=== PATIENT | female | born 1985 | race Caucasian/White ===

== ENCOUNTER 2020-05-05 11:15 | Outpatient (CLI) | payer SELFPAY ==
--- NOTE | 2020-05-05 11:23 | XR_ITS ---
WS: [id number] Chest 2 views, 05/05/2020 Clinical Data: POSITIVE IGR Comparison: None. Findings: No nodules, masses or effusions are seen. The heart is normal. The pulmonary vascularity is not increased. No pneumonia or pneumothorax is seen. No evidence of tuberculosis is present. XR/XR chest 2V* [id number] Impression: Negative chest.
== END 2020-05-05 11:16 | disposition home or self-care (01) ==
PROVIDERS: Visit Provider Family Medicine
DX: R76.12 Nonspecific reaction to cell mediated immunity measurement of gamma interferon antigen response without active tuberculosis (principal)
CPT/HCPCS: 71046

== ENCOUNTER → 2020-07-09 10:18 | Outpatient (BNVA) | payer SELFPAY | PROVIDERS: Visit Provider Obstetrics & Gynecology | DX: Z32.01 Encounter for pregnancy test, result positive (principal) | CPT/HCPCS: 81025 ==

== ENCOUNTER → 2020-07-21 08:54 | Outpatient (BNVA) | payer SELFPAY | PROVIDERS: Visit Provider Nurse Practitioner Women's Health | DX: Z34.90 Encounter for supervision of normal pregnancy, unspecified, unspecified trimester (principal) | CPT/HCPCS: 81000 ==

== ENCOUNTER → 2020-08-05 11:27 | Outpatient (BNVA) | payer SELFPAY | PROVIDERS: Visit Provider Obstetrics & Gynecology | DX: Z34.90 Encounter for supervision of normal pregnancy, unspecified, unspecified trimester (principal) | CPT/HCPCS: 81000 ==

== ENCOUNTER → 2020-09-01 14:51 | Outpatient (BNVA) | payer OTHER, SELFPAY | PROVIDERS: Visit Provider Obstetrics & Gynecology | DX: O09.299 Supervision of pregnancy with other poor reproductive or obstetric history, unspecified trimester (principal); Z12.4 Encounter for screening for malignant neoplasm of cervix; O34.10 Maternal care for benign tumor of corpus uteri, unspecified trimester; D25.9 Leiomyoma of uterus, unspecified | CPT/HCPCS: 80307; 82950; 84315; 85027; 86592; 86762; 86803; 86850; 86900; 87086; 87340; 87491; 87591; 88175 ==

== ENCOUNTER → 2020-10-02 09:40 | Outpatient (BNVA) | payer OTHER, SELFPAY | PROVIDERS: Visit Provider Nurse Practitioner Women's Health | DX: O34.12 Maternal care for benign tumor of corpus uteri, second trimester (principal); O09.292 Supervision of pregnancy with other poor reproductive or obstetric history, second trimester; Z3A.16 16 weeks gestation of pregnancy; O34.10 Maternal care for benign tumor of corpus uteri, unspecified trimester; D25.9 Leiomyoma of uterus, unspecified; O09.299 Supervision of pregnancy with other poor reproductive or obstetric history, unspecified trimester | CPT/HCPCS: 82105; 84315; 87806 ==

== ENCOUNTER → 2020-12-23 11:11 | Outpatient (BNVA) | payer OTHER, SELFPAY | PROVIDERS: Visit Provider Obstetrics & Gynecology | DX: O09.299 Supervision of pregnancy with other poor reproductive or obstetric history, unspecified trimester (principal); O34.10 Maternal care for benign tumor of corpus uteri, unspecified trimester; D25.9 Leiomyoma of uterus, unspecified | CPT/HCPCS: 82950; 84315; 85027 ==

== ENCOUNTER → 2021-01-06 09:01 | Outpatient (BNVA) | payer OTHER, SELFPAY | PROVIDERS: Visit Provider Obstetrics & Gynecology | DX: O99.013 Anemia complicating pregnancy, third trimester (principal); O09.299 Supervision of pregnancy with other poor reproductive or obstetric history, unspecified trimester; R82.90 Unspecified abnormal findings in urine; O34.10 Maternal care for benign tumor of corpus uteri, unspecified trimester; D25.9 Leiomyoma of uterus, unspecified | CPT/HCPCS: 84315; 87077; 87086; 87184 ==

== ENCOUNTER → 2021-02-18 11:30 | Outpatient (BNVA) | payer OTHER, SELFPAY | PROVIDERS: Visit Provider Obstetrics & Gynecology | DX: O99.891 Other specified diseases and conditions complicating pregnancy (principal); R82.71 Bacteriuria | CPT/HCPCS: 84315; 87081; 87086 ==

== ENCOUNTER → 2021-03-04 12:18 | Outpatient (BNVA) | payer OTHER, SELFPAY | PROVIDERS: Visit Provider Obstetrics & Gynecology | DX: Z01.812 Encounter for preprocedural laboratory examination (principal); Z20.822 Contact with and (suspected) exposure to COVID-19 | CPT/HCPCS: 87635 ==

== ENCOUNTER 2021-03-09 14:00 | Outpatient (CLI) | payer OTHER, SELFPAY ==
[2021-03-09 14:25] VITALS: BP 123/77; PULSE 82; TEMP 36.6
[2021-03-09 14:57] VITALS: BP 120/69; PULSE 83
[2021-03-09 17:26] LABS: Basophils % 0.5 %; Eosinophils # 0.2 10^3/uL (0.0-0.8); Eosinophils % 3.1 %; Hematocrit 33.1 % (37.0-47.0); Lymphocytes # 1.6 10^3/uL (0.8-4.8); Lymphocytes % 25.5 %; Mean Corpuscular HGB Conc 33.2 g/dL (30.0-36.0); Mean Corpuscular Hemoglobin 29.7 pg (28.0-34.0); Mean Corpuscular Volume 89.5 fL (81-99); Mean Platelet Volume 10.3 fL (7.4-10.4); Monocytes # 0.5 10^3/uL (0.2-0.9); Monocytes % 7.6 %; Neutrophils # 4.05 10^3/uL (1.8-7.7); Nucleated Red Blood Cells % 0 %; Platelet Count 324 10^3/cmm (130-400); Red Cell Distribution Width 16.9 % (12.1-15.1); White Blood Count 6.4 10^3/uL (4.0-10.0)
[2021-03-10 06:27] VITALS: BMI 28.8
== END 2021-03-09 15:10 | disposition home or self-care (01) ==
LOC: OPOB 14:03 → OBGYN 14:04
PROVIDERS: Obstetrics & Gynecology; Visit Provider Obstetrics & Gynecology
DX: O61.9 Failed induction of labor, unspecified (principal); Z3A.00 Weeks of gestation of pregnancy not specified
CPT/HCPCS: 59025; 84315; 85025; 99211

== ENCOUNTER 2021-03-10 06:17 | Inpatient (IN) | payer OTHER, SELFPAY ==
[2021-03-10] VITALS (16 sets, daily range): BP systolic 112–146; BP diastolic 53–95; PULSE 71–102; RESP 16–18; TEMP 36.5–37.1; O2SAT 98–99; BMI 28.8
--- NOTE | 2021-03-10 06:30 | PC.NURSE ---
bedside US completed at 0620 to confirm position. Lead Cook along with MACARENA RN and WEN RN confirm positioning to be head down at 0620. Dr. Bowers to room at 0623 to confirm position with US as well. stated fetus to be head down. SVE of /-4 vertex was then done by at 0625
[2021-03-10] MEDS: oxytocin 30 UNIT/500 ML BAG IV (08:00)
[2021-03-10] MEDS: dextrose 5%-lactated ringers 1,000 ML 125 ML IV ×2 (08:05→18:24)
--- NOTE | 2021-03-10 13:30 | P.HPUD_ITS ---
Labor & Delivery H&P Update Date of Procedure: March 10, 2021 Date H&P Performed: 03/09/21 H&P update information: I have reviewed H&P completed within last 30 days, I have examined patient prior to procedure, Changes to prior documentation as noted here and H&P is in [facility] EMR on date indicated Changes to previous documentation: Fetus is cephalic now-we will start Pitocin for induction of labor. Discussed that this is an unstable lie and if the fetus change position again and becomes in her mouth position I would recommend a C- section. Labor and Delivery nurses notified to do scans if presenting partner felt on pelvic exam. Admission Diagnosis: Primary indication for procedure: Induction, possible Planned procedure: Operation Date: 03/10/21 13:30 Proposed Procedures p Section(Not Applicable) - Rdorick Power MD
[2021-03-10] MEDS: lactated ringers 1,000 ML 999 ML IV (15:21)
[2021-03-10] MEDS: metoclopramide 5 mg/mL SDV 2 mL 10 MG IV (15:22)
[2021-03-10] MEDS: famotidine 20 mg/2 mL INJ IVP (15:22)
--- NOTE | 2021-03-10 15:30 | PC.NURSE ---
pt ambulated to OR suite
--- NOTE | 2021-03-10 15:58 | ANES.PREANE2 ---
Pre-Anesthetic Assessment Pre-Anesthetic Assessment: Height/Weight: Height 1.68 m Weight 81.193 kg Temp Pulse Resp BP 97.7 F 75 18 120/77 03/10/21 08:01 03/10/21 13:39 03/10/21 06:30 03/10/21 13:39 Proposed Procedure: Operation Date: 03/10/21 13:30 Proposed Procedures p Section(Not Applicable) - Rodrick Power MD Was Beta Maryam taken within 24 hours: N/A Was Clonidine taken within 24 hours: N/A Social: Social History: No alcohol and No tobacco Exam: Pre-Anes Outpt Exam: alert, oriented x 3, clear to auscultation bilaterally and regular rate & rhythm Airway: Submandibular: WNL Cervical ROM: WNL MP: 2 Dentition: Full CV/HEM: CV/HEM: Anemia Anesthetic Plan: ASA status: 2 Anesthesia: Regional (specify below) (SAB) Risk of > 500 ml blood loss (7ml/kg in children): Yes, adequate IV access and fluids planned Meds/Allergies Current Medications: Current Medications Generic Name Dose Route Start Last Admin Trade Name Freq PRN Reason Stop Dose Admin Dextrose/Lactated Ringer's 1,000 mls @ 125 m ls/hr 03/10/21 07:15 03/10/21 08:05 Dextrose 5%-Lact ated Ringers IV 125 mls/hr .Q8H RUSSELL Administration Oxytocin 30 unit in 500 ml s @ 1 mls/hr 03/10/21 08:00 03/10/21 08:00 Pitocin IV 1 milliunit/min .Q24H RUSSELL 1 mls/hr Administration Protocol 1 MILLIUNIT/MIN Lactated Ringer's 1,000 mls @ 999 m ls/hr 03/10/21 14:09 03/10/21 15:21 Lactated Ringers IV 999 mls/hr .Q1H1M PRN Administration Per L&D Rescitati on Protocol PFSH Anesthesia PFSH: Medical History No pertinent past medical history Denies diabetes, asthma, hypertension, seizures, DVT/PE PCP: Sees any of the providers at [facility] Surgical History No pertinent past surgical history Family History Brother Diabetes Father Heart disease Hypertension Grandmother Stroke Paternal Denies family history of Colon cancer Ovarian cancer Hyperlipidemia Breast cancer Uterine cancer Thyroid disease Female Reproductive History: : 2 Data Anesthesia Cardiac Studies: No Data to Display
[2021-03-10] MEDS: methylergonovine 0.2 mg/mL INJ 1 mL IM (16:06)
--- NOTE | 2021-03-10 17:00 | P.OP_ITS ---
Operative Report Date of procedure: March 10, 2021 OPERATIVE REPORT Date of surgery: 03/10/2021 Date of dictation: 03/10/2021 Preoperative diagnosis: 35-year-old 3 para 1-0-1-1 at 39 weeks and 3 days gestation, unstable lie, macrosomia, anemia on iron Postoperative diagnosis/findings: Same, baby boy weighing 10 pounds 0 ounces Apgars of 8/9, compound presentation with hand overhead, clear fluid, normal tubes and ovaries bilaterally. Procedure done: Primary low transverse delivery via Pfannenstiel incision Specimens removed/disposition of specimens: Placenta and cord which were discarded Surgeon: Dr. Rodrick Bowers [employer] Supervisor: Lavern Georges Anesthesia: Spinal anesthesia Estimated blood loss: 900 ml Intravenous fluids: 600 mL of LR Urine output: 100 mL of clear urine at the end of procedure Medications: As per anesthesia records Complications: None, patient was left to recover in a stable condition with baby INDICATION FOR SURGERY: Ms. Farmer is a 35-year-old 3 para 1-0-1-1 at 39 weeks and 3 days who presented to labor and delivery on 03/10/2021 for scheduled version, possible delivery for transverse lie. When she had presented on 03/09/2021 for scheduled induction she was noted to have a baby in transverse position and at that visit we discussed options for version versus primary and she is scheduled to come in on 03/10/2021 for this procedure. On her arrival fetus was noted to be in cephalic presentation however station was still pretty high at - 5. We discussed at that time that since baby is cephalic we should start induction with Pitocin and hopefully the baby will stay cephalic however since the baby changed positions there is a high risk that the baby can flip back to transverse position--unstable lie. If this happens during the induction process she will need a . She was agreeable with this and had no questions. Risks and benefits of induction versus reviewed with patient. Induction was started with Pitocin and about 1-1/2 hours into the induction after patient got up and use the bathroom to void there was a change in the position of heart rate and ultrasound performed showed fetus was back to being transverse presentation with head in the right middle quadrant. Given this unstable lie after counseling we decided to proceed with and patient agreed. Consents were signed. PROCEDURE: After consent was obtained, patient was taken to the operating room where spinal anesthesia was placed without difficulty. She was placed supine on the table with a left lateral wedge. Quijano catheter and SCDs were placed. The abdomen was shaved and then prepped with duo prep. She was draped in a sterile fashion. After checking adequacy of anesthesia, a Pfannenstiel incision was made 2 cm above the pubic symphysis. The incision was carried down to the fascia using the Bovie. The fascia was nicked in the midline and the fascial incision was extended laterally using curved Mayos. The inferior aspect of the fascia was grasped with lasha clamps and dissected off from the underlying rectus muscle. This was repeated again superiorly without any difficulty. The rectus muscle was . A moreno was made in the peritoneum and the peritoneal incision was carried inferiorly taking care to proceed in layers so as to avoid the bladder. The peritoneal incision was extended superiorly as well. No adhesions were noted from the uterus to the anterior abdominal wall. The uterus was noted to be rotated to the left. The bladder peritoneum was grasped with smooth forceps a bladder flap was created. the bladder blade was replaced thus protecting the bladder. A LOW TRANSVERSE UTERINE INCISION was made with a scalpel till the amniotic membrane was reached. The uterine incision was then extended laterally using bandage scissors. Amniotomy was done with Allis clamps and clear amniotic fluid was drained. The head of the baby was brought up to the level of the incision and delivered with fundal pressure. The remainder of body followed without any difficulty. The nose and mouth were suctioned, the umbilical cord was clamped and cut and the baby was handed off to the waiting head of store operations, Dr. Hagen. The placenta was delivered spontaneously with fundal massage. It was noted to be intact and was discarded. The interior of the uterus was cleaned of all clot and debris and was noted to be boggy. Fundal massage was done and the tone did improve however became boggy shortly after again. Decision was gave need to give Methergine to help with uterine contractility and she was given a single dose after which the uterus stayed firm and was noted to be kolton well. T he uterus was exteriorized. The uterine incision was closed with 0 Vicryl in a running interlocking manner. Good hemostasis and reapproximation was obtained. Second interrupted imbricating layer was done. Good hemostasis was noted. The abdomen was irrigated and the gutters were cleaned of clot and debris. Normal tubes and ovaries were noted bilaterally. The uterus was placed back into the abdomen and uterine incision was noted to be hemostatic. The peritoneum was closed with a 2-0 plain in a continuous stitch. The rectus muscle was reapproximated with 2-0 plain suture in a mattress stitch. Good hemostasis was noted in the rectus muscle layer. The fascia was inspected for any defects and none were found and the fascia was closed with 0 Vicryl in continuous stitch. The subcutaneous plane was then irrigated and hemostasis was obtained using the Bovie. The subcutaneous plane was then reapproximated using 2-0 plain suture in a continuous manner. The skin was then closed with 4-0 Monocryl in a subcuticular fashion. Good reapproximation and hemostasis was noted. Steri-Strips were applied. The incision was dressed with Telfa ,ABD and paper tape. The fundus was noted to be firm at the end of the procedure and excess blood was expressed from the vagina. The patient was left to recover in a stable condition. This documentation was created by [employer] minister helper software (known for inherent minister helper error). Every effort was made to assure accuracy of minister helper. Any obvious errors or omissions should be clarified with the author of the document. History History History 3 Term 2 Miscarriages/Ectopic 1 0 Living Children 2 Other History: 3, Para 1011, x 1 SAB x 1 CD X 1 1---> 08/17/2013, male,(Stef) 9lbs 9oz, full-term vaginal delivery- had episiotomy, no complications with or delivery, delivered at [place], [place]. Denies diabetes during the 2---> 2017, SAB at 5 week gestation, no D&C required 3---> 03/10/2021, male(March), 10 pounds 0 ounces, primary low transverse delivery for unstable lie delivered by Dr. Bowers at [facility] Medical History (Updated 03/09/21 @ 18:03 by Rodrick Power MD) No pertinent past medical history Denies diabetes, asthma, hypertension, seizures, DVT/PE PCP: Sees any of the providers at [facility] Surgical History (Updated 03/10/21 @ 17:08 by Rodrick Power MD) Status post delivery 03/10/2021--primary low transverse delivery by Dr. Bowers at [facility] for unstable lie. ---> No extensions, double layer closure Family History Brother Diabetes Father Heart disease Hypertension Grandmother Stroke Paternal Denies family history of Colon cancer Ovarian cancer Hyperlipidemia Breast cancer Uterine cancer Thyroid disease Supplemental [facility] Information - Tobacco Use: Denies, never smoked. Drug Use: Denies Alcohol Use: Drank socially prior to . 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 Has been working there since May 2020 Other Female Reproductive History Menstrual History Comment: Menarche at age 14 with a cycle length of 28-30 days and a bleeding duration of 5 days. Sexual History Sexual History Comment: Coitarche at age 26, 4 lifetime partners, has with her current partner and father of her baby, Ezekiel, since 2018. He works in law enforcement STD History Comment: Has had chlamydia in the past which was treated. Denies any other sexually transmitted diseases Contraception Contraception History Comment: She has used condoms and control pills in the past for contraception. Considering progesterone only options for contraception .
[2021-03-10] MEDS: ondansetron 2 mg/ML SDV 2 mL 4 MG IVP ×2 (17:42→19:29)
[2021-03-10] MEDS: promethazine 25 mg/mL SDV 1 mL IM (19:41)
--- NOTE | 2021-03-11 00:48 | PC.NURSE ---
This nurse noted blood on the outside of patient bandage. Skin around bandage was cleaned then telfa, ABD and paper tape were replace with same materials. Incision was clean with no signs of drainage.
[2021-03-11 01:30] VITALS: BP 124/86; PULSE 96; RESP 16
[2021-03-11] MEDS: dextrose 5%-lactated ringers 1,000 ML 125 ML IV (02:09)
[2021-03-11 03:00] VITALS: BP 124/82; PULSE 94; RESP 16
[2021-03-11 04:17] LABS: Hemoglobin 9.6 g/dL (11.5-15.3); Mean Corpuscular HGB Conc 33.1 g/dL (30.0-36.0); Mean Corpuscular Hemoglobin 29.7 pg (28.0-34.0); Mean Corpuscular Volume 89.8 fL (81-99); Mean Platelet Volume 9.2 fL (7.4-10.4); Platelet Count 253 10^3/cmm (130-400); Red Blood Count 3.23 10^6/uL (4.1-5.3); Red Cell Distribution Width 16.4 % (12.1-15.1)
[2021-03-11] MEDS: HYDROcodone-acetaminophen 5-325 mg Tablet PO (04:47)
--- NOTE | 2021-03-11 06:15 | P.PN_ITS ---
Subjective Subjective: Interval history: SUBJECTIVE: Ms. Farmer is doing okay today. She really does not have a whole lot of pain. Feels a lot better than yesterday her nausea is completely resolved. She has been tolerating clear liquid diet without any nausea and denies heavy vaginal bleeding. She is breast-feeding well and denies any problems with the. She would like her son to be circumcised. She denies shortness of breath, chest pain, nausea, vomiting. Has been burping but has not yet passed gas. Catheter was just taken out about 1 hour before and she has not voided since catheter removal. OBJECTIVE/PHYSICAL EXAM: Gen.: No acute distress Heart: S1-S2 heard, regular rate and rhythm Lungs: Clear to auscultation bilaterally Abdomen: Soft, fundus firm below umbilicus, tenderness around incision. Incision: Dressing on appears clean dry and intact Legs: No calf tenderness, no pedal edema. ASSESSMENT AND PLAN: 35-year-old 2 para 2002 status post primary delivery, postoperative day #1 -Continue routine postoperative care -Encourage ambulation, SCDs while in bed -P.o. pain medication -Advance diet to full liquid diet and then to regular only once patient passes flatus -Vital signs stable, hemoglobin stable at 9.6 -Once she tolerates full liquid diet cut down fluids to 50 mL an hour -Dressing can come off the afternoon and patient may shower -Incentive spirometer use encouraged -Anticipate discharge home in the next couple of days depending on how she recovers postoperatively -Counseled about circumcision, informed consent obtained--- plan for circum cision today. Vitals/I&O/Wt Last Vital Signs Temp 98.7 F 03/10/21 22:32 Pulse 96 03/11/21 01:30 Resp 16 03/11/21 01:30 BP 124/86 03/11/21 01:30 Pulse Ox 99 03/10/21 17:30 03/10/21 03/10/21 03/11/21 14:59 22:59 06:59 Intake Total 1.50 / 1.50 1965.000 / 1966.500 968.75 / 2935.250 Output Total 550 / 550 725 / 1275 Balance 1.50 / 1.50 1415.000 / 1416.500 243.75 / 1660.250 Weight last 48 hrs Weight 179 lb Physical Exam Urinary Catheter Management^: Quijano: Cath Placed During This Visit: yes, but has since been removed by the nurse Reason for Continuing Indwelling Catheter: Decision to DC Catheter Urinary Catheter Date of Insertion: 03/10/21 Urinary Catheter Time of Insertion: 15:45 Date Urinary Catheter Removed: 03/11/21 Time Urinary Catheter Discontinued: 05:00 Data : 03/11/21 04:07 Attestations Medical Necessity Statement*: Needs to stay couple more days to recover from delivery Coding Level of Care Code Acute Kiln Furniture Saw Tender for Edward Jerez
--- NOTE | 2021-03-11 06:56 | ANE.PACU2 ---
Inpatient post-anesthesia follow up: Airway intact: Yes Vital signs: Temperature 98.7 F Pulse Rate 96 Respiratory Rate 16 Blood Pressure 124/86 Pulse Oximetry 99 Oxygen Delivery Me thod Room Air Oxygen Flow Rate Fraction of Inspir ed Oxygen Hydration adequate: Yes Nausea and vomiting: No Pain level: 2 Mental status: Baseline
[2021-03-11] MEDS: ibuprofen 800 mg tablet PO ×4 (09:22→21:37)
[2021-03-11] MEDS: ferrous sulfate EC 325 mg Tablet PO ×2 (09:22→18:03)
[2021-03-11] MEDS: prenatal vitamin Capsule 1 CAP PO (09:22)
[2021-03-11] MEDS: docusate sodium 100 mg Capsule PO ×2 (09:22→18:03)
[2021-03-11 09:25] VITALS: BP 138/81; PULSE 98; RESP 16; TEMP 36.7
[2021-03-11 16:00] VITALS: BP 127/72; PULSE 95; RESP 18; TEMP 36.8
[2021-03-11 17:34] VITALS: BP 115/77; PULSE 95; RESP 16; TEMP 37.2; O2SAT 99
[2021-03-11 21:38] VITALS: BP 123/74; PULSE 97; RESP 16; O2SAT 99
[2021-03-12 04:34] VITALS: BP 103/67; PULSE 93; RESP 16; TEMP 36.9; O2SAT 96
--- NOTE | 2021-03-12 06:41 | PC.NURSE ---
2100 dose Ibuprofen was scanned and saved. When this nurse opened MAR the next time pt needed medication it had not been save so I manually documented it.
[2021-03-12] MEDS: HYDROcodone-acetaminophen 5-325 mg Tablet PO (06:44)
--- NOTE | 2021-03-12 08:28 | PM.OBGYDC ---
Discharge Providers DIRECTOR EMERGENCY DEPARTMENT Date of Admission: 03/10/21 06:17 Date of Discharge: 03/12/21 Attending Provider at Admission: Rodrick Power MD Attending Provider at Discharge: Rodrick Power MD Preoperative diagnosis: 35-year-old 3 para 1-0-1-1 at 39 weeks and 3 days gestation, unstable lie, macrosomia, anemia on iron Postoperative diagnosis/findings: Same, baby boy weighing 10 pounds 0 ounces Apgars of 8/9, compound presentation with hand overhead, clear fluid, normal tubes and ovaries bilaterally. Procedure done: Primary low transverse delivery via Pfannenstiel incision Specimens removed/disposition of specimens: Placenta and cord which were discarded Complications: None, patient was left to recover in a stable condition with baby INDICATION FOR SURGERY: Ms. Farmer is a 35-year-old 3 para 1-0-1-1 at 39 weeks and 3 days who presented to labor and delivery on 03/10/2021 for scheduled version, possible delivery for transverse lie. When she had presented on 03/09/2021 for scheduled induction she was noted to have a baby in transverse position and at that visit we discussed options for version versus primary and she is scheduled to come in on 03/10/2021 for this procedure. On her arrival fetus was noted to be in cephalic presentation however station was still pretty high at -5. We discussed at that time that since baby is cephalic we should start induction with Pitocin and hopefully the baby will stay cephalic however since the baby changed positions there is a high risk that the baby can flip back to transverse position--unstable lie. If this happens during the induction process she will need a . She was agreeable with this and had no questions. Risks and benefits of induction versus reviewed with patient. Induction was started with Pitocin and about 1-1/2 hours into the induction after patient got up and use the bathroom to void there was a change in the position of heart rate and ultrasound performed showed fetus was back to being transverse presentation with head in the right middle quadrant. Given this unstable lie after counseling we decided to proceed with and patient agreed. HOSPITAL COURSE: She underwent an uncomplicated primary delivery for unstable lie on 03/10/2021. She did well on day 0 and was ambulating well, tolerating clear liquid, voiding freely, passing flatus. She was breast-feeding without difficulty and bonding well with her son. Circumcision was performed on her son on day of life 1 per her request without any difficulty. Pain was well-controlled with by mouth pain medication. She denied nausea, vomiting, fever, chills, shortness of breath, leg pain. She had moderate vaginal bleeding. On day # 1 she continued to do well with stable vital signs and stable hemoglobin at 9.6. She tolerated regular diet after passing flatus and denied any further problems. She continued to do well on postoperative day #2.. She was discharged home on day 2 in a stable condition, as she desired early discharge. Warning signs for endometritis, mastitis, DVT/PE, wound infection were reviewed with her. Post delivery activity restrictions were also reviewed with her at all her questions were answered to her satisfaction. She plans on using pills for contraception--this will be started at her post visit EXAM AT DISCHARGE: Gen.: No acute distress Heart: S1-S2 heard, regular rate and rhythm Lungs: Clear to auscultation bilaterally Abdomen: Soft, fundus firm below umbilicus, tenderness around incision. Incision: Clean dry and intact with Steri-Strips. Legs: No calf tenderness, no pedal edema. CONDITION AT DISCHARGE: Stable This documentation was created by [employer] hat and cap sewer software (known for inherent hat and cap sewer error). Every effort was made to assure accuracy of hat and cap sewer. Any obvious errors or omissions should be clarified with the author of the document. Information Peripartum Data: Delivery Method: Physical Exam Urinary Catheter Management^: Quijano: Cath Placed During This Visit: yes, but has since been removed by the nurse Reason for Continuing Indwelling Catheter: Decision to DC Catheter Urinary Catheter Date of Insertion: 03/10/21 Urinary Catheter Time of Insertion: 15:45 Date Urinary Catheter Removed: 03/11/21 Time Urinary Catheter Discontinued: 05:00 Discharge Data Vitals: Last Vital Signs Temp 98.4 F 03/12/21 04:34 Pulse 93 03/12/21 04:34 Resp 16 03/12/21 04:34 BP 103/67 03/12/21 04:34 Pulse Ox 96 03/12/21 04:34 Discharge Plan Discharge Patient Disposition: Home Condition: Stable Prescriptions: New ibuprofen 800 mg tablet 800 mg PO Q8H Qty: 30 RF: 0 docusate sodium 100 mg Capsule 100 mg PO BID PRN (Reason: constipation) Qty: 30 RF: 0 hydrocodone-acetaminophen 5-325 mg tablet 1 tab PO Q6H Qty: 20 RF: 0 Continued prenat.vits,jazmin,[id number] Tablet 1 tab PO DAILY RF: 0 Discontinued ferrous sulfate 325 mg (65 mg iron) tablet,delayed release (DR/EC) 325 mg PO BID Qty: 90 RF: 2 No Action (DME) breast pump [Pump In Style Advanced] Device See Rx Instructions .ROUTE .MEDSUPPLY Qty: 1 RF: 0 Discharge Orders: Discharge Order (Routine); Ordered 03/12/21 Ordered By: Rodrick Power Referrals: Rodrick Power MD [Physician] - 03/23/21 9:15 am (Your 2 week incision check is scheduled for 03/23/21 @ 9:15. Your 6 week post-op appointment is scheduled for 04/20/21 @ 10:30. ) Discharge Diet: Usual diet Discharge Activity: Limit activity as instructed Patient Instructions: Vitamins (By mouth), Depression (GEN), Pre-eclampsia and Eclampsia (DC), Bleeding (DC), OB C, OB Discharge Report, OB Food/Drug Interaction Guide, Opioid Safety, OB Proud Parent Packet Activity Restrictions/Additional Instructions: Pelvic rest for 6 weeks, no heavy lifting for 6 weeks, 2-week and 6-week postoperative visit with Dr. Bowers. Discharge Attestations DIRECTOR EMERGENCY DEPARTMENT Time Spent in Discharge Care*: greater than 30 min Coding Level of Care Code Acute Structural Iron Worker for Edward Jerez
[2021-03-12] MEDS: prenatal vitamin Capsule 1 CAP PO (09:13)
[2021-03-12] MEDS: ibuprofen 800 mg tablet PO (09:13)
[2021-03-12] MEDS: docusate sodium 100 mg Capsule PO (09:13)
[2021-03-12] MEDS: ferrous sulfate EC 325 mg Tablet PO (09:14)
[2021-03-12 10:36] VITALS: BP 111/65; PULSE 94; RESP 16; TEMP 36.8; O2SAT 99
== END 2021-03-12 11:28 | disposition home or self-care (01) | DRG 788 ==
PROVIDERS: Admitting Provider Obstetrics & Gynecology; Visit Provider Obstetrics & Gynecology
PROC: 10D00Z1 Extraction of Products of Conception, Low, Open Approach (ICD-10-PCS; CPT 59514; principal; 2021-03-10 13:30)
DX: O32.2XX0 Maternal care for transverse and oblique lie, not applicable or unspecified (principal); O36.63X0 Maternal care for excessive fetal growth, third trimester, not applicable or unspecified; O99.02 Anemia complicating childbirth; D64.9 Anemia, unspecified; O34.13 Maternal care for benign tumor of corpus uteri, third trimester; D25.9 Leiomyoma of uterus, unspecified; Z3A.39 39 weeks gestation of pregnancy; Z37.0 Single live birth
CPT/HCPCS: 36415; 51702; 59025; 59409; 85027; 96372; 96374; 96375; 98960; 99211; J0690; J2210; J2274; J2405; J2550; J2765; J3010; J3490; J7030

== ENCOUNTER → 2021-04-20 14:31 | Outpatient (BNVA) | payer OTHER, SELFPAY | PROVIDERS: Visit Provider Obstetrics & Gynecology | DX: Z30.9 Encounter for contraceptive management, unspecified (principal) | CPT/HCPCS: 81025 ==

== ENCOUNTER → 2021-04-30 08:09 | Outpatient (BNVA) | payer OTHER, SELFPAY | PROVIDERS: Visit Provider Obstetrics & Gynecology | DX: D25.9 Leiomyoma of uterus, unspecified (principal); N83.201 Unspecified ovarian cyst, right side | CPT/HCPCS: 76857 ==

== ENCOUNTER → 2021-08-09 15:39 | Outpatient (BNVA) | payer OTHER, SELFPAY | PROVIDERS: Visit Provider Family Medicine | DX: J01.90 Acute sinusitis, unspecified (principal); R05.9 Cough, unspecified | CPT/HCPCS: 87400; 87635 ==

== ENCOUNTER 2022-02-03 15:32 | Outpatient (CLI) | payer OTHER, SELFPAY | END 2022-02-03 15:33 | disposition home or self-care (01) | LOC: LAB 15:37 | PROVIDERS: PCP Obstetrics & Gynecology; Visit Provider Obstetrics & Gynecology | DX: Z32.00 Encounter for pregnancy test, result unknown (principal) | CPT/HCPCS: 36415; 84702 ==

== ENCOUNTER → 2022-02-04 13:10 | Outpatient (BNVA) | payer OTHER, SELFPAY | PROVIDERS: PCP Obstetrics & Gynecology; Visit Provider Obstetrics & Gynecology | DX: Z30.9 Encounter for contraceptive management, unspecified (principal) | CPT/HCPCS: 81025 ==

== ENCOUNTER → 2023-08-10 08:30 | Outpatient (BNVA) | payer OTHER, SELFPAY | PROVIDERS: PCP Obstetrics & Gynecology; Visit Provider Obstetrics & Gynecology | DX: N90.89 Other specified noninflammatory disorders of vulva and perineum (principal) | CPT/HCPCS: 81025; 88305 ==

== ENCOUNTER 2024-06-27 08:27 | Inpatient (IN) | payer OTHER, SELFPAY ==
[2024-06-27] VITALS (22 sets, daily range): BP systolic 100–149; BP diastolic 62–93; PULSE 96–130; RESP 14–26; TEMP 36.4–39.7; O2SAT 93–100; BMI 32.4
--- NOTE | 2024-06-27 08:45 | ED_ITS ---
HPI - Female Genitourinary 2 General: Chief complaint: Urogenital-Female Stated complaint: Poss UTI Time Seen by Provider: 06/27/24 08:30 Source: patient Mode of arrival: ambulatory Limitations: no limitations History of Present Illness: 39-year-old female whose had swelling pa in in her left buttocks for the last 6 days. She has seen urgent care and was told she had hemorrhoids she states she is a lot more pain swelling no erythema and some drainage. She denies any vomiting or diarrhea. Associated symptoms: Deny abdominal pain, headache(s) or nausea Related Data Previous Rx's Medication Instructions Recorded medroxyprogesterone 150 mg/mL 150 mg IM .every 10-12 weeks #1 mL 09/06/23 intramuscular suspension (Depo-Provera) hydrocortisone 1 %-pramoxine 1 % 1 applic MD QID PRN itching #10 06/24/24 rectal foam (Proctofoam HC) grams phenylephrine HCl 0.25 % rectal 1 supp MD BID PRN hemorrhoids #12 06/24/24 suppository (Preparation H (pe)) ea Allergies Allergy/AdvReac Type Severity Reaction Status Date / Time No Known Allergies Allergy Verified 06/27/24 08:28 Review of Systems 2 Const: Denies: fever(s), chills, body aches or change in appetite ENMT: Denies: throat pain or dental pain Card: Denies: chest pain Resp: Denies: dyspnea GI: Denies: abdominal pain, nausea, vomiting or diarrhea Musc: Denies: neck pain or back pain Skin/Breast: Denies: rash Neuro: Denies: headache(s) PFSH ED 2 PFSH: Medical History No pertinent past medical history Denies diabetes, asthma, hypertension, seizures, DVT/PE PCP: Sees any of the providers at [facility] Surgical History Status post delivery 03/10/2021--[place] transverse [place] [facility] [place]. ---> No extensions, double layer closure Family History Brother Diabetes Father Heart disease Hypertension Grandmother Stroke Paternal Denies family history of Colon cancer Ovarian cancer Hyperlipidemia Breast cancer Uterine cancer Thyroid disease Social History Smoking and tobacco/nicotine status: never used tobacco/nicotine Second hand smoke exposure: No Alcohol intake: never Substance/Drug Use: never Procedures Abscess I/D Site: other (gluteal cleft) Side (if applicable): left Local Anesthetic: lidocaine 1% Amount of anesthesia used (mL): 10 Technique: incised with #11 blade Packing used?: iodoform Course 2 Vital Signs: Vital signs: Vital Signs Temperature 97.5 F L 06/27/24 08:28 Pulse Rate 116 H 06/27/24 08:28 Respiratory Rate 17 06/27/24 08:48 Blood Pressure 135/84 06/27/24 08:28 Pulse Oximetry 98 06/27/24 08:48 MDM - Female Medical Decision Making Patient presents here with perianal abscess did have a large amount of drainage CAT scan if she still has a deep fluid pocket and elevated white count I spoke to general surgeon who is going to admit and likely take to the OR for further drainage Medical Records I reviewed the patient's medical records. Lab Data I reviewed the patient's lab results. 06/27/24 08:45 06/27/24 08:45 Radiology Impressions Abdomen/Pelvis CT 06/27/24 09:10 IMPRESSION: 1. Midline to left-sided Perianal abscess, as described above. Adjacent severe edema, fluid and air bubbles extending into the posterior left gluteal deep subcutaneous tissues. Recommend surgical consultation. 2. Acute appendicitis, as described above. Recommend surgical consultation. 3. Moderate to severe hepatic steatosis. Nonspecific heterogeneous and irregular appearance of the liver. Recommend correlation with liver function tests. 4. Indeterminate liver hypodensity, described above. Consider imaging followup. 5. Indeterminate pancreas hypodensity, described above. Recommend further evaluation with dynamic pre-and postcontrast MRI. Laboratory Results WBC 17.03 10^3/uL (3.29-11.43) H 06/27/24 08:45 RBC 4.06 10^6/uL (3.85-5.65) 06/27/24 08:45 Hgb 11.30 g/dL (11.27-16.99) 06/27/24 08:45 Hct 34.0 % (36-47) L 06/27/24 08:45 MCV 83.7 fl (85-98) L 06/27/24 08:45 MCH 27.8 pg (27-33) 06/27/24 08:45 MCHC 33.2 g/dL (30-55) 06/27/24 08:45 RDW 13.9 % (12.1-15.1) 06/27/24 08:45 Plt Count 358 10^3/cmm (157-399) 06/27/24 08:45 MPV 8.2 fL (7.4-10.4) 06/27/24 08:45 Neut % (Auto) 84.5 % 06/27/24 08:45 Lymph % (Auto) 7.2 % 06/27/24 08:45 [place] % (Auto) 6.9 % 06/27/24 08:45 Eos % (Auto) 0.2 % 06/27/24 08:45 Baso % (Auto) 0.3 % 06/27/24 08:45 Neut # (Auto) 14.40 10^3/uL (1.8-7.7) H 06/27/24 08:45 Lymph # (Auto) 1.2 10^3/uL (0.8-4.8) 06/27/24 08:45 [place] # (Auto) 1.2 10^3/uL (0.2-0.9) H 06/27/24 08:45 Eos # (Auto) 0.0 10^3/uL (0.0-0.8) 06/27/24 08:45 Baso # (Auto) 0.1 10^3/uL (0.0-0.1) 06/27/24 08:45 Nucleated RBC % (auto) 0 % 06/27/24 08:45 Nucleated RBCs # 0.0 /100WBC 06/27/24 08:45 Sodium 136 mmol/L (136-145) 06/27/24 08:45 Potassium 3.1 mmol/L (3.5-5.1) L 06/27/24 08:45 Chloride 100 mmol/L (98-107) 06/27/24 08:45 Carbon Dioxide 19 mmol/L (22-29) L 06/27/24 08:45 Anion Gap 20.1 (5-19) H 06/27/24 08:45 BUN 11 mg/dL (6-20) 06/27/24 08:45 Creatinine 0.5 mg/dL (0.5-0.9) 06/27/24 08:45 GFR Calculation 138.1 mL/min (90-130) H 06/27/24 08:45 Glucose 115 mg/dL (65-115) 06/27/24 08:45 Calculated Osmolality 282 mOsm/kg (285-295) L 06/27/24 08:45 Calcium 9.7 mg/dL (8.5-10.5) 06/27/24 08:45 Total Bilirubin 0.6 mg/dL (0.15-1.2) 06/27/24 08:45 AST 16 U/L (0-32) 06/27/24 08:45 ALT 31 U/L (0-33) 06/27/24 08:45 Alkaline Phosphatase 95 U/L (35-105) 06/27/24 08:45 Total Protein 6.7 g/dL (6.6-8.7) 06/27/24 08:45 Albumin 3.8 g/dL (3.5-5.2) 06/27/24 08:45 Globulin 2.9 g/dL (1.3-4.6) 06/27/24 08:45 All radiology interpretation(s) finalized by discharge Discharge Plan Discharge Patient Disposition: Admitted As Inpatient Clinical Impression: Abscess, perianal Condition: Stable Prescriptions: No Action Proctofoam HC 1-1 % foam 1 applic MD QID PRN (Reason: itching) Qty: 10 0RF Preparation H (pe) 0.25 % suppository 1 supp MD BID PRN (Reason: hemorrhoids) Qty: 12 0RF medroxyprogesterone [Depo-Provera] 150 mg/mL suspension 150 mg IM .every 10-12 weeks Qty: 1 3RF Referrals: Jonathon Gil MD [Primary Care Provider] - Coding Level of Care Code ED Medical Science Liaison for g Meri
[2024-06-27] MEDS: LORazepam 2 mg/mL INJ 1 mL 1 MG IVP (08:48)
[2024-06-27] MEDS: morphine 4 mg/mL SDV 1 mL IVP (08:48)
[2024-06-27 08:54] LABS: Basophils # 0.1 10^3/uL (0.0-0.1); Basophils % 0.3 %; Eosinophils % 0.2 %; Lymphocytes # 1.2 10^3/uL (0.8-4.8); Lymphocytes % 7.2 %; Mean Corpuscular HGB Conc 33.2 g/dL (30-55); Mean Corpuscular Hemoglobin 27.8 pg (27-33); Mean Corpuscular Volume 83.7 fl (85-98); Mean Platelet Volume 8.2 fL (7.4-10.4); Monocytes # 1.2 10^3/uL (0.2-0.9); Monocytes % 6.9 %; Neutrophils % 84.5 %; Nucleated Red Blood Cells % 0 %; Platelet Count 358 10^3/cmm (157-399); Red Blood Count 4.06 10^6/uL (3.85-5.65); Red Cell Distribution Width 13.9 % (12.1-15.1); White Blood Count 17.03 10^3/uL (3.29-11.43)
[2024-06-27 09:10] LABS: Alanine Aminotransferase 31 U/L (0-33); Albumin Level 3.8 g/dL (3.5-5.2); Alkaline Phosphatase 95 U/L (35-105); Anion Gap 20.1 (5-19); Aspartate Amino Transferase 16 U/L (0-32); Blood Urea Nitrogen 11 mg/dL (6-20); Calcium 9.7 mg/dL (8.5-10.5); Carbon Dioxide 19 mmol/L (22-29); Chloride 100 mmol/L (98-107); Creatinine Clr Calc Pharmacy 167.5728; Globulin 2.9 g/dL (1.3-4.6); Glomerular Filtration Rate 138.1 mL/min (90-130); Glucose 115 mg/dL (65-115); Osmolality Calculated 282 mOsm/kg (285-295); Potassium 3.1 mmol/L (3.5-5.1); Sodium 136 mmol/L (136-145); Total Bilirubin 0.6 mg/dL (0.15-1.2); Total Protein 6.7 g/dL (6.6-8.7)
--- NOTE | 2024-06-27 09:10 | CTR_ITS ---
PROCEDURE INFORMATION: Exam: CT Abdomen And Pelvis With Contrast Exam date and time: 06/27/2024 9:22 AM Age: 39 years old Clinical indication: Mass, lump, or swelling; Other: Left gluteal abscess; Additional info: Left gluteal abscess x 1 1/2 weeks. TECHNIQUE: Imaging protocol: Computed tomography of the abdomen and pelvis with contrast. Radiation optimization: All CT scans at this facility use at least one of these dose optimization techniques: automated exposure control; mA and/or kV adjustment per patient size (includes targeted exams where dose is matched to clinical indication); or iterative reconstruction. Contrast material: OMNI 350; Contrast volume: 100 ml; Contrast route: INTRAVENOUS (IV); COMPARISON: pelvic limited [id number] 04/30/2021 8:10 AM RADIATION DOSE METRICS: Total DLP (mGy-cm): 1678.83 FINDINGS: Lungs: Bilateral dependent pulmonary atelectasis is demonstrated within the lungs. Liver: Liver demonstrates diffuse moderate to severe hypodensity. Liver appears heterogeneous with irregular border. Possible hepatic parenchymal disease. Small indeterminate incidental hypodensity identified within the liver. Liver lesion measurement and location: Right hepatic hypodensity measures 4 mm on axial image 14. This lesion is not adequately characterized on this study. Possible hepatic cyst. Gallbladder and biliary ducts: Unremarkable. No calcified stones. No ductal dilation. Pancreas: Small indeterminate incidental hypodensity identified within the pancreas. Pancreas hypodense lesion measurement and location: Hypodensity within the pancreas body measures up to 11 mm on axial image 24. This lesion is not adequately characterized on this study. Possible pancreas cyst. The pancreas appears otherwise unremarkable. Spleen: Unremarkable. No splenomegaly. Adrenal glands: Normal. No mass. Kidneys and ureters: Normal bilateral symmetrical renal contrast excretion is demonstrated. No visualized renal hydronephrosis. Stomach and bowel: Unremarkable. No obstruction, ileus or definite inflammation. Appendix: The appendix appears abnormal, compatible with acute appendicitis. Adjacent edema. No evidence for free air or well defined abscess. Multiple proximal appendix stones identified. Largest proximal appendix stone measures up to at least 16 mm on axial image 53. Appendix is distended. The appendix measures up to 15 mm diameter. Appendix wall thickening is demonstrated. Mild adjacent edema. Intraperitoneal space: See Appendix finding. Vasculature: Calcifications in the pelvis, most compatible with phleboliths. Lymph nodes: No enlarged lymph nodes. Urinary bladder: Unremarkable as visualized. Reproductive: Unremarkable as visualized. Bones/joints: No acute bony abnormality. No significant degenerative changes. Soft tissues: Perianal fluid collection compatible with abscess is identified. Adjacent soft tissue edema is present compatible with cellulitis. Perianal abscess measurement and location: Midline to left-sided perianal fluid collection measures up to 5.2 cm, 3.5 cm on axial image 95. This collection measures 4 cm craniocaudal diameter on sagittal image 38. Collection is irregular with lobulated borders and contains hypodense fluid, small air bubbles. There is adjacent severe edema and ill-defined fluid extending into the posterior left gluteal soft tissues. This is within the deep subcutaneous tissues with multiple air bubbles. Other findings: Imaging was performed with the patient in the prone position. CT/CT abdomen pelvis w con* [id number] IMPRESSION: 1. Midline to left-sided Perianal abscess, as described above. Adjacent severe edema, fluid and air bubbles extending into the posterior left gluteal deep subcutaneous tissues. Recommend surgical consultation. 2. Acute appendicitis, as described above. Recommend surgical consultation. 3. Moderate to severe hepatic steatosis. Nonspecific heterogeneous and irregular appearance of the liver. Recommend correlation with liver function tests. 4. Indeterminate liver hypodensity, described above. Consider imaging followup. 5. Indeterminate pancreas hypodensity, described above. Recommend further evaluation with dynamic pre-and postcontrast MRI.
[2024-06-27] MEDS: iohexol 350 mg/mL 500 mL Btl (per mL) IV (09:28)
[2024-06-27] MEDS: VANCOMYCIN ADD-Vantage 1,000 MG in 0.9% NaCl ADD-Vantage 250 ML 250 MG IV ×2 (09:31→17:45)
--- NOTE | 2024-06-27 11:06 | P.HP_ITS ---
Providers/Chief Complaint 2 Primary Care Provider: Jonathon Gil MD Chief Complaint: Poss UTI History of Present Illness Samantha Farmer is a 39 year old female who presented to the emergency department with left gluteal swelling and perianal pain, according to the patient she has been dealing with some association of perianal pain for about 2 weeks, she initially thought these were hemorrhoids. In the emergency department she was noted to have an abscess which was I&D it but due to elevated white count tachycardia and amount of purulence that was drained from the abscess decision was made to obtain a CT scan the CT scan show evidence of residual abscess that is tracking down into the perineum consistent with a perianal abscess. In addition there was an incidental finding of dilatation of the appendix with some thickening concerning for possibility appendicitis but patient is completely asymptomatic from the abdominal standpoint no abdominal pain no other issues. Review of Systems 2 General: Reports: 10 or more systems reviewed and unremarkable except in HPI and below Medications/Allergies Home Medications Medication Instructions Recorded Confirmed Last Taken Type medroxyprogesterone 150 mg/mL 150 mg IM .every 10-12 weeks #1 mL 09/06/23 06/27/24 Unknown Rx intramuscular suspension (Depo-Provera) hydrocortisone 1 %-pramoxine 1 % 1 applic SD QID PRN itching #10 06/24/24 06/27/24 Unknown Rx rectal foam (Proctofoam HC) grams phenylephrine HCl 0.25 % rectal 1 supp SD BID PRN hemorrhoids #12 06/24/24 06/27/24 Unknown Rx suppository (Preparation H (pe)) ea Allergies Allergy/AdvReac Type Severity Reaction Status Date / Time No Known Allergies Allergy Verified 06/27/24 08:28 PFSH Acute 2 PFSH: Medical History No pertinent past medical history Denies diabetes, asthma, hypertension, seizures, DVT/PE PCP: Sees any of the providers at [facility] Surgical History Status post delivery 03/10/2021--primary low transverse delivery [place] Dr. Bowers [place] [facility] [place]. ---> No extensions, double layer closure Family History Brother Diabetes Father Heart disease Hypertension Grandmother Stroke Paternal Denies family history of Colon cancer Ovarian cancer Hyperlipidemia Breast cancer Uterine cancer Thyroid disease Social History Smoking and tobacco/nicotine status: never used tobacco/nicotine Second hand smoke exposure: No Alcohol intake: never Substance/Drug Use: never Vitals/I&O/Wt Last Vital Signs Temp 97.5 F L 06/27/24 08:28 Pulse 113 H 06/27/24 11:03 Resp 17 06/27/24 08:48 BP 142/90 06/27/24 11:03 Pulse Ox 98 06/27/24 11:03 06/26/24 06/27/24 06/27/24 22:59 06:59 14:59 Intake Total 0 / 0 Balance 0 / 0 Weight last 48 hrs Weight 195 lb Physical Exam 2 GI: OTHER: Abdomen is soft nontender nondistended : OTHER: In the left gluteal region there is a surgical incision with packing inside, there is significant edema and erythema of the left gluteal and perianal area. Data 06/27/24 08:45 06/27/24 08:45 A&P Assessment and plan (1) Abscess, perianal: Plan After complete history, physical examination and review of all available clinical data the following is my assessment. Patient will require an exam under anesthesia and incision and drainage of the perianal abscess. I discussed with the patient the findings of the CT scan and after examination I think the likelihood of her having appendicitis extremely low. Will start antibiotics for the perineal abscess that should also take care of any inflammation at the level of the appendix even though patient does not have any symptoms. I discussed all recent benefits of CAT scan and her anesthesia and incision and drainage including the risks of recurring abscess, poor cosmetic outcome, need for additional surgical interventions, injury to adjacent structures, proliferation of the infection requiring additional debridement. Patient shows understanding agrees with plan Attestations 2 Medical Necessity Statement*: Patient will require at least 24 to 48 hours of hospital stay for IV antibiotics Coding Level of Care Code Acute Code for Chg Fwd Diagnoses Abscess, perianal K61.0
[2024-06-27] MEDS: sodium chloride 0.9% 1,000 ML 30 ML IV (11:43)
[2024-06-27] MEDS: scopolamine 1.5 Patch 1 PATCH TRANSDERMA (11:49)
--- NOTE | 2024-06-27 11:52 | P.ANESASSM_ITS ---
Pre-Anesthetic Assessment Height/Weight: Height 1.65 m Weight 88.451 kg Temp Pulse Resp BP Pulse Ox O2 Del Method 98.9 F 112 H 16 139/93 99 Room Air 06/27/24 11:40 06/27/24 11:40 06/27/24 11:40 06/27/24 11:49 06/27/24 11:40 06/27/24 11:40 Operation Date: 06/27/24 12:00 Proposed Procedures p Exam Under Anesthesia(Not Applicable) - Michael Rogers MD s Incision And Drainage Incision And Drainage Perianal Abscess(Not Applicable) - Michael Rogers MD Familial anesthetic complications: None Was Beta Maryam taken within 24 hours: N/A Was Clonidine taken within 24 hours: N/A Last intake: Intake Last Liquid Date 06/27/24 Last Liquid Time 07:00 Last Solid Date 06/26/24 Last Solid Time 20:00 Social No alcohol and No tobacco Exam alert, oriented x 3, clear to auscultation bilaterally and regular rate & rhythm Airway Mallampati: Class I Dentition: full Anesthetic Plan ASA status: 2 Anesthesia: General Risk of > 500 ml blood loss (7ml/kg in children): No Medications/Allergies Home Medications Medication Instructions Recorded Confirmed Last Taken Type medroxyprogesterone 150 mg/mL 150 mg IM .every 10-12 weeks #1 mL 09/06/23 06/27/24 05/17/24 Rx intramuscular suspension (Depo-Provera) hydrocortisone 1 %-pramoxine 1 % 1 applic CO QID PRN itching #10 06/24/24 06/27/24 06/27/24 Rx rectal foam (Proctofoam HC) grams phenylephrine HCl 0.25 % rectal 1 supp CO BID PRN hemorrhoids #12 06/24/24 06/27/24 06/26/24 Rx suppository (Preparation H (pe)) ea Allergies Allergy/AdvReac Type Severity Reaction Status Date / Time No Known Allergies Allergy Verified 06/27/24 08:28 Current Medications Generic Name Dose Route Start Last Admin Trade Name Freq PRN Reason Stop Dose Admin Sodium Chloride 1,000 mls @ 30 mls/hr 06/27/24 11:45 06/27/24 11:43 Sodium Chloride 0.9% IV 06/28/24 11:44 30 mls/hr .Q24H RUSSELL Administration PFSH Anesthesia Medical History No pertinent past medical history Denies diabetes, asthma, hypertension, seizures, DVT/PE PCP: Sees any of the providers at [facility] Surgical History Status post delivery 03/10/2021--primary low transverse delivery by Dr. Bowers at [facility] [place] for unstable lie. ---> No extensions, double layer closure Family History Brother Diabetes Father Heart disease Hypertension Grandmother Stroke Paternal Denies family history of Colon cancer Ovarian cancer Hyperlipidemia Breast cancer Uterine cancer Thyroid disease Social History Smoking and tobacco/nicotine status: never used tobacco/nicotine Second hand smoke exposure: No Alcohol intake: never Substance/Drug Use: never Data Anesthesia 06/27/24 08:45 06/27/24 08:45 Short CBC 06/27/24 Range/Units 08:45 WBC 17.03 H (3.29-11.43) 10^3/uL Hgb 11.30 (11.27-16.99) g/dL Hct 34.0 L (36-47) % MCV 83.7 L (85-98) fl Plt Count 358 (157-399) 10^3/cmm Neut % (Auto) 84.5 % Neut # (Auto) 14.40 H (1.8-7.7) 10^3/uL BMP 06/27/24 08:45 Sodium 136 Potassium 3.1 L Chloride 100 Carbon Dioxide 19 L BUN 11 Creatinine 0.5 Glucose 115 Calcium 9.7 Liver Function 06/27/24 Range/Units 08:45 Total Bilirubin 0.6 (0.15-1.2) mg/dL AST 16 (0-32) U/L ALT 31 (0-33) U/L Alkaline Phosphatase 95 (35-105) U/L Albumin 3.8 (3.5-5.2) g/dL Cardiac Studies: 2 No Data to Display
[2024-06-27 12:09] LABS: OR HCG Qualitative Urine Negative (Negative)
[2024-06-27] MEDS: piperacillin-tazobactam 3.375 GM in sodium chloride 0.9% (plus) 50 ML IV ×2 (12:21→20:51)
--- NOTE | 2024-06-27 14:57 | P.OP_ITS ---
Operative Report Date of procedure: June 27, 2024 Pre-op diagnosis: Perianal abscess Post-op diagnosis: Same Post-op findings: There was a extensive perianal abscess extending to the deep perianal space and superficial all the way to the left gluteus, despite previous I&D in the emergency department as soon as the packing was removed around 150 cc of purulence was immediately evacuated. Some devitalized tissue was noted surrounding the abscess cavity Procedure done: Exam under anesthesia, incision and drainage of perianal abscess Specimens removed/disposition: wound cultures x 2 Surgeon: Michael Rogers MD Zipper Sewing Machine Operator: KIKO OR Staff Estimated blood loss: 10 Complications: none Brief History: This is a 39-year-old female who presented with gluteal pain, was noted to have a gluteal abscess in the ER and was I&D it, excessive drainage was noted and her white count was 17 and therefore she got a CAT scan, CAT scan showed evidence of a very large left gluteal abscess extending into the perianal space on the left. We decided to proceed to the OR for exam under anesthesia and incision and drainage. Procedure: Patient was brought into the OR, general anesthesia was given. The patient was switched to a prone position, the packing inside of the left gluteal incision was removed with immediate evacuation of about 150 cc of purulence was noted, cultures were taken at this time. Buttocks and perianal region was prepped and draped in the usual sterile fashion, timeout was conducted. Digital rectal examination was done, no evidence of fluctuance in the rectal wall, minimal induration on the left lateral wall. I then proceeded to probe the abscess cavity through the incision that was already made, the abscess cavity was very large measuring about 7 x 7 x 5 cm, I decided to extend the incision in the inferomedial direction, total length of incision was 3.5 cm, I then was able to evacuate the remaining purulence and new cultures were taken, the abscess was noted to be tracking very deep into the left perianal space. The abscess cavity was profusely irrigated with saline I then proceeded to debride the abscess cavity wall using my finger and gauze, some devitalized fat was then removed with Metzenbaum scissors. Hemostasis was verified. The abscess cavity was once again irrigated and then I packed the wound with Betadine soaked gauze. Sterile dressing was applied. At the end of the procedure all counts were correct, the patient tolerated well the procedure was transferred to PACU in stable condition.
[2024-06-27] MEDS: ketorolac 30 mg/mL INJ IVP ×2 (15:15→20:51)
[2024-06-27] MEDS: lactated ringers 1,000 ML 150 ML IV ×3 (15:23→22:25)
--- NOTE | 2024-06-27 15:45 | ANE.PACU2 ---
Inpatient post-anesthesia follow up: Airway intact: Yes Vital signs: Temperature 97.8 F Pulse Rate 65 Respiratory Rate 16 Blood Pressure 101/69 Pulse Oximetry 96 Oxygen Delivery Me thod Room Air Oxygen Flow Rate 6 Fraction of Inspir ed Oxygen Hydration adequate: Yes Nausea and vomiting: No Pain level: 1 Mental status: Baseline
--- NOTE | 2024-06-27 16:04 | PHA.VACGOAL ---
Vancomycin Goal - Goal Vancomycin Goal:: 10-15 mg/L Vancomycin Indication:: Other - Therapy Current therapy:: Pip/Tazo Day of therpy:: Day 1 of [] Actual body weight (kg): 195 lb - Data Labs: WBC 17.03 10^3/uL (3.29-11.43) H 06/27/24 08:45 RBC 4.06 10^6/uL (3.85-5.65) 06/27/24 08:45 Hgb 11.30 g/dL (11.27-16.99) 06/27/24 08:45 Hct 34.0 % (36-47) L 06/27/24 08:45 MCV 83.7 fl (85-98) L 06/27/24 08:45 MCH 27.8 pg (27-33) 06/27/24 08:45 MCHC 33.2 g/dL (30-55) 06/27/24 08:45 RDW 13.9 % (12.1-15.1) 06/27/24 08:45 Sodium 136 mmol/L (136-145) 06/27/24 08:45 Potassium 3.1 mmol/L (3.5-5.1) L 06/27/24 08:45 Chloride 100 mmol/L (98-107) 06/27/24 08:45 Carbon Dioxide 19 mmol/L (22-29) L 06/27/24 08:45 Anion Gap 20.1 (5-19) H 06/27/24 08:45 BUN 11 mg/dL (6-20) 06/27/24 08:45 Creatinine 0.5 mg/dL (0.5-0.9) 06/27/24 08:45 GFR Calculation 138.1 mL/min (90-130) H 06/27/24 08:45 Last dialysis session:: N/A Treatment plan:: new consult Regimen:: INITIAL DOSE 1000 MG Q8H Follow up:: WILL MONITOR AND FOLLOW UP DAILY
[2024-06-27] MEDS: acetaminophen 325 mg Tablet 650 MG PO ×2 (16:43→22:32)
[2024-06-27] MEDS: pantoprazole 40 mg SDV IVP (16:44)
[2024-06-27] MEDS: docusate sodium 100 mg Capsule PO (17:45)
[2024-06-28] VITALS (10 sets, daily range): BP systolic 90–115; BP diastolic 64–75; PULSE 65–101; RESP 15–21; TEMP 36.3–36.7; O2SAT 94–97
[2024-06-28] MEDS: VANCOMYCIN ADD-Vantage 1,000 MG in 0.9% NaCl ADD-Vantage 250 ML 250 MG IV ×2 (01:28→09:46)
[2024-06-28] MEDS: ketorolac 30 mg/mL INJ IVP ×4 (03:51→21:28)
[2024-06-28] MEDS: acetaminophen 325 mg Tablet 650 MG PO ×4 (03:51→21:27)
[2024-06-28] MEDS: piperacillin-tazobactam 3.375 GM in sodium chloride 0.9% (plus) 50 ML IV ×3 (03:51→20:40)
[2024-06-28] MEDS: lactated ringers 1,000 ML 150 ML IV (05:06)
[2024-06-28 05:10] LABS: Hematocrit 30.1 % (36-47); Mean Corpuscular HGB Conc 32.2 g/dL (30-55); Mean Corpuscular Hemoglobin 28.6 pg (27-33); Mean Corpuscular Volume 88.8 fl (85-98); Mean Platelet Volume 8.8 fL (7.4-10.4); Platelet Count 237 10^3/cmm (157-399); Red Blood Count 3.39 10^6/uL (3.85-5.65); Red Cell Distribution Width 14.4 % (12.1-15.1); White Blood Count 14.34 10^3/uL (3.29-11.43)
[2024-06-28 05:35] LABS: Anion Gap 17.6 (5-19); Blood Urea Nitrogen 17 mg/dL (6-20); Calcium 8.5 mg/dL (8.5-10.5); Carbon Dioxide 19 mmol/L (22-29); Chloride 110 mmol/L (98-107); Creatinine Clr Calc Pharmacy 113.4208; Glomerular Filtration Rate 93.6 mL/min (90-130); Glucose 159 mg/dL (65-115); Magnesium 1.9 mg/dL (1.7-2.3); Osmolality Calculated 301 mOsm/kg (285-295); Phosphorus 3.6 mg/dL (2.5-4.5); Potassium 3.6 mmol/L (3.5-5.1); Sodium 143 mmol/L (136-145)
[2024-06-28 05:37] LABS: Slide Review Slide Review Perform
[2024-06-28 05:39] LABS: Absolute Segmented Neutrophil 8.5 10/cmm (1.6-7.1); Band Neutrophils Absolute 5.3 10^3/cmm (0.0-1.2); Lymphocytes 4 %; Segmented Neutrophils 59 %; Total Cells Counted 100 (0-100)
[2024-06-28 05:41] LABS: Absolute Neutrophil 13.8 10^3/cmm (1.4-6.5); Eosinophils 0 %; Lymphocytes Absolute 0.6 10^3/cmm (1.2-3.4); Platelet Estimate Normal (Normal)
[2024-06-28] MEDS: HYDROmorphone 1 mg/mL INJ 1 mL 0.5 MG IVP (08:27)
--- NOTE | 2024-06-28 09:32 | P.PN_ITS ---
Subjective 2 Subjective: Doing well this morning, no significant pain, tolerating diet. No more chills. Vitals/I&O/Wt Last Vital Signs Temp 97.8 F 06/28/24 08:00 Pulse 65 06/28/24 08:00 Resp 16 06/28/24 08:27 BP 101/69 06/28/24 08:00 Pulse Ox 96 06/28/24 08:27 O2 Del Method Room Air 06/28/24 08:00 O2 Flow Rate 6 06/27/24 15:20 06/27/24 06/28/24 06/28/24 22:59 06:59 14:59 Intake Total 1826.5 / 2126.5 1660 / 3786.5 222 / 222 Output Total 5 / 5 Balance 1821.5 / 2121.5 1660 / 3781.5 222 / 222 Weight last 48 hrs Weight 174 lb 14.4 oz Weight 195 lb Weight 195 lb Physical Exam 2 GI: OTHER: Benign abdominal exam abdomen soft and nontender. In the left gluteal region packing was removed the cavity is healthy no evidence of residual purulence packing was replaced. Data 06/28/24 04:48 06/28/24 04:48 Micro: Microbiology 06/27/24 18:35 Blood Culture - Preliminary Blood SPECIMEN COLLECTED 06/27/24 18:35 Blood Culture - Preliminary Blood SPECIMEN COLLECTED 06/27/24 09:10 Gram Stain - Final Buttock A&P Assessment and plan (1) Abscess, perianal: (2) Sepsis: Plan Patient is showing very good progression after incision and drainage and debridement of left perianal abscess. Patient will require to stay in the hospital for additional 1 to 2 days to get IV antibiotics and then she will be able to transition to the outpatient setting. White count has trended down from 17-14. Will continue current management. Attestations 2 Medical Necessity Statement*: Patient will require 24 to 48 hours of her hospital stay for antibiotic management after perianal abscess and sepsis Coding Level of Care Code 41807 Diagnoses Abscess, perianal K61.0 Sepsis A41.9
[2024-06-28] MEDS: docusate sodium 100 mg Capsule PO ×2 (09:37→17:26)
[2024-06-28 10:01] LABS: Acinetobacter baumannii Not Detected (NOT DETECT); Bacteroides fragilis Not Detected (NOT DETECT); CTX-M Not Detected (NOT DETECT); Citrobacter Not Detected (NOT DETECT); Cronobacter sakazakii Not Detected (NOT DETECT); Enterobacter cloacae complex Not Detected (NOT DETECT); Enterobacter non cloacae Not Detected (NOT DETECT); Fusobacterium necrophorum Not Detected (NOT DETECT); Fusobacterium nucleatum Not Detected (NOT DETECT); Haemophilus influenzae Not Detected (NOT DETECT); IMP Resistance Gene Not Detected (NOT DETECT); KPC Resistance Gene Not Detected (NOT DETECT); Klebsiella pneumoniae group Not Detected (NOT DETECT); Morganella morganii Not Detected (NOT DETECT); NDM Resistance Gene Not Detected (NOT DETECT); Neisseria meningitidis Not Detected (NOT DETECT); OXA Resistance Gene Not Detected (NOT DETECT); Pan Candida Not Detected (NOT DETECT); Pan Gram-Positive Not Detected (NOT DETECT); Proteus mirabilis Not Detected (NOT DETECT); Pseudomonas aeruginosa Not Detected (NOT DETECT); Salmonella Not Detected (NOT DETECT); Serratia Not Detected (NOT DETECT); Serratia marcescens Not Detected (NOT DETECT); Stenotrophomonas maltophilia Not Detected (NOT DETECT); VIM Resistance Gene Not Detected (NOT DETECT)
[2024-06-28 16:15] LABS: Vancomycin Trough 24.8 ug/mL (10-15)
[2024-06-28] MEDS: pantoprazole 40 mg SDV IVP (16:40)
[2024-06-29] VITALS (21 sets, daily range): BP systolic 98–131; BP diastolic 58–85; PULSE 82–112; RESP 16–20; TEMP 36.3–38; O2SAT 90–100
[2024-06-29] MEDS: VANCOMYCIN ADD-Vantage 1,000 MG in 0.9% NaCl ADD-Vantage 250 ML 250 MG IV (01:00)
[2024-06-29] MEDS: acetaminophen 325 mg Tablet 650 MG PO ×3 (03:28→22:11)
[2024-06-29] MEDS: ketorolac 30 mg/mL INJ IVP (03:28)
[2024-06-29] MEDS: piperacillin-tazobactam 3.375 GM in sodium chloride 0.9% (plus) 50 ML IV ×3 (04:24→22:12)
[2024-06-29 05:30] LABS: Basophils % 0.3 %; Eosinophils # 0.1 10^3/uL (0.0-0.8); Eosinophils % 1.1 %; Lymphocytes % 8.2 %; Mean Corpuscular Volume 87.5 fl (85-98); Mean Platelet Volume 9.1 fL (7.4-10.4); Monocytes # 0.5 10^3/uL (0.2-0.9); Monocytes % 3.7 %; Neutrophils # 10.73 10^3/uL (1.8-7.7); Neutrophils % 85.8 %; Nucleated Red Blood Cells % 0 %; Platelet Count 262 10^3/cmm (157-399); Red Blood Count 3.43 10^6/uL (3.85-5.65); Red Cell Distribution Width 14.5 % (12.1-15.1)
[2024-06-29 05:52] LABS: Anion Gap 13.1 (5-19); Blood Urea Nitrogen 28 mg/dL (6-20); Calcium 8.6 mg/dL (8.5-10.5); Carbon Dioxide 21 mmol/L (22-29); Chloride 105 mmol/L (98-107); Creatinine Clr Calc Pharmacy 47.3583; Glomerular Filtration Rate 33.6 mL/min (90-130); Glucose 96 mg/dL (65-115); Magnesium 2.2 mg/dL (1.7-2.3); Osmolality Calculated 287 mOsm/kg (285-295); Phosphorus 3.8 mg/dL (2.5-4.5); Potassium 3.1 mmol/L (3.5-5.1); Sodium 136 mmol/L (136-145)
[2024-06-29] MEDS: lactated ringers 1,000 ML 75 ML IV (06:19)
[2024-06-29] MEDS: linezolid premix 600 MG/300 ML PREMIX 300 MG IV (08:28)
[2024-06-29] MEDS: docusate sodium 100 mg Capsule PO (08:29)
[2024-06-29 08:57] LABS: C Reactive Protein 139.3 mg/L (0.0-4.9); Creatine Phosphokinase 181 U/L (26-192); Procalcitonin 14.36 ng/mL (0-0.5)
--- NOTE | 2024-06-29 09:09 | PM.PN ---
Subjective Subjective: Postoperative day 2 status post I&D of large perianal abscess, patient has been stable overnight has tolerated diet has had a bowel movement. Still complains some pain in the perirectal area. Vital signs have been stable. Vitals/I&O/Wt Last Vital Signs Temp 97.4 F L 06/29/24 07:43 Pulse 89 06/29/24 07:43 Resp 17 06/29/24 07:43 BP 104/73 06/29/24 07:43 Pulse Ox 96 06/29/24 07:43 O2 Del Method Room Air 06/29/24 07:43 O2 Flow Rate 6 06/27/24 15:20 06/28/24 06/29/24 06/29/24 22:59 06:59 14:59 Intake Total 550 / 1182 300 / 1482 50 / 50 Balance 550 / 1182 300 / 1482 50 / 50 Weight last 48 hrs Weight 180 lb Weight 174 lb 14.4 oz Weight 195 lb Physical Exam GI: OTHER: Family soft nontender nondistended : OTHER: At the level of the left gluteal region surgical incision was noted appears healthy packing was removed and replaced no evidence of purulence Data 06/29/24 05:03 06/29/24 05:03 Micro: Microbiology 06/27/24 18:35 Blood Culture - Preliminary Blood 06/27/24 18:35 Blood Culture - Preliminary Blood Escherichia coli 06/27/24 09:10 Gram Stain - Final Buttock Wound Culture - Preliminary 06/27/24 14:30 Gram Stain - Final Buttock Anaerobic Culture - Preliminary 06/27/24 14:35 Gram Stain - Final Buttock Anaerobic Culture - Preliminary A&P Assessment and plan (1) Abscess, perianal: (2) Sepsis: (3) Acute kidney injury: Plan Patient has a good progression after incision of drainage of a large perianal abscess, white count has trended down to 12 today, her vital signs have been stable, blood cultures taken the day of admission are positive for E. coli susceptibilities are pending. The creatinine has doubled in the last 24 hours now is 1.7 consistent with acute kidney injury, I we will discontinue Toradol and switch vancomycin to linezolid and I will also obtain a medical consultation for evaluation of JONATHAN and due to bacteremia. The plan will be to continue antibiotic therapy, repeat blood cultures tomorrow and we will plan on discharge based on susceptibilities and recommendations per medical team, I have restarted her IV fluids for today due to this elevation in the creatinine. Attestations Medical Necessity Statement*: Patient will require 24 to 48 hours of hospital stay for management of perineal abscess, sepsis with bacteremia and acute kidney injury Coding Level of Care Code Acute Code for [facility] Diagnoses Abscess, perianal K61.0 Sepsis A41.9 Acute kidney injury N17.9
[2024-06-29 09:51] LABS: Bilirubin Urine Negative (Negative); Blood Urine 1+ (Negative); Glucose Urine UA Negative (Normal); Ketones Urine Negative (Negative); Leukocyte Esterase Urine Trace (Negative); Nitrate Urine Negative (Negative); Protein Urine Negative (Negative); Specific Gravity, Urine 1.017 (1.005-1.030); Urine Appearance Cloudy (CLEAR); Urine Color Yellow (Yellow)
[2024-06-29 09:56] LABS: Add Urine Microscopic? YES; Bacteria Urine 3+ /hpf; Hyaline Casts Urine 0.81 /lpf; WBC Urine 0-5 /hpf (0-5)
--- NOTE | 2024-06-29 11:06 | US_ITS ---
WS: [id number] RENAL ULTRASOUND HISTORY: debbi COMPARISON: None available. TECHNIQUE: 2-D and color Doppler imaging of the kidney submitted. Right kidney: 12.5 cm x 5.6 cm x 4.6 cm. Cortex: 1.0 cm Normal echogenicity with no hydronephrosis or mass. Left kidney: 11.1 cm x 6.2 cm x 5.6 cm. Cortex: 0.9 cm Normal echogenicity with no hydronephrosis or mass. Aorta: Normal. Urinary Bladder: Normal distention. US/US renal BI* [id number] IMPRESSION: Normal renal ultrasound.
--- NOTE | 2024-06-29 11:06 | CTR_ITS ---
PROCEDURE INFORMATION: Exam: CT Abdomen And Pelvis Without Contrast Exam date and time: 06/29/2024 11:20 AM Age: 39 years old Clinical indication: Abdominal pain; Localized; Right lower quadrant (rlq); Prior surgery; Surgery date: 3-7 days post-operative; Surgery type: Colon; Additional info: Abdominal pain, rlq TECHNIQUE: Imaging protocol: Computed tomography of the abdomen and pelvis without contrast. Radiation optimization: All CT scans at this facility use at least one of these dose optimization techniques: automated exposure control; mA and/or kV adjustment per patient size (includes targeted exams where dose is matched to clinical indication); or iterative reconstruction. COMPARISON: CT abdomen pelvis w con* [id number] 06/27/2024 9:22 AM RADIATION DOSE METRICS: Total DLP (mGy-cm): 937.47 FINDINGS: Lungs: There is atelectasis at the lung bases. Pleural spaces: There are small bilateral pleural effusions. Liver: There is diffuse fatty infiltration of the liver. The liver is otherwise normal. Gallbladder and biliary ducts: There is layering hyperdensity within the gallbladder. This could reflect vicarious excretion of contrast which is layering within the gallbladder or possibly sludge. No pericholecystic inflammatory change is identified. Pancreas: Normal. No ductal dilation. Spleen: Normal. No splenomegaly. Adrenal glands: Normal. No mass. Kidneys and ureters: Small nonobstructing renal calculus is noted on the left. The kidneys otherwise have a normal noncontrast appearance. Stomach and bowel: Unremarkable. No obstruction. No mucosal thickening. Appendix: There is dilatation of the appendix with adjacent wall thickening and periappendiceal fat stranding compatible with appendicitis. Intraperitoneal space: No free air is identified. Trace fluid is seen within the right paracolic gutter. Vasculature: Unremarkable. No abdominal aortic aneurysm. Lymph nodes: Unremarkable. No enlarged lymph nodes. Urinary bladder: Unremarkable as visualized. Reproductive: Small calcified lesion involving the posterior uterus likely represents a small calcified fibroid. No abnormalities are otherwise noted with regards to the reproductive organs. Bones/joints: Unremarkable. No acute fracture. Soft tissues: There is a small fat filled periumbilical hernia. Area of abscess within the left gluteal fold seen on prior exam is not included on today's exam. Tiny focus of air and fat stranding is present along the superior margin of abscess seen on prior exam. CT/CT abdomen pelvis wo con [id number] IMPRESSION: 1. Appendicitis. 2. Trace free fluid within the right paracolic gutter. 3. Please see above comments for additional details.
--- NOTE | 2024-06-29 12:19 | PM.CONSULT ---
Providers/Reason For Consult Consulting Physician/Specialty*: General surgery Reason for Consult*: Right lower quadrant pain, JONATHAN, bacteremia Attending Physician: Michael Rogers MD Primary Care Provider: Jonathon Gil MD History of Present Illness History of Present Illness Samantha Farmer is a 39 year old female no pertinent past medical history, who presents to [facility] for left gluteal swelling, perianal pain for the last week or so she initially thought it was related to hemorrhoids, but continued to have a lot more pain in that location, with drainage,. Patient was seen by general surgery, for perianal abscess, status post incision and drainage. Hospitalist team was consulted due to E. coli bacteremia, and JONATHAN creatinine 1.7. Patient was seen this morning, she was afebrile overnight, is on room air, normotensive, her complaint this morning is right lower quadrant abdominal pain, feeling nauseous, poor appetite, she did have a bowel movement, denies any bloody or black stools. Does report chills, no fevers, no lightheadedness, no dizziness. He tells me that her right lower quadrant pain is persisting despite Tylenol. She denies a history of kidney disease, but does report a history of UTIs, she thinks she had burning with urination when she came in. Denies a history of pyelonephritis. Denies any flank pain. Review of Systems Const: Reports: chills, fatigue and malaise; Denies: fever(s) Card: Denies: chest pain Resp: Denies: dyspnea GI: Reports: abdominal pain and nausea : Denies: flank pain Neuro: Denies: headache(s) Medications/Allergies Home Medications Medication Instructions Recorded Confirmed Last Taken Type medroxyprogesterone 150 mg/mL 150 mg IM .every 10-12 weeks #1 mL 09/06/23 06/27/24 05/17/24 Rx intramuscular suspension (Depo-Provera) hydrocortisone 1 %-pramoxine 1 % 1 applic TN QID PRN itching #10 06/24/24 06/27/24 06/27/24 Rx rectal foam (Proctofoam HC) grams phenylephrine HCl 0.25 % rectal 1 supp TN BID PRN hemorrhoids #12 06/24/24 06/27/24 06/26/24 Rx suppository (Preparation H (pe)) ea Allergies Allergy/AdvReac Type Severity Reaction Status Date / Time No Known Allergies Allergy Verified 06/27/24 08:28 Current Medications Generic Name Dose Route Start Last Admin Trade Name Ritesh PRN Reason Stop Dose Admin Acetaminophen 650 mg 06/27/24 15:59 06/29/24 09:51 Acetaminophen 325 Mg Tablet PO 650 mg Q6H RUSSELL Administration Docusate Sodium 100 mg 06/27/24 18:00 06/29/24 08:29 Docusate Sodium 100 Mg Capsule PO 100 mg BID RUSSELL Administration Piperacillin Sod/Tazobactam 50 mls @ 12.5 mls/hr 06/27/24 20:30 06/29/24 08:29 Sod 3.375 gm/ Sodium Chloride IV Infused Q8H RUSSELL Infusion Protocol Lactated Ringer's 1,000 mls @ 75 mls/hr 06/29/24 06:15 06/29/24 06:19 Lactated Ringers IV 75 mls/hr .[id number] RUSSELL Administration Linezolid 600 mg in 300 mls @ 300 mls/hr 06/29/24 07:15 06/29/24 10:09 Zyvox Premix IV Infused Q12H RUSSELL Infusion Protocol Pantoprazole Sodium 40 mg 06/27/24 15:59 06/28/24 16:40 Pantoprazole 40 Mg Sdv IVP 40 mg Q24H RUSSELL Administration PFSH Acute PFSH: Medical History No pertinent past medical history Denies diabetes, asthma, hypertension, seizures, DVT/PE PCP: Sees any of the providers at [facility] Surgical History Status post delivery 03/10/2021--primary low transverse delivery by Dr. Bowers at [facility] for unstable lie. ---> No extensions, double layer closure Family History Brother Diabetes Father Heart disease Hypertension Grandmother Stroke Paternal Denies family history of Colon cancer Ovarian cancer Hyperlipidemia Breast cancer Uterine cancer Thyroid disease Social History Smoking and tobacco/nicotine status: never used tobacco/nicotine Second hand smoke exposure: No Alcohol intake: never Substance/Drug Use: never Vitals/I&O/Wt Last Vital Signs Temp 98 F 06/29/24 12:10 Pulse 92 06/29/24 12:10 Resp 17 06/29/24 12:10 BP 113/75 06/29/24 12:10 Pulse Ox 98 06/29/24 12:10 O2 Del Method Room Air 06/29/24 12:10 O2 Flow Rate 6 06/27/24 15:20 06/28/24 06/29/24 06/29/24 22:59 06:59 14:59 Intake Total 550 / 1182 300 / 1482 590 / 590 Balance 550 / 1182 300 / 1482 590 / 590 Weight last 48 hrs Weight 81.647 kg Weight 79.333 kg Weight 88.451 kg Physical Exam Const: COMMON NORMALS: no acute distress and patient oriented x3 HENMT: COMMON NORMALS: normocephalic HEAD & SCALP: normocephalic Resp: COMMON NORMALS: normal respiratory effort, No retractions, No use of accessory muscles and clear to auscultation bilaterally AUSCULTATION: clear to auscultation bilaterally Cardio: COMMON NORMALS: regular rate, regular rhythm, S1 normal heart sound present and S2 normal heart sound present RATE: regular rate RHYTHM: regular rhythm HEART SOUNDS: S1 normal heart sound present and S2 normal heart sound present GI: OTHER: Abdomen soft, slightly distended, good bowel sounds in all 4 quadrants, has right lower quadrant tenderness to palpation, no guarding, rebound, rigidity Extremity: COMMON NORMALS: no calf tenderness and no pedal edema Neuro: COMMON NORMALS: patient oriented x3 OTHER: Blood oriented x 3, following all commands, no focal neurologic deficits, cranial nerves II to XII grossly intact, moving bilateral upper and lower extremities Psych: COMMON NORMALS: mental status grossly normal Skin: NARRATIVE SKIN EXAM: Left-sided perianal abscess, currently with abdominal pad/surgical dressing on top no significant surrounding erythema Data 06/29/24 05:03 06/29/24 05:03 Micro: Microbiology 06/27/24 18:35 Blood Culture - Preliminary Blood 06/27/24 18:35 Blood Culture - Preliminary Blood Escherichia coli 06/27/24 09:10 Gram Stain - Final Buttock Wound Culture - Preliminary 06/27/24 14:30 Gram Stain - Final Buttock Anaerobic Culture - Preliminary 06/27/24 14:35 Gram Stain - Final Buttock Anaerobic Culture - Preliminary A&P Assessment and plan (1) E. coli bacteremia: (2) Abscess, perianal: (3) Fibroid uterus: (4) Acute appendicitis: (5) Sepsis: Plan Left-sided perianal abscess CT/CT abdomen pelvis w con* [id number] IMPRESSION: 1. Midline to left-sided Perianal abscess, as described above. Adjacent severe edema, fluid and air bubbles extending into the posterior left gluteal deep subcutaneous tissues. Recommend surgical consultation. -Patient's status post incision and drainage, in the emergency room -Status post incision and drainage in the OR by Dr. Jaylene Romo, measuring 7 x 7 x 5 cm, Plan ? Abscess cultures so far no growth -Continue IV antibiotics, switch to Zyvox, Zosyn -Continue wound care -So far no growth on culture Right lower quadrant pain -CT scan this morning shows Liver: There is diffuse fatty infiltration of the liver. The liver is otherwise normal. Gallbladder and biliary ducts: There is layering hyperdensity within the gallbladder. This could reflect vicarious excretion of contrast which is layering within the gallbladder or possibly sludge. No pericholecystic inflammatory change is identified. Pancreas: Normal. No ductal dilation. Spleen: Normal. No splenomegaly. Adrenal glands: Normal. No mass. Kidneys and ureters: Small nonobstructing renal calculus is noted on the left. The kidneys otherwise have a normal noncontrast appearance. Stomach and bowel: Unremarkable. No obstruction. No mucosal thickening. Appendix: There is dilatation of the appendix with adjacent wall thickening and periappendiceal fat stranding compatible with appendicitis. Plan -Spoke to general surgery, plan on surgical intervention for appendicitis today -Currently n.p.o. -Continue IV antibiotics, on Zyvox and Zosyn E. coli bacteremia -CRP 139.3, Pro-Evert 14.36 -Source -Left-sided perianal abscess -Possible UTI given patient's symptoms of dysuria -Other sources could be appendicitis -Await sensitivity, continue Zosyn -Repeat blood cultures pending Acute kidney injury -Likely multifactorial from sepsis, bacteremia, contrast-induced nephropathy, dehydration -Continue lactated Ringer's at 125 cc an hour -Ultrasound -Monitor urine output closely -Replace potassium Full code Lovenox for DVT prophylaxis tonight Spoke to patient, spoke to patient's , spoke to general surgery, spoke to nursing staff Consult Attestations Medical Necessity Statement: Patient requires hospitalization for left-sided perianal abscess, right lower quadrant pain concerning for acute appendicitis, E. coli bacteremia came JONATHAN Diagnoses E. coli bacteremia R78.81; B96.20 Abscess, perianal K61.0 Fibroid uterus D25.9 Acute appendicitis K35.80 Sepsis A41.9
--- NOTE | 2024-06-29 12:25 | P.MISC_ITS ---
Miscellaneous Note Purpose of Documentation: Update on patient care Note: As of this afternoon patient has developed some slight pain on the right flank right lower quadrant, since there was imaging findings consistent with appendicitis we decided to repeat imaging and it shows evidence of acute appendicitis with no perforation but increased amount of periappendiceal fluid, this despite the fact that the patient has been on IV antibiotics over the last 48 hours. At this point I think a laparoscopic appendectomy is indicated, to achieve complete source control. I have discussed with the patient all risk and benefits of the operation including the risks of bleeding, infection, intra- abdominal abscess, injury to surrounding structures, need for hemicolectomy, hernia, sepsis, . Patient shows understanding she agrees to proceed to the operating room for the proposed procedure. She has been made n.p.o., last time she had a meal was around noon, she drank some soup therefore we will schedule appendectomy for 6 PM.
[2024-06-29 14:36] LABS: Alanine Aminotransferase 33 U/L (0-33); Albumin Level 2.7 g/dL (3.5-5.2); Alkaline Phosphatase 81 U/L (35-105); Anion Gap 14.2 (5-19); Aspartate Amino Transferase 28 U/L (0-32); Blood Urea Nitrogen 25 mg/dL (6-20); Calcium 8.7 mg/dL (8.5-10.5); Carbon Dioxide 21 mmol/L (22-29); Chloride 106 mmol/L (98-107); Creatinine Clr Calc Pharmacy 44.7273; Globulin 2.6 g/dL (1.3-4.6); Glomerular Filtration Rate 31.5 mL/min (90-130); Glucose 84 mg/dL (65-115); Osmolality Calculated 290 mOsm/kg (285-295); Potassium 3.2 mmol/L (3.5-5.1); Sodium 138 mmol/L (136-145); Total Bilirubin 0.4 mg/dL (0.15-1.2); Total Protein 5.3 g/dL (6.6-8.7)
[2024-06-29] MEDS: ondansetron 2 mg/ML SDV 2 mL 4 MG IVP (15:44)
[2024-06-29] MEDS: pantoprazole 40 mg SDV IVP (16:28)
[2024-06-29] MEDS: famotidine 20 mg/2 mL INJ IVP (17:43)
--- NOTE | 2024-06-29 17:45 | ANES.PAUD2 ---
Pre-Anesthetic Update Pre-Anesthetic Assessment: Date of Surgery/Procedure: 06/29/24 Proposed Procedure: Operation Date: 06/27/24 12:00 Proposed Procedures p Exam Under Anesthesia(Not Applicable) - Michael Rogers MD s Incision And Drainage Incision And Drainage Perianal Abscess(Not Applicable) - Michael Rogers MD Operation Date: 06/29/24 18:00 Proposed Procedures p Laparoscopic Appendectomy(Not Applicable) - Michael Rogers MD Changes from Pre-Anesthetic Assessment: Patient just had a perirectal abscess drained under GA without issues. CT scan repeated today showing acute appendicitis. Blood cultures repeated. Labs reviewed, WBC 12. Tachycardic currently, febrile Patient had vegetable soup at noon today. Plan on RSI. Preop Zofran and Pepcid given Patient consents to GETA Last Intake: Intake Last Liquid Date 06/27/24 Last Liquid Time 07:00 Last Solid Date 06/26/24 Last Solid Time 20:00 Labs Last 48hrs: Short CBC 06/28/24 06/29/24 Range/Units 04:48 05:03 WBC 14.34 H 12.50 H (3.29-11.43) 10^ 3/uL Hgb 9.70 L 9.60 L (11.27-16.99) g/ dL Hct 30.1 L 30.0 L (36-47) % MCV 88.8 D 87.5 (85-98) fl Plt Count 237 D 262 (157-399) 10^3/c mm Neut % (Auto) 85.8 % Neut # (Auto) 10.73 H (1.8-7.7) 10^3/u L BMP 06/28/24 06/29/24 06/29/24 04:48 05:03 14:02 Sodium 143 136 138 Potassium 3.6 3.1 L 3.2 L Chloride 110 H 105 106 Carbon Dioxide 19 L 21 L 21 L BUN 17 28 H 25 H Creatinine 0.7 1.7 H 1.8 H Glucose 159 H 96 84 Calcium 8.5 8.6 8.7 Cardiac Enzymes 06/29/24 Range/Units 05:03 Creatine Kinase 181 (26-192) U/L Liver Function 06/29/24 Range/Units 14:02 Total Bilirubin 0.4 (0.15-1.2) mg/dL AST 28 (0-32) U/L ALT 33 (0-33) U/L Alkaline Phosphata se 81 (35-105) U/L Albumin 2.7 L (3.5-5.2) g/dL Urine 06/29/24 Range/Units 09:40 Urine Color Yellow (Yellow) Urine Appearance Cloudy A (CLEAR) Urine pH 5.0 (5-7) Ur Specific Gravit y 1.017 (1.005-1.030) Urine Protein Negative (Negative) Urine Glucose (UA) Negative (Normal) Urine Ketones Negative (Negative) Urine Nitrate Negative (Negative) Urine Bilirubin Negative (Negative) Ur Leukocyte Livia ase Trace A (Negative) Urine RBC 6-10 (0-2) /hpf Urine WBC 0-5 (0-5) /hpf Coags 06/29/24 05:03 C-Reactive Protein 139.3 H Vitals: Temperature 100.4 F H 06/29/24 17:38 Temperature Source Temporal Artery S can 06/29/24 17:38 Pulse Rate 112 H 06/29/24 17:38 Pulse Rhythm Regular 06/27/24 16:01 Pulse Strength 3+ Normal 06/27/24 16:01 Respiratory Rate 20 H 06/29/24 17:38 Respiratory Effort Spontaneous, Non- Labored 06/28/24 08:27 Respiratory Depth Normal 06/29/24 08:00 Respiratory Patter n Normal 06/28/24 08:27 Blood Pressure 131/85 06/29/24 17:38 Blood Pressure Rubina n 100 06/29/24 17:38 Blood Pressure Pos ition Semi Fowlers 06/28/24 04:00 Pulse Oximetry 98 06/29/24 17:38 Oxygen Delivery Me thod Room Air 06/29/24 17:38 Oxygen Flow Rate 6 06/27/24 15:20 Sepsis Recent Feve r Within 48 Hours No 06/27/24 08:28 Cardiac Studies: No Data to Display
[2024-06-29] MEDS: lidocaine-epi 1% 20 mL INJ (18:28)
[2024-06-29] MEDS: BUPivacaine 0.25% INJ 10 mL INJECTION (18:28)
--- NOTE | 2024-06-29 20:15 | PM.OP ---
Operative Report Date of procedure: June 29, 2024 Pre-op diagnosis: Acute appendicitis Post-op diagnosis: Rupture acute appendicitis with peritonitis Post-op findings: There was a inflamed appendix with a perforation at the level of the deep, the appendix was retrocecal, laying on the right paracolic gutter with the tip ending above the hepatic flexure behind the liver. There was some phlegmon between the liver and omentum and appendix on the right upper quadrant, there was purulent free fluid in the pelvis right paracolic gutter and perihepatic space Procedure done: Laparoscopic appendectomy Specimens removed/disposition: Appendix Surgeon: Michael Rogers MD Preschool Lead Teacher: KIKO OR STaff Estimated blood loss: 5 Complications: none Brief History: This is a 39-year-old female who presents to the hospital with a large very anal abscess and sepsis. Initial CAT scan upon presentation showed evidence of possible acute appendicitis but at the time patient did not have significant abdominal pain or symptoms, taking consideration presentation with sepsis for perianal abscess we decided to proceed with drainage of the Finn anal abscess and antibiotic management for any possible acute appendicitis. The last 24 hours patient has developed more abdominal pain in the right side of the abdomen and therefore we decided to repeat a CT scan of the abdomen and pelvis today. CT scan was compatible with acute appendicitis there was evidence of some free fluid in the right paracolic gutter, with this findings and taking consideration the patient has already been 2 days receiving antibiotics I think the optimal solution will be to proceed to the operating room for a laparoscopic appendectomy for source control. I discussed with patient all recent benefits on bedside to proceed. Procedure: Patient was brought into the OR, she was placed in a supine position. General anesthesia was given. The abdomen was prepped and draped in the usual sterile fashion. Timeout was conducted. The abdomen was accessed via Optiview 5 mm trocar in the left upper quadrant, pneumoperitoneum was obtained initial laparoscopy showed no evidence of visceral injury during entry. Additional 12 mm trocar was placed in the suprapubic location under direct visualization, and another 5 mm trocar was placed in the left lower quadrant under direct visualization. Upon initial inspection of the abdomen purulence was noted in the right paracolic gutter and in the pelvis, purulent fluid was aspirated and sent for cultures. Upon initial manipulation of the cecum it was apparent that the appendix was retrocecal and traveling along the right paracolic gutter to the level of the liver. We needed to place the patient in a steep reverse Trendelenburg position with the left side down in order to improve exposure. Due to the unusual anatomic location of the appendix I had to place another 5 mm trocar in the right lower quadrant to allow for better access to the appendix. There was a inflammatory phlegmon between the liver the omentum and the tip of the appendix that was opened up using blunt dissection within the Kitners. I was able to visualize the tip of the appendix that was in the right perihepatic space, there was a distal perforation at the level of the tube with possible appendicolith, the panniculus was grabbed and pulled out of the abdominal cavity. I then with careful blunt dissection was able to mobilize the appendix from the inflammatory adhesions to the ascending colon and hepatic flexure. I then with careful use of LigaSure was able to take down the mesoappendix starting at the tube and troponin all the way down to the base of the appendix. The base of the appendix appeared to be healthy, I then transected the appendix at this level using a 45 mm blue load Endo RINKU stapler. The appendix was retrieved via the supraumbilical trocar in an Endo Catch bag. I evaluated the appendiceal bed and the staple line and it was hemostatic, the staple line appeared healthy. I then profusely irrigated the abdomen and the perihepatic space and aspirated all purulent fluid that was identified. Due to the fact that the patient presented with a perforated appendicitis I decided to leave a drain, using the right lower quadrant trocar site I inserted the channel drain into the abdomen, the drain was placed in the right perihepatic space and right paracolic gutter. The drain was fixed with the skin with #2-0 nylon. The suprapubic trocar site was closed under direct visualization as a Norman-Laurence suture passer and a #0 Vicryl. The left lower quadrant trocar was removed under direct visualization the left upper quadrant trocar was used to evacuate the pneumoperitoneum and subsequently removed. Local anesthesia was infiltrated in all the wounds, the wounds were closed in layers using #3-0 Vicryl for subcutaneous tissue and #4 Monocryl for the skin. At the end of the procedure all counts were correct, the patient tolerated well the procedure and was transferred to the PACU in stable condition.
--- NOTE | 2024-06-29 20:28 | ANE.PACU2 ---
Inpatient post-anesthesia follow up: Airway intact: Yes Vital signs: Temperature 98.6 F Pulse Rate 102 Respiratory Rate 16 Blood Pressure 107/76 Pulse Oximetry 94 Oxygen Delivery Me thod Room Air Oxygen Flow Rate 6 Fraction of Inspir ed Oxygen Hydration adequate: Yes Nausea and vomiting: No Pain level: 1 Mental status: Baseline
[2024-06-29] MEDS: lactated ringers 1,000 ML 125 ML IV (20:47)
[2024-06-29] MEDS: sodium chloride 0.9% 1,000 ML 30 ML IV (20:47)
[2024-06-29] MEDS: morphine 4 mg/mL SDV 1 mL 2 MG IVP (21:01)
[2024-06-29] MEDS: lidocaine 1% 5 ML in potassium chloride premix 100 ML 52.5 ML IV (21:05)
[2024-06-29] MEDS: enoxaparin 40 mg/0.4 mL Syringe SUBCUT (22:11)
[2024-06-30] VITALS (8 sets, daily range): BP systolic 94–115; BP diastolic 60–79; PULSE 84–100; RESP 14–17; TEMP 36.4–37.2; O2SAT 95–96
[2024-06-30] MEDS: lactated ringers 1,000 ML 125 ML IV (00:59)
[2024-06-30] MEDS: acetaminophen 325 mg Tablet 650 MG PO ×4 (03:04→21:29)
[2024-06-30 04:59] LABS: Basophils % 0.2 %; Hematocrit 28.7 % (36-47); Lymphocytes # 0.7 10^3/uL (0.8-4.8); Lymphocytes % 6.5 %; Mean Corpuscular HGB Conc 31.4 g/dL (30-55); Mean Corpuscular Hemoglobin 27.9 pg (27-33); Mean Corpuscular Volume 88.9 fl (85-98); Mean Platelet Volume 8.8 fL (7.4-10.4); Monocytes # 0.3 10^3/uL (0.2-0.9); Monocytes % 3.1 %; Neutrophils # 9.64 10^3/uL (1.8-7.7); Neutrophils % 89.3 %; Nucleated Red Blood Cells % 0 %; Platelet Count 264 10^3/cmm (157-399); Red Blood Count 3.23 10^6/uL (3.85-5.65); Red Cell Distribution Width 14.6 % (12.1-15.1)
[2024-06-30 05:18] LABS: Blood Urea Nitrogen 21 mg/dL (6-20); Calcium 7.8 mg/dL (8.5-10.5); Carbon Dioxide 20 mmol/L (22-29); Chloride 109 mmol/L (98-107); Creatinine Clr Calc Pharmacy 53.6728; Glomerular Filtration Rate 38.9 mL/min (90-130); Glucose 139 mg/dL (65-115); Osmolality Calculated 297 mOsm/kg (285-295); Phosphorus 4.6 mg/dL (2.5-4.5); Sodium 141 mmol/L (136-145)
[2024-06-30] MEDS: piperacillin-tazobactam 3.375 GM in sodium chloride 0.9% (plus) 50 ML IV ×3 (06:01→21:30)
[2024-06-30] MEDS: linezolid premix 600 MG/300 ML PREMIX 300 MG IV ×2 (06:02→20:21)
[2024-06-30] MEDS: morphine 4 mg/mL SDV 1 mL 2 MG IVP (08:45)
[2024-06-30] MEDS: docusate sodium 100 mg Capsule PO ×2 (08:46→17:53)
--- NOTE | 2024-06-30 09:09 | P.PN_ITS ---
Subjective 2 Subjective: She is postoperative day 3 status post I&D of large perianal abscess, postoperative day 1 status post laparoscopic appendectomy for perforated acute appendicitis. Patient doing well overnight, no significant fever chills does complain of pain on the surgical site. Last bowel movement was yesterday night. Vitals/I&O/Wt Last Vital Signs Temp 98.2 F 06/30/24 07:44 Pulse 88 06/30/24 07:44 Resp 15 06/30/24 07:44 BP 97/61 06/30/24 07:44 Pulse Ox 95 06/30/24 07:44 O2 Del Method Room Air 06/30/24 07:44 O2 Flow Rate 6 06/27/24 15:20 06/29/24 06/30/24 06/30/24 22:59 06:59 14:59 Intake Total 2750 / 3340 1180 / 4520 200 / 200 Output Total 660 / 660 475 / 1135 Balance 2090 / 2680 705 / 3385 200 / 200 Weight last 48 hrs Weight 178 lb 9 oz Weight 180 lb Physical Exam 2 GI: OTHER: Abdominal examination is benign there are some tenderness in the right upper quadrant consistent with area where the appendix was located. MARIAMA drain with cloudy fluid which was expected. : OTHER: Gluteal area dressing was removed, noted to be soiled with the stool, I washed out the cavity with several saline flushes and finally repacked the cavity. Urinary Catheter Management: Quijano: Cath Placed During This Visit: yes Reason for Continuing Indwelling Catheter: Accurate Measurement of Urinary Output in Critically Ill Patients Urinary Catheter Date of Insertion: 06/29/24 Urinary Catheter Time of Insertion: 22:53 Data 06/30/24 04:46 06/30/24 04:46 Micro: Microbiology 06/27/24 14:35 Gram Stain - Final Buttock Anaerobic Culture - Preliminary Anaerobic gram negative rods Abscess Culture - Preliminary Strep species, gamma-hemolytic 06/27/24 14:30 Gram Stain - Final Buttock Anaerobic Culture - Preliminary Anaerobic gram negative rods Abscess Culture - Preliminary Strep species, gamma-hemolytic 06/27/24 18:35 Blood Culture - Preliminary Blood Escherichia coli 06/27/24 18:35 Blood Culture - Preliminary Blood Escherichia coli 06/29/24 14:15 Blood Culture - Preliminary Blood SPECIMEN COLLECTED 06/29/24 14:12 Blood Culture - Preliminary Blood SPECIMEN COLLECTED 06/27/24 09:10 Gram Stain - Final Buttock Wound Culture - Preliminary Strep species, gamma-hemolytic A&P Assessment and plan (1) Acute appendicitis: Plan Patient showing good progression after incision and drainage of perianal abscess, and laparoscopic appendectomy for perforated acute appendicitis. Acute kidney injury has improved, white count is back to normal. Afebrile, tachycardia has resolved. Plan for today is for patient to ambulate as much as possible, we will continue with diet as tolerated. Patient will stay in the hospital for 3 to 5 days for IV antibiotics before transition to the outpatient setting. Attestations 2 Medical Necessity Statement*: Patient will require 3 to 5 days of hospital stay for management of bacteremia, acute kidney injury and antibiotic management after laparoscopic appendectomy for perforated acute appendicitis. Coding Level of Care Code Acute Code for [facility] Diagnoses Acute appendicitis K35.80
[2024-06-30] MEDS: sodium chloride 0.9% 1,000 ML 125 ML IV ×2 (09:26→17:53)
[2024-06-30 12:21] LABS: Vancomycin Trough 7.5 ug/mL (10-15)
--- NOTE | 2024-06-30 15:05 | P.PN_ITS ---
Subjective 2 Subjective: Patient was seen this morning, she is feeling better this morning, no fevers overnight, no chills, abdominal pain is improving, no nausea, no vomiting, Vitals/I&O/Wt Last Vital Signs Temp 98.9 F 06/30/24 12:10 Pulse 100 06/30/24 12:10 Resp 15 06/30/24 12:10 BP 107/73 06/30/24 12:10 Pulse Ox 95 06/30/24 12:10 O2 Del Method Room Air 06/30/24 12:10 O2 Flow Rate 6 06/27/24 15:20 06/30/24 06/30/24 06/30/24 06:59 14:59 22:59 Intake Total 1180 / 4520 1250 / 1250 Output Total 475 / 1135 Balance 705 / 3385 1250 / 1250 Weight last 48 hrs Weight 80.995 kg Weight 81.647 kg Physical Exam 2 Const: COMMON NORMALS: no acute distress and patient oriented x3 Resp: COMMON NORMALS: normal respiratory effort, No retractions, No use of accessory muscles and clear to auscultation bilaterally AUSCULTATION: clear to auscultation bilaterally Cardio: COMMON NORMALS: regular rate, regular rhythm, S1 normal heart sound present and S2 normal heart sound present RATE: regular rate RHYTHM: r egular rhythm HEART SOUNDS: S1 normal heart sound present and S2 normal heart sound present GI: OTHER: Abdomen is soft, distended, no guarding, no rebound, no significant tenderness to palpation, good bowel sounds in all 4 quadrants, has a MARIAMA drain in place Extremity: COMMON NORMALS: no pedal edema Neuro: COMMON NORMALS: patient oriented x3 Psych: COMMON NORMALS: mental status grossly normal Urinary Catheter Management: Quijano: Cath Placed During This Visit: yes, but has since been removed by the nurse Reason for Continuing Indwelling Catheter: Decision to DC Catheter Urinary Catheter Date of Insertion: 06/29/24 Urinary Catheter Time of Insertion: 22:53 Date Urinary Catheter Removed: 06/30/24 Time Urinary Catheter Discontinued: 10:42 Data 06/30/24 04:46 06/30/24 04:46 Micro: Microbiology 06/29/24 14:15 Blood Culture - Preliminary Blood NEGATIVE TO DATE 06/29/24 14:12 Blood Culture - Preliminary Blood NEGATIVE TO DATE 06/27/24 14:30 Gram Stain - Final Buttock Anaerobic Culture - Preliminary Anaerobic gram negative rods Abscess Culture - Preliminary Strep species, gamma-hemolytic 06/27/24 14:35 Gram Stain - Final Buttock Anaerobic Culture - Preliminary Anaerobic gram negative rods Abscess Culture - Preliminary Strep species, gamma-hemolytic 06/27/24 18:35 Blood Culture - Final Blood Escherichia coli 06/27/24 18:35 Blood Culture - Final Blood Escherichia coli 06/29/24 18:23 Gram Stain - Final Abdomen 06/27/24 09:10 Gram Stain - Final Buttock Wound Culture - Preliminary Strep species, gamma-hemolytic A&P Assessment and plan (1) E. coli bacteremia: (2) Abscess, perianal: (3) Fibroid uterus: (4) Acute appendicitis: (5) Sepsis: Plan Left-sided perianal abscess CT/CT abdomen pelvis w con* [id number] IMPRESSION: 1. Midline to left-sided Perianal abscess, as described above. Adjacent severe edema, fluid and air bubbles extending into the posterior left gluteal deep subcutaneous tissues. Recommend surgical consultation. -Patient's status post incision and drainage, in the emergency room -Status post incision and drainage in the OR by Dr. Jaylene Romo, measuring 7 x 7 x 5 cm, Plan ? Abscess cultures anaerobic gram-negative rods, strep species -Continue IV antibiotics, switch to Zyvox, Zosyn -Continue wound care Acute appendicitis Right lower quadrant pain -CT scan this morning shows Liver: There is diffuse fatty infiltration of the liver. The liver is otherwise normal. Gallbladder and biliary ducts: There is layering hyperdensity within the gallbladder. This could reflect vicarious excretion of contrast which is layering within the gallbladder or possibly sludge. No pericholecystic inflammatory change is identified. Pancreas: Normal. No ductal dilation. Spleen: Normal. No splenomegaly. Adrenal glands: Normal. No mass. Kidneys and ureters: Small nonobstructing renal calculus is noted on the left. The kidneys otherwise have a normal noncontrast appearance. Stomach and bowel: Unremarkable. No obstruction. No mucosal thickening. Appendix: There is dilatation of the appendix with adjacent wall thickening and periappendiceal fat stranding compatible with appendicitis. Status post ruptured acute appendicitis with peritonitis, status post laparoscopic appendectomy Plan -Currently MARIAMA drain in place -Continue IV antibiotics, on Zyvox and Zosyn E. coli bacteremia, -CRP 139.3, Pro-Evert 14.36 -Source -Left-sided perianal abscess -Possible UTI given patient's symptoms of dysuria - appendicitis -Await sensitivity, continue Zosyn -Repeat blood cultures pending Acute kidney injury, improving -Likely multifactorial from sepsis, bacteremia, contrast-induced nephropathy, dehydration -Continue lactated Ringer's at 125 cc an hour -Monitor urine output closely Full code Lovenox for DVT prophylaxis tonight Attestations 2 Medical Necessity Statement*: Patient requires hospitalization for acute appendicitis, E. coli bacteremia, JONATHAN, left side perianal abscess Diagnoses E. coli bacteremia R78.81; B96.20 Abscess, perianal K61.0 Fibroid uterus D25.9 Acute appendicitis K35.80 Sepsis A41.9
[2024-06-30] MEDS: pantoprazole 40 mg SDV IVP (16:22)
[2024-06-30] MEDS: enoxaparin 40 mg/0.4 mL Syringe SUBCUT (21:29)
[2024-07-01] MEDS: sodium chloride 0.9% 1,000 ML 125 ML IV (01:59)
[2024-07-01 03:35] LABS: Basophils % 0.4 %; Eosinophils # 0.2 10^3/uL (0.0-0.8); Eosinophils % 2.1 %; Hematocrit 27.7 % (36-47); Lymphocytes # 1.6 10^3/uL (0.8-4.8); Lymphocytes % 20.1 %; Mean Corpuscular Hemoglobin 27.7 pg (27-33); Mean Corpuscular Volume 89.4 fl (85-98); Mean Platelet Volume 9.1 fL (7.4-10.4); Monocytes # 0.5 10^3/uL (0.2-0.9); Monocytes % 6.6 %; Neutrophils % 67.3 %; Nucleated Red Blood Cells % 0 %; Platelet Count 302 10^3/cmm (157-399); White Blood Count 8.17 10^3/uL (3.29-11.43)
[2024-07-01 03:51] VITALS: BP 117/77; PULSE 86; RESP 17; TEMP 36.6; O2SAT 95
[2024-07-01 03:54] LABS: Anion Gap 10.6 (5-19); Blood Urea Nitrogen 18 mg/dL (6-20); Carbon Dioxide 23 mmol/L (22-29); Chloride 110 mmol/L (98-107); Creatinine Clr Calc Pharmacy 53.4634; Glomerular Filtration Rate 38.9 mL/min (90-130); Glucose 89 mg/dL (65-115); Osmolality Calculated 291 mOsm/kg (285-295); Potassium 3.6 mmol/L (3.5-5.1); Sodium 140 mmol/L (136-145)
[2024-07-01 03:58] LABS: C Reactive Protein 124.9 mg/L (0.0-4.9)
[2024-07-01 04:00] LABS: Procalcitonin 3.72 ng/mL (0-0.5)
[2024-07-01] MEDS: acetaminophen 325 mg Tablet 650 MG PO ×4 (04:39→21:35)
[2024-07-01 06:00] VITALS: PULSE 78
[2024-07-01] MEDS: linezolid premix 600 MG/300 ML PREMIX 300 MG IV ×2 (06:34→20:15)
[2024-07-01 07:48] VITALS: BP 122/75; PULSE 92; RESP 19; TEMP 36.4; O2SAT 94
[2024-07-01 09:06] LABS: Alanine Aminotransferase 28 U/L (0-33); Albumin Level 2.5 g/dL (3.5-5.2); Alkaline Phosphatase 92 U/L (35-105); Aspartate Amino Transferase 21 U/L (0-32); Creatine Phosphokinase 37 U/L (26-192); Gamma Glutamyl Transferase 133 U/L (5-36); Globulin 1.8 g/dL (1.3-4.6); Lipase 10 U/L (13-60); Total Bilirubin 0.2 mg/dL (0.15-1.2); Total Protein 4.3 g/dL (6.6-8.7)
[2024-07-01] MEDS: docusate sodium 100 mg Capsule PO ×2 (09:33→18:03)
[2024-07-01] MEDS: metoclopramide 5 mg/mL SDV 2 mL IVP ×2 (09:33→18:02)
[2024-07-01] MEDS: HYDROmorphone 1 mg/mL INJ 1 mL 0.5 MG IVP ×2 (09:33→18:02)
--- NOTE | 2024-07-01 09:48 | P.PN_ITS ---
Subjective 2 Subjective: 39-year-old female postoperative day 2 s tatus post laparoscopic appendectomy for perforated acute appendicitis and postoperative day 4 status post I&D of large perianal abscess. Patient is doing okay complains of some nausea this morning she has been voiding and having bowel movements. Output from the MARIAMA drain is a little bit turbid but not purulent. Has been ambulating. Vitals/I&O/Wt Last Vital Signs Temp 97.6 F 07/01/24 07:48 Pulse 92 07/01/24 07:48 Resp 19 H 07/01/24 07:48 BP 122/75 07/01/24 07:48 Pulse Ox 94 07/01/24 07:48 O2 Del Method Room Air 07/01/24 07:48 O2 Flow Rate 6 06/27/24 15:20 06/30/24 07/01/24 07/01/24 22:59 06:59 14:59 Intake Total 1470 / 2960 1050 / 4010 Output Total 65 / 65 Balance 1405 / 2895 1050 / 3945 Weight last 48 hrs Weight 186 lb 8 oz Weight 178 lb 9 oz Physical Exam 2 GI: OTHER: Abdomen is soft nontender nondistended surgical incisions are covered with Dermabond and healing well. MARIAMA output has slightly turbid fluid. Urinary Catheter Management: Quijano: Cath Placed During This Visit: yes, but has since been removed by the nurse Reason for Continuing Indwelling Catheter: Decision to DC Catheter Urinary Catheter Date of Insertion: 06/29/24 Urinary Catheter Time of Insertion: 22:53 Date Urinary Catheter Removed: 06/30/24 Time Urinary Catheter Discontinued: 10:42 Data 07/01/24 02:41 07/01/24 02:41 Micro: Microbiology 06/27/24 14:35 Gram Stain - Final Buttock Anaerobic Culture - Preliminary Anaerobic gram negative rods Abscess Culture - Final Strep anginosus group 06/27/24 14:30 Gram Stain - Final Buttock Anaerobic Culture - Preliminary Anaerobic gram negative rods Abscess Culture - Final Strep anginosus group 06/27/24 09:10 Gram Stain - Final Buttock Wound Culture - Preliminary Strep anginosus group 06/29/24 14:15 Blood Culture - Preliminary Blood NEGATIVE TO DATE 06/29/24 14:12 Blood Culture - Preliminary Blood NEGATIVE TO DATE 06/27/24 18:35 Blood Culture - Final Blood Escherichia coli 06/27/24 18:35 Blood Culture - Final Blood Escherichia coli 06/29/24 18:23 Gram Stain - Final Abdomen A&P Assessment and plan (1) Abscess, perianal: (2) Acute appendicitis: (3) E. coli bacteremia: (4) Sepsis: Plan Patient is showing adequate progression over the last 24 hours, her vital signs are stable she does not have a fever. The white count is normal. She is tolerating diet but is elevated nauseous, last bowel movement was this morning. I think her nausea is likely multifactorial since we are giving her multiple medications and also she has a slight JONATHAN. I have discussed with the medical team her cultures show E. coli that is resistant to Cipro, likely she will require 2 weeks of IV antibiotics due to the bacteremia. We will plan on placement of PICC line and outpatient antibiotic therapy in the following 2 to 3 days. From the surgical standpoint I have asked the patient to ambulate as much as possible, take it is low with a full and I will plan to remove the MARIAMA drain the day That she is planned for discharge. Attestations 2 Medical Necessity Statement*: Patient will require 2-3 more days of hospital stay for antibiotic management of sepsis bacteremia and acute appendicitis with perforation. Coding Level of Care Code Acute Code for [facility] Diagnoses Abscess, perianal K61.0 Acute appendicitis K35.80 E. coli bacteremia R78.81; B96.20 Sepsis A41.9
[2024-07-01] MEDS: piperacillin-tazobactam 3.375 GM in sodium chloride 0.9% (plus) 50 ML IV ×3 (09:51→21:35)
[2024-07-01] MEDS: sodium chloride 0.9% 1,000 ML 100 ML IV ×2 (10:38→20:15)
[2024-07-01 12:00] VITALS: BP 133/82; PULSE 83; RESP 18; TEMP 36.4; O2SAT 96
[2024-07-01 12:45] LABS: Basophils % 0.2 %; Eosinophils # 0.2 10^3/uL (0.0-0.8); Eosinophils % 2.5 %; Hematocrit 28.3 % (36-47); Lymphocytes # 1.5 10^3/uL (0.8-4.8); Lymphocytes % 16.8 %; Mean Corpuscular HGB Conc 31.4 g/dL (30-55); Mean Corpuscular Hemoglobin 28.2 pg (27-33); Mean Corpuscular Volume 89.6 fl (85-98); Mean Platelet Volume 8.9 fL (7.4-10.4); Monocytes # 0.6 10^3/uL (0.2-0.9); Monocytes % 6.3 %; Neutrophils # 6.16 10^3/uL (1.8-7.7); Neutrophils % 70.4 %; Nucleated Red Blood Cells % 0 %; Platelet Count 310 10^3/cmm (157-399); Red Blood Count 3.16 10^6/uL (3.85-5.65); Red Cell Distribution Width 14.7 % (12.1-15.1); White Blood Count 8.75 10^3/uL (3.29-11.43)
--- NOTE | 2024-07-01 13:48 | P.PN_ITS ---
Subjective 2 Subjective: Patient was seen this morning, she has been uncomfortable she tells me that the morphine does not last, she continues to have breakthrough pain, discussed switching to Dilaudid continues to have nausea, we discussed adding on Reglan, we discussed her blood culture showing E. coli species that is resistant to Cipro she will likely need IV antibiotics on discharge for at least 2 weeks, will likely need a midline place, discussed for her to ambulate, she does report passing gas but has not had a bowel movement this morning yet, is urinating on her own, Vitals/I&O/Wt Last Vital Signs Temp 97.5 F L 07/01/24 12:00 Pulse 83 07/01/24 12:00 Resp 18 07/01/24 12:00 BP 133/82 07/01/24 12:00 Pulse Ox 96 07/01/24 12:00 O2 Del Method Room Air 07/01/24 12:00 O2 Flow Rate 6 06/27/24 15:20 06/30/24 07/01/24 07/01/24 22:59 06:59 14:59 Intake Total 1470 / 2960 1050 / 4010 1660 / 1660 Output Total 65 / 65 Balance 1405 / 2895 1050 / 3945 1660 / 1660 Weight last 48 hrs Weight 84.595 kg Weight 80.995 kg Physical Exam 2 Const: COMMON NORMALS: no acute distress and patient oriented x3 Resp: COMMON NORMALS: normal respiratory effort, No retractions, No use of accessory muscles and clear to auscultation bilaterally AUSCULTATION: clear to auscultation bilaterally Cardio: COMMON NORMALS: regular rate, regular rhythm, S1 normal heart sound present and S2 normal heart sound present RATE: regular rate RHYTHM: r egular rhythm HEART SOUNDS: S1 normal heart sound present and S2 normal heart sound present GI: OTHER: Abdomen soft, slightly distended, good bowel sounds, no guarding, no rebound, rigidity, surgical site looks clean and dry MARIAMA drain in place Extremity: COMMON NORMALS: no pedal edema Neuro: COMMON NORMALS: patient oriented x3 Psych: COMMON NORMALS: mental status grossly normal Urinary Catheter Management: Quijano: Cath Placed During This Visit: yes, but has since been removed by the nurse Reason for Continuing Indwelling Catheter: Decision to DC Catheter Urinary Catheter Date of Insertion: 06/29/24 Urinary Catheter Time of Insertion: 22:53 Date Urinary Catheter Removed: 06/30/24 Time Urinary Catheter Discontinued: 10:42 Data 07/01/24 12:31 07/01/24 02:41 Micro: Microbiology 06/29/24 18:23 Gram Stain - Final Abdomen Anaerobic Culture - Preliminary 06/27/24 14:35 Gram Stain - Final Buttock Anaerobic Culture - Preliminary Anaerobic gram negative rods Abscess Culture - Final Strep anginosus group 06/27/24 14:30 Gram Stain - Final Buttock Anaerobic Culture - Preliminary Anaerobic gram negative rods Abscess Culture - Final Strep anginosus group 06/27/24 09:10 Gram Stain - Final Buttock Wound Culture - Preliminary Strep anginosus group 06/29/24 14:15 Blood Culture - Preliminary Blood NEGATIVE TO DATE 06/29/24 14:12 Blood Culture - Preliminary Blood NEGATIVE TO DATE 06/27/24 18:35 Blood Culture - Final Blood Escherichia coli 06/27/24 18:35 Blood Culture - Final Blood Escherichia coli A&P Assessment and plan (1) E. coli bacteremia: (2) Abscess, perianal: (3) Fibroid uterus: (4) Acute appendicitis: (5) Sepsis: Plan Left-sided perianal abscess CT/CT abdomen pelvis w con* [id number] IMPRESSION: 1. Midline to left-sided Perianal abscess, as described above. Adjacent severe edema, fluid and air bubbles extending into the posterior left gluteal deep subcutaneous tissues. Recommend surgical consultation. -Patient's status post incision and drainage, in the emergency room -Status post incision and drainage in the OR by Dr. Jaylene Romo, measuring 7 x 7 x 5 cm, Plan ? Abscess cultures anaerobic gram-negative rods, strep species -Continue IV antibiotics, switch to Zyvox, Zosyn -Continue wound care Acute appendicitis Right lower quadrant pain -CT scan this morning shows Liver: There is diffuse fatty infiltration of the liver. The liver is otherwise normal. Gallbladder and biliary ducts: There is layering hyperdensity within the gallbladder. This could reflect vicarious excretion of contrast which is layering within the gallbladder or possibly sludge. No pericholecystic inflammatory change is identified. Pancreas: Normal. No ductal dilation. Spleen: Normal. No splenomegaly. Adrenal glands: Normal. No mass. Kidneys and ureters: Small nonobstructing renal calculus is noted on the left. The kidneys otherwise have a normal noncontrast appearance. Stomach and bowel: Unremarkable. No obstruction. No mucosal thickening. Appendix: There is dilatation of the appendix with adjacent wall thickening and periappendiceal fat stranding compatible with appendicitis. Status post ruptured acute appendicitis with peritonitis, status post laparoscopic appendecto Plan -Currently MARIAMA drain in place -Continue IV antibiotics, on Zyvox and Zosyn E. coli bacteremia, -CRP 139.3, Pro-Evert 14.36 -Source -Left-sided perianal abscess -Possible UTI given patient's symptoms of dysuria - appendicitis -Await sensitivity, continue Zosyn -Repeat blood cultures pending -E. coli is resistant to Cipro will likely need Rocephin for 2 weeks, placed orders for midline once repeat blood cultures are negative tomorrow Acute kidney injury, improving -Likely multifactorial from sepsis, bacteremia, contrast-induced nephropathy, dehydration -Normal saline at 100 cc an hour -Monitor urine output closely Full code Lovenox for DVT prophylaxis tonight Plan for today continue IV antibiotics, monitor clinically, switch to Dilaudid, add Reglan, up out of bed, ambulate, recheck BMP this afternoon will consider stopping IV fluids for JONATHAN based on creatinine trend, spoke to infectious disease, will consult Attestations 2 Medical Necessity Statement*: Patient requires hospitalization for acute appendicitis, with perforation, requiring IV antibiotics E. coli bacteremia, JONATHAN and High MDM includes number and complexity of problems actively addressed during encounter, amount and/or complexity of data reviewed/ordered and described risk of complication, morbidity or mortality of management as documented Diagnoses E. coli bacteremia R78.81; B96.20 Abscess, perianal K61.0 Fibroid uterus D25.9 Acute appendicitis K35.80 Sepsis A41.9
[2024-07-01 14:15] LABS: Anion Gap 15.6 (5-19); Blood Urea Nitrogen 17 mg/dL (6-20); Calcium 7.9 mg/dL (8.5-10.5); Carbon Dioxide 20 mmol/L (22-29); Chloride 113 mmol/L (98-107); Creatinine Clr Calc Pharmacy 63.0224; Glomerular Filtration Rate 45.8 mL/min (90-130); Glucose 93 mg/dL (65-115); Osmolality Calculated 301 mOsm/kg (285-295); Potassium 3.6 mmol/L (3.5-5.1); Sodium 145 mmol/L (136-145)
[2024-07-01] MEDS: pantoprazole 40 mg SDV IVP (15:06)
[2024-07-01 16:00] VITALS: BP 137/90; PULSE 88; RESP 18; TEMP 36.7; O2SAT 96
[2024-07-01 20:00] VITALS: BP 133/75; PULSE 80; RESP 16; TEMP 36.7; O2SAT 96
[2024-07-01] MEDS: enoxaparin 40 mg/0.4 mL Syringe SUBCUT (21:35)
[2024-07-01] MEDS: ondansetron 2 mg/ML SDV 2 mL 4 MG IVP (21:53)
[2024-07-02] VITALS (8 sets, daily range): BP systolic 120–162; BP diastolic 63–92; PULSE 68–92; RESP 15–20; TEMP 36.4–36.9; O2SAT 95–97
[2024-07-02] MEDS: acetaminophen 325 mg Tablet 650 MG PO ×4 (04:50→22:45)
[2024-07-02 05:53] LABS: Basophils % 0.5 %; Eosinophils # 0.3 10^3/uL (0.0-0.8); Eosinophils % 3.5 %; Hematocrit 30.7 % (36-47); Lymphocytes # 1.6 10^3/uL (0.8-4.8); Lymphocytes % 19.3 %; Mean Corpuscular HGB Conc 31.3 g/dL (30-55); Mean Corpuscular Hemoglobin 28.6 pg (27-33); Mean Corpuscular Volume 91.4 fl (85-98); Monocytes # 0.6 10^3/uL (0.2-0.9); Monocytes % 7.4 %; Neutrophils # 5.46 10^3/uL (1.8-7.7); Neutrophils % 64.9 %; Nucleated Red Blood Cells % 0 %; Platelet Count 362 10^3/cmm (157-399); Red Blood Count 3.36 10^6/uL (3.85-5.65); Red Cell Distribution Width 14.7 % (12.1-15.1)
[2024-07-02 06:11] LABS: Anion Gap 13.2 (5-19); Blood Urea Nitrogen 13 mg/dL (6-20); Calcium 8.5 mg/dL (8.5-10.5); Carbon Dioxide 22 mmol/L (22-29); Chloride 106 mmol/L (98-107); Creatinine Clr Calc Pharmacy 63.0224; Glomerular Filtration Rate 45.8 mL/min (90-130); Glucose 96 mg/dL (65-115); Osmolality Calculated 286 mOsm/kg (285-295); Potassium 3.2 mmol/L (3.5-5.1); Sodium 138 mmol/L (136-145)
[2024-07-02] MEDS: linezolid premix 600 MG/300 ML PREMIX 300 MG IV (06:31)
[2024-07-02] MEDS: sodium chloride 0.9% 1,000 ML 100 ML IV (06:31)
--- NOTE | 2024-07-02 07:09 | PM.PN ---
Subjective Subjective: Doing well this morning, abdominal pain and gluteal pain which has significantly improved. No fever or chills. Having bowel function. Vitals/I&O/Wt Last Vital Signs Temp 98.1 F 07/02/24 07:04 Pulse 84 07/02/24 07:04 Resp 17 07/02/24 07:04 BP 123/83 07/02/24 07:04 Pulse Ox 96 07/02/24 07:04 O2 Del Method Room Air 07/02/24 07:04 O2 Flow Rate 6 06/27/24 15:20 07/01/24 07/02/24 07/02/24 22:59 06:59 14:59 Intake Total 1731.667 / 3441.667 1050 / 4491.667 Output Total 35 / 35 Balance 1731.667 / 3441.667 1015 / 4456.667 Weight last 48 hrs Weight 189 lb 6.4 oz Weight 186 lb 8 oz Physical Exam GI: OTHER: Abdomen soft nontender nondistended, surgical incisions are healing well, MARIAMA output appears to be serosanguineous. Urinary Catheter Management: Quijano: Cath Placed During This Visit: yes, but has since been removed by the nurse Reason for Continuing Indwelling Catheter: Decision to DC Catheter Urinary Catheter Date of Insertion: 06/29/24 Urinary Catheter Time of Insertion: 22:53 Date Urinary Catheter Removed: 06/30/24 Time Urinary Catheter Discontinued: 10:42 Data 07/02/24 05:16 07/02/24 05:16 Micro: Microbiology 06/27/24 09:10 Gram Stain - Final Buttock Wound Culture - Final Strep anginosus group 06/27/24 14:30 Gram Stain - Final Buttock Anaerobic Culture - Preliminary Bacteroides fragilis Abscess Culture - Final Strep anginosus group 06/27/24 14:35 Gram Stain - Final Buttock Anaerobic Culture - Preliminary Bacteroides fragilis Abscess Culture - Final Strep anginosus group 06/29/24 18:23 Gram Stain - Final Abdomen Anaerobic Culture - Preliminary Abscess Culture - Preliminary Gram Negative Rods A&P Assessment and plan (1) Abscess, perianal: (2) Acute appendicitis: Plan Patient showing good progression over the last 24 hours. The plan at this time is to start setting up outpatient antibiotics for patient to go home and 1 to 2 weeks of IV antibiotics due to bacteremia. I will remove her MARIAMA drain before discharge. We will transition to nursing last dressing changes for the gluteal area that this is healing very well. I have encouraged ambulation. I confirmed the patient that kidney function is improving. She is overall in good spirits. Attestations Medical Necessity Statement*: Patient will be discharging next for 48 hours. after her antibiotics have been set up Coding Level of Care Code Acute Code for [facility] Diagnoses Abscess, perianal K61.0 Acute appendicitis K35.80
[2024-07-02] MEDS: metoclopramide 5 mg/mL SDV 2 mL IVP ×2 (09:18→16:47)
[2024-07-02] MEDS: HYDROmorphone 1 mg/mL INJ 1 mL 0.5 MG IVP ×2 (09:18→16:44)
[2024-07-02] MEDS: docusate sodium 100 mg Capsule PO ×2 (09:19→16:44)
[2024-07-02] MEDS: cefTRIAXone 1,000 mg SDV 1000 MG IVP (10:37)
[2024-07-02] MEDS: metroNIDAZOLE 500 MG Tablet PO ×3 (10:37→22:45)
--- NOTE | 2024-07-02 11:18 | PM.CONSULT ---
Providers/Reason For Consult Consulting Physician/Specialty*: Stacey Nathan MD / Infectious Disease Reason for Consult*: abdominal abscess Requesting Physician: David Davies MD Attending Physician: Michael Rogers MD Primary Care Provider: Jonathon Gil MD History of Present Illness History of Present Illness Samantha Farmer is a 39 year old female reports significant medical comorbidities who presented to the hospital initially on 06/24/2024 with hemorrhoids and constipation. She had been using Preparation H without significant relief. She was recommended to use ice pack and sitz bath and recommended to wash the area with warm water and discharged home. She returned to the ER on 06/27/2024 with left gluteal swelling and perianal pain. She underwent CT of the abdomen and pelvis which showed midline to left-sided perianal abscess with adjacent severe edema and fluid and air bubbles extending into the posterior left gluteal subcutaneous tissues. Additionally noted was acute appendicitis with adjacent edema. There was no free air or well-defined abscess at the time. Multiple proximal appendix stones were identified. She underwent I&D of the perianal abscess on June 27, 2024. 150 cc of purulent pus was aspirated. Cultures of with polymicrobial including E. coli, Bacteroides and strep species. He continued to experience> abdominal pain and underwent appendectomy on 06/29/2024 due to rupture of the acute appendicitis with peritonitis. Intraoperatively phlegmon was noticed between the liver and omentum and appendix in the right upper quadrant. There was purulent free fluid in the right paracolic gutter and perihepatic space. Her blood cultures were with 4 out of 4 bottles positive for E. coli. Patient is clinically improving and is planned for discharge soon. ID service is consulted for recommendations with regards to discharge antibiotics. Review of Systems General: Reports: 10 or more systems reviewed and unremarkable except in HPI and below Const: Denies: fever(s), chills or body aches Eyes: Denies: change in vision, blurry vision or photophobia ENMT: Reports: hoarseness; Denies: throat pain, enlarged tonsils, odynophagia or nasal congestion Card: Denies: chest pain, palpitations, irregular heart rhythm, edema, swelling of feet/ankles, lightheadedness, pre-syncope, dyspnea on exertion or orthopnea Resp: Denies: dyspnea, productive cough, non-productive cough, wheezing, stridor, pain on inspiration, change in phlegm color, hemoptysis or chest congestion GI: Denies: abdominal pain, nausea, vomiting, hematemesis, coffee ground emesis, dysphagia, heartburn, diarrhea, constipation, GI cramping, change in stool character, hematochezia or melena : Denies: flank pain, difficulty voiding, dysuria, urinary frequency, urinary urgency, urinary hesitancy or hematuria Musc: Denies: neck pain, back pain, extremity pain, joint swelling, joint warmth or deformity Neuro: Denies: headache(s), numbness in extremities, weakness in extremities, sensory changes, difficulty walking, frequent falls, dizziness, vertigo, behavioral changes, Slurred speech present or seizure-like activity Psych: Denies: anxiety, depression, suicidal ideation or homicidal ideation Endo: Denies: polyuria, polydipsia, tired all the time, cold intolerance or hot flashes Gama/Lymph: Denies: easy bruising or easy bleeding Medications/Allergies Home Medications Medication Instructions Recorded Confirmed Last Taken Type medroxyprogesterone 150 mg/mL 150 mg IM .every 10-12 weeks #1 mL 09/06/23 06/27/24 05/17/24 Rx intramuscular suspension (Depo-Provera) hydrocortisone 1 %-pramoxine 1 % 1 applic TX QID PRN itching #10 06/24/24 06/27/24 06/27/24 Rx rectal foam (Proctofoam HC) grams phenylephrine HCl 0.25 % rectal 1 supp TX BID PRN hemorrhoids #12 06/24/24 06/27/24 06/26/24 Rx suppository (Preparation H (pe)) ea Allergies Allergy/AdvReac Type Severity Reaction Status Date / Time No Known Allergies Allergy Verified 06/27/24 08:28 Current Medications Generic Name Dose Route Start Last Admin Trade Name Freq PRN Reason Stop Dose Admin Acetaminophen 650 mg 06/27/24 15:59 07/02/24 09:19 Acetaminophen 325 Mg Tablet PO 650 mg Q6H RUSSELL Administration Ceftriaxone Sodium 1,000 mg 07/02/24 08:45 07/02/24 10:37 Ceftriaxone 1,000 Mg Sdv IVP 1,000 mg Q24H RUSSELL Administration Protocol Docusate Sodium 100 mg 06/27/24 18:00 07/02/24 09:19 Docusate Sodium 100 Mg Capsule PO 100 mg BID RUSSELL Administration Enoxaparin Sodium 40 mg 06/29/24 21:30 07/01/24 21:35 Enoxaparin 40 Mg/0.4 Ml Syringe SUBCUT 40 mg Q24H RUSSELL Administration Hydromorphone HCl 0.5 mg 07/01/24 08:43 07/02/24 09:18 Hydromorphone 1 Mg/Ml Inj 1 Ml IVP 0.5 mg Q6H PRN Administration SEVERE PAIN Metoclopramide HCl 5 mg 07/01/24 08:43 07/02/24 09:18 Metoclopramide 5 Mg/Ml Sdv 2 Ml IVP 5 mg Q6H PRN Administration NAUSEA AND VOMITING Metronidazole 500 mg 07/02/24 09:00 07/02/24 10:37 Metronidazole 500 Mg Tablet PO 500 mg TID RUSSELL Administration Ondansetron HCl 4 mg 06/27/24 15:59 07/01/24 21:53 Ondansetron 2 Mg/Ml Sdv 2 Ml IVP 4 mg Q8H PRN Administration vomiting, or N/V if npo Pantoprazole Sodium 40 mg 06/27/24 15:59 07/01/24 15:06 Pantoprazole 40 Mg Sdv IVP 40 mg Q24H RUSSELL Administration PFSH Acute PFSH: Medical History No pertinent past medical history Denies diabetes, asthma, hypertension, seizures, DVT/PE PCP: Sees any of the providers at [facility] Surgical History Status post delivery 03/10/2021--primary low transverse delivery by Dr. Bowers at [facility] for unstable lie. ---> No extensions, double layer closure Family History Brother Diabetes Father Heart disease Hypertension Grandmother Stroke Paternal Denies family history of Colon cancer Ovarian cancer Hyperlipidemia Breast cancer Uterine cancer Thyroid disease Social History Smoking and tobacco/nicotine status: never used tobacco/nicotine Second hand smoke exposure: No Alcohol intake: never Substance/Drug Use: never Vitals/I&O/Wt Last Vital Signs Temp 98.1 F 07/02/24 07:04 Pulse 84 07/02/24 07:04 Resp 17 07/02/24 07:04 BP 123/83 07/02/24 07:04 Pulse Ox 96 07/02/24 07:04 O2 Del Method Room Air 07/02/24 07:04 O2 Flow Rate 6 06/27/24 15:20 07/01/24 07/02/24 07/02/24 22:59 06:59 14:59 Intake Total 1731.667 / 3441.667 1050 / 4491.667 540 / 540 Output Total 35 / 35 Balance 1731.667 / 3441.667 1015 / 4456.667 540 / 540 Weight last 48 hrs Weight 85.91 kg Weight 84.595 kg Physical Exam Narrative: General: No acute distress, AO x3 HEENT: PERRLA, pupils bilaterally equal and reactive, pallors not present Chest: Normal vesicular breath sounds, no added sounds, equal good air entry bilaterally CVS: S1-S2 regular, no murmurs, no tachycardia, no gallops, no rubs Abdomen: Soft, nontender, no organomegaly, bowel sounds present Neuro: No focal deficits, no facial deformity, AO x3, power 5/5 in all limbs Urinary Catheter Management: Quijano: Cath Placed During This Visit: yes, but has since been removed by the nurse Reason for Continuing Indwelling Catheter: Decision to DC Catheter Urinary Catheter Date of Insertion: 06/29/24 Urinary Catheter Time of Insertion: 22:53 Date Urinary Catheter Removed: 06/30/24 Time Urinary Catheter Discontinued: 10:42 Data 07/02/24 05:16 07/02/24 05:16 Micro: Microbiology 06/27/24 09:10 Gram Stain - Final Buttock Wound Culture - Final Strep anginosus group 06/27/24 14:30 Gram Stain - Final Buttock Anaerobic Culture - Preliminary Bacteroides fragilis Abscess Culture - Final Strep anginosus group 06/27/24 14:35 Gram Stain - Final Buttock Anaerobic Culture - Preliminary Bacteroides fragilis Abscess Culture - Final Strep anginosus group 06/29/24 18:23 Gram Stain - Final Abdomen Anaerobic Culture - Preliminary Abscess Culture - Preliminary Gram Negative Rods Peripheral blood culture 06/27/2024 4 out of 4 bottles positive for E. coli, sensitive to ceftriaxone, aztreonam, Zosyn, resistant to fluoroquinolones. Spec #: [id number] Eloina: 06/27/24 Status: COMP Req #: [id number] Recd: 06/27/24-[address]: Michael Morrison Src: Blood SpDesc: Ordered: Bcult Procedure Result Verified Site Blood Culture Final 06/30/24-1201 4 OF 4 BOTTLES POSITIVE DIRECT GRAM STAIN: GRAM NEGATIVE RODS IDENTIFICATION BY DIRECT PCR Organism 1 Escherichia coli Growth 4 BOTTLES Gram Stain Charge Charge for Gram Stain CRITICAL RESULT YES/NO: YES CRITICAL CALLED BY: RT TO AND READ BACK BY: ECHO DATE: 06/28/24 TIME: 1013 E coli M.I.C. RX --------- ------ * Amikacin <=16 S * Amoxicillin/Clavulanate 16/8 I * Ampicillin >16 R * Ampicillin/Sulbactam >16/8 R * Aztreonam <=4 S * Cefepime <=8 S * Ceftriaxone <=1 S * Cefuroxime <=4 S * Ciprofloxacin >2 R * Gentamicin <=2 S * Imipenem <=1 S * Levofloxacin >4 R * Tetracycline >8 R * Trimethoprim/Sulfamethoxazole >2/38 R * Piperacillin/Tazobactam <=16 S Peripheral blood culture 06/29/2024 negative to date. Other data: Radiology Impressions Abdomen/Pelvis CT 06/29/24 11:06 IMPRESSION: 1. Appendicitis. 2. Trace free fluid within the right paracolic gutter. 3. Please see above comments for additional details. ADDENDUM: 06/29/24 [id number] COMMENT: THIS REPORT CONTAINS FINDINGS THAT MAY BE CRITICAL TO PATIENT CARE. The exam findings were verbally communicated by me to Dr. Rogers via telephone conference at 11:50 AM DIGITAL CIRCUIT DESIGNER on 06/29/2024. The findings were acknowledged and understood. Renal Ultrasound 06/29/24 11:06 IMPRESSION: Normal renal ultrasound. Laboratory Results WBC 8.40 10^3/uL (3.29-11.43) 07/02/24 05:16 RBC 3.36 10^6/uL (3.85-5.65) L 07/02/24 05:16 Hgb 9.60 g/dL (11.27-16.99) L 07/02/24 05:16 Hct 30.7 % (36-47) L 07/02/24 05:16 MCV 91.4 fl (85-98) 07/02/24 05:16 MCH 28.6 pg (27-33) 07/02/24 05:16 MCHC 31.3 g/dL (30-55) 07/02/24 05:16 RDW 14.7 % (12.1-15.1) 07/02/24 05:16 Plt Count 362 10^3/cmm (157-399) 07/02/24 05:16 MPV 9.0 fL (7.4-10.4) 07/02/24 05:16 Neut % (Auto) 64.9 % 07/02/24 05:16 Lymph % (Auto) 19.3 % 07/02/24 05:16 Morton % (Auto) 7.4 % 07/02/24 05:16 Eos % (Auto) 3.5 % 07/02/24 05:16 Baso % (Auto) 0.5 % 07/02/24 05:16 Neut # (Auto) 5.46 10^3/uL (1.8-7.7) 07/02/24 05:16 Lymph # (Auto) 1.6 10^3/uL (0.8-4.8) 07/02/24 05:16 Morton # (Auto) 0.6 10^3/uL (0.2-0.9) 07/02/24 05:16 Eos # (Auto) 0.3 10^3/uL (0.0-0.8) 07/02/24 05:16 Baso # (Auto) 0.0 10^3/uL (0.0-0.1) 07/02/24 05:16 Nucleated RBC % (auto) 0 % 07/02/24 05:16 Total Counted 100 (0-100) 06/28/24 04:48 Atypical Lymphs % 0.0 % (0-5) 06/28/24 04:48 Absolute Neutrophils 13.8 10^3/cmm (1.4-6.5) H 06/28/24 04:48 Segmented Neutrophils 59 % 06/28/24 04:48 Band Neutrophils 37.0 % 06/28/24 04:48 Absolute Lymphocytes 0.6 10^3/cmm (1.2-3.4) L 06/28/24 04:48 Lymphocytes (Manual) 4 % 06/28/24 04:48 Monocytes (Manual) 0.0 % 06/28/24 04:48 Absolute Monocytes 0.0 10^3/cmm (0.1-0.6) L 06/28/24 04:48 Eosinophils (Manual) 0 % 06/28/24 04:48 Absolute Eosinophils 0.0 10^3/cmm (0.0-0.7) 06/28/24 04:48 Basophils (Manual) 0.0 % 06/28/24 04:48 Absolute Basophils 0.0 10^3/cmm (0.0-0.2) 06/28/24 04:48 Nucleated RBCs # 0.0 /100WBC 07/02/24 05:16 Platelet Estimate Normal (Normal) 06/28/24 04:48 Sodium 138 mmol/L (136-145) 07/02/24 05:16 Potassium 3.2 mmol/L (3.5-5.1) L 07/02/24 05:16 Chloride 106 mmol/L (98-107) 07/02/24 05:16 Carbon Dioxide 22 mmol/L (22-29) 07/02/24 05:16 Anion Gap 13.2 (5-19) 07/02/24 05:16 BUN 13 mg/dL (6-20) 07/02/24 05:16 Creatinine 1.3 mg/dL (0.5-0.9) H 07/02/24 05:16 GFR Calculation 45.8 mL/min (90-130) L 07/02/24 05:16 Glucose 96 mg/dL (65-115) 07/02/24 05:16 Calculated Osmolality 286 mOsm/kg (285-295) 07/02/24 05:16 Calcium 8.5 mg/dL (8.5-10.5) 07/02/24 05:16 Phosphorus 4.6 mg/dL (2.5-4.5) H 06/30/24 04:46 Magnesium 2.0 mg/dL (1.7-2.3) 06/30/24 04:46 Total Bilirubin 0.2 mg/dL (0.15-1.2) 07/01/24 02:41 Direct Bilirubin 0.20 mg/dL (0.00-0.30) 07/01/24 02:41 GGT 133 U/L (5-36) H 07/01/24 02:41 AST 21 U/L (0-32) 07/01/24 02:41 ALT 28 U/L (0-33) 07/01/24 02:41 Alkaline Phosphatase 92 U/L (35-105) 07/01/24 02:41 Creatine Kinase 37 U/L (26-192) 07/01/24 02:41 C-Reactive Protein 124.9 mg/L (0.0-4.9) H 07/01/24 02:41 Total Protein 4.3 g/dL (6.6-8.7) L 07/01/24 02:41 Albumin 2.5 g/dL (3.5-5.2) L 07/01/24 02:41 Globulin 1.8 g/dL (1.3-4.6) 07/01/24 02:41 Lipase 10 U/L (13-60) L 07/01/24 02:41 Procalcitonin 3.72 ng/mL (0-0.5) H 07/01/24 02:41 Urine Color Yellow (Yellow) 06/29/24 09:40 Urine Appearance Cloudy (CLEAR) A 06/29/24 09:40 Urine pH 5.0 (5-7) 06/29/24 09:40 Ur Specific [place] 1.017 (1.005-1.030) 06/29/24 09:40 Urine Protein Negative (Negative) 06/29/24 09:40 Urine Glucose (UA) Negative (Normal) 06/29/24 09:40 Urine Ketones Negative (Negative) 06/29/24 09:40 Urine Blood 1+ (Negative) A 06/29/24 09:40 Urine Nitrate Negative (Negative) 06/29/24 09:40 Urine Bilirubin Negative (Negative) 06/29/24 09:40 Urine Urobilinogen 1.0 mg/dL (Negative) 06/29/24 09:40 Ur Leukocyte Esterase Trace (Negative) A 06/29/24 09:40 Urine RBC 6-10 /hpf (0-2) 06/29/24 09:40 Urine WBC 0-5 /hpf (0-5) 06/29/24 09:40 Ur Squamous Epith Cells 11-20 /hpf (0-5) 06/29/24 09:40 Amorphous Sediment Not Reportable 06/29/24 09:40 Urine Bacteria 3+ /hpf (NONE) H 06/29/24 09:40 Hyaline Casts 0.81 /lpf 06/29/24 09:40 Urine HCG, Qual Negative (Negative) 06/27/24 12:08 Vancomycin Trough 7.5 ug/mL (10-15) L 06/30/24 11:57 A&P Assessment and plan (1) E. coli bacteremia: (2) Abscess, perianal: (3) Acute appendicitis: Plan 39-year-old lady with perianal abscess and acute appendicitis admitted on 06/27/2024. Blood culture positive for E. coli from 06/27/2024. Blood culture cleared as of 06/29/2024. Status post I&D of the buttock abscess on 06/27/2024. Status post appendectomy on 06/29/2024. Perianal abscess cultures with growth of Bacteroides fragilis and strep anginosus group. Mostabscess cultures from 1129 (?Appendix, intra-abdominal pus) with preliminary gram-negative rods pending final identification. Leukocytosis resolved as of 06/30/2024. Pro-Evert downtrending. She was on treatment with piperacillin/tazobactam between 1127 until today and linezolid 600mg BID 06/29-07/02. Plan: Given sensitivity of the E. coli isolate and strep anginosus , transition treatment to ceftriaxone 1 g IV every 24 hours plus metronidazole 500 mg oral 3 times daily for anaerobic coverage. Can d/c linezolid given no evidence of MRSA or enterococcal involvement on culture. Recommend duration to be at least 2 weeks from clearance of bacteremia and last surgical intervention (06/29-07/12). Further course of antibiotics to be decided based on clinical response in outpatient follow-up. Place PICC line to facilitate above Consult Attestations Medical Necessity Statement: per admitting Coding Level of Care Code Acute Code for Chg Fwd High MDM includes number and complexity of problems actively addressed during encounter, amount and/or complexity of data reviewed/ordered and described risk of complication, morbidity or mortality of management as documented Diagnoses E. coli bacteremia R78.81; B96.20 Abscess, perianal K61.0 Acute appendicitis K35.80
--- NOTE | 2024-07-02 14:36 | P.PN_ITS ---
Subjective 2 Subjective: Patient was seen this morning, she is sitting up in a chair, was able to ambulate, she had a bowel movement she thinks this morning, is passing gas she continues to have abdominal pain, throughout her abdomen, she feels nauseous this morning, she thinks that she overall feels better but does report feeling down given her slow clinical progress, denies any suicidal ideation, denies any homicidal ideation, nursing staff over the night were worried about her as she had acted confused, and was incontinent in bed, patient tells me that she noticed that overnight, she does report feeling anxious, feeling down given everything that has gone on, she does not want to put all this pressure on her family and burden be a burden on her family, but denies seeing or hearing things are not there, denies any suicidal ideation, denies homicidal ideation Vitals/I&O/Wt Last Vital Signs Temp 97.5 F L 07/02/24 11:46 Pulse 68 07/02/24 11:46 Resp 18 07/02/24 11:46 BP 162/91 07/02/24 11:46 Pulse Ox 96 07/02/24 11:46 O2 Del Method Room Air 07/02/24 11:46 O2 Flow Rate 6 06/27/24 15:20 07/01/24 07/02/24 07/02/24 22:59 06:59 14:59 Intake Total 1731.667 / 3441.667 1050 / 4491.667 1140 / 1140 Output Total 35 / 35 Balance 1731.667 / 3441.667 1015 / 4456.667 1140 / 1140 Weight last 48 hrs Weight 85.91 kg Weight 84.595 kg Physical Exam 2 Const: COMMON NORMALS: no acute distress and patient oriented x3 Resp: COMMON NORMALS: normal respiratory effort, No retractions, No use of accessory muscles and clear to auscultation bilaterally AUSCULTATION: clear to auscultation bilaterally Cardio: COMMON NORMALS: regular rate, regular rhythm, S1 normal heart sound present and S2 normal heart sound present RATE: regular rate RHYTHM: r egular rhythm HEART SOUNDS: S1 normal heart sound present and S2 normal heart sound present GI: COMMON NORMALS: Normal to inspection, nondistended, normoactive bowel sounds present and non-tender Extremity: COMMON NORMALS: no pedal edema Neuro: COMMON NORMALS: patient oriented x3 Psych: COMMON NORMALS: mental status grossly normal Urinary Catheter Management: Quijano: Cath Placed During This Visit: yes, but has since been removed by the nurse Reason for Continuing Indwelling Catheter: Decision to DC Catheter Urinary Catheter Date of Insertion: 06/29/24 Urinary Catheter Time of Insertion: 22:53 Date Urinary Catheter Removed: 06/30/24 Time Urinary Catheter Discontinued: 10:42 Data 07/02/24 05:16 07/02/24 05:16 Micro: Microbiology 06/29/24 18:23 Gram Stain - Final Abdomen Anaerobic Culture - Preliminary Abscess Culture - Preliminary Gram Negative Rods 06/27/24 14:35 Gram Stain - Final Buttock Anaerobic Culture - Preliminary Bacteroides fragilis Abscess Culture - Final Strep anginosus group 06/27/24 14:30 Gram Stain - Final Buttock Anaerobic Culture - Preliminary Bacteroides fragilis Abscess Culture - Final Strep anginosus group 06/27/24 09:10 Gram Stain - Final Buttock Wound Culture - Final Strep anginosus group A&P Assessment and plan (1) E. coli bacteremia: (2) Abscess, perianal: (3) Fibroid uterus: (4) Acute appendicitis: (5) Sepsis: Plan Left-sided perianal abscess CT/CT abdomen pelvis w con* [id number] IMPRESSION: 1. Midline to left-sided Perianal abscess, as described above. Adjacent severe edema, fluid and air bubbles extending into the posterior left gluteal deep subcutaneous tissues. Recommend surgical consultation. -Patient's status post incision and drainage, in the emergency room -Status post incision and drainage in the OR by Dr. Jaylene Romo, measuring 7 x 7 x 5 cm, Plan ? Abscess cultures anaerobic gram-negative rods, strep species -Continue IV antibiotics, rocephin, po flagyl -Continue wound care Acute appendicitis Right lower quadrant pain -CT scan this morning shows Liver: There is diffuse fatty infiltration of the liver. The liver is otherwise normal. Gallbladder and biliary ducts: There is layering hyperdensity within the gallbladder. This could reflect vicarious excretion of contrast which is layering within the gallbladder or possibly sludge. No pericholecystic inflammatory change is identified. Pancreas: Normal. No ductal dilation. Spleen: Normal. No splenomegaly. Adrenal glands: Normal. No mass. Kidneys and ureters: Small nonobstructing renal calculus is noted on the left. The kidneys otherwise have a normal noncontrast appearance. Stomach and bowel: Unremarkable. No obstruction. No mucosal thickening. Appendix: There is dilatation of the appendix with adjacent wall thickening and periappendiceal fat stranding compatible with appendicitis. Status post ruptured acute appendicitis with peritonitis, status post laparoscopic appendecto Plan -Currently MARIAMA drain in place, serosanguineous output, -Continue IV antibiotics, rocephin, po flagyl E. coli bacteremia, -CRP 139.3, Pro-Evert 14.36 -Source -Left-sided perianal abscess -Possible UTI given patient's symptoms of dysuria - appendicitis -Await sensitivity, continue Zosyn -Repeat blood cultures negative so far -E. coli is resistant to Cipro will likely need Rocephin for 2 weeks, placed orders for midline once repeat blood cultures are negative tomorrow Acute kidney injury, improving -Likely multifactorial from sepsis, bacteremia, contrast-induced nephropathy, dehydration -oral hydration -Monitor urine output closely Full code Lovenox for DVT prophylaxis tonight Plan scalate antibiotic therapy, up out of bed, pain control control Attestations 2 Medical Necessity Statement*: patient requires hospitalization for Left sided peianal abscess, acute appendicitis, ecoli bacteremia Diagnoses E. coli bacteremia R78.81; B96.20 Abscess, perianal K61.0 Fibroid uterus D25.9 Acute appendicitis K35.80 Sepsis A41.9
--- NOTE | 2024-07-02 14:56 | PICC.NOTE ---
Midline placed to left brachial vein. Referred to vascular access nurse for midline placement due to need for IV antibiotics x 11 days. Risks and benefits discussed and informed consent obtained from pt. Right arm assessed with no viable veins noted. Left arm assessed with left brachial vein measuring 4.2 mm, straight, and apparent best choice for placement. Using sterile technique and MST, left brachial vein accessed x 1 stick. Mid-arm circumference measured 10 cm from left AC 32 cm. Trimmed cath 10 cm with 1 cm external length noted. Line secured with stat-lock. Insertion site covered with Biopatch and TSM. Report given to bedside nurse, RAHUL Suárez.
[2024-07-02] MEDS: pantoprazole 40 mg SDV IVP (16:44)
--- NOTE | 2024-07-02 19:18 | PC.NURSE ---
Dressing to rectum changed x3 today. Tolerated well. Taught how to change dressing for home.
[2024-07-02] MEDS: enoxaparin 40 mg/0.4 mL Syringe SUBCUT (22:44)
[2024-07-03] VITALS (9 sets, daily range): BP systolic 110–132; BP diastolic 64–85; PULSE 75–89; RESP 16–17; TEMP 36.4–36.9; O2SAT 94–97
[2024-07-03] MEDS: acetaminophen 325 mg Tablet 650 MG PO ×4 (03:19→23:11)
[2024-07-03] MEDS: ondansetron 2 mg/ML SDV 2 mL 4 MG IVP ×3 (04:09→23:16)
[2024-07-03 06:30] LABS: Basophils # 0.1 10^3/uL (0.0-0.1); Basophils % 0.4 %; Eosinophils # 0.2 10^3/uL (0.0-0.8); Lymphocytes # 1.5 10^3/uL (0.8-4.8); Lymphocytes % 13.2 %; Mean Corpuscular HGB Conc 31.3 g/dL (30-55); Mean Corpuscular Hemoglobin 27.5 pg (27-33); Mean Corpuscular Volume 87.8 fl (85-98); Mean Platelet Volume 8.6 fL (7.4-10.4); Monocytes # 0.5 10^3/uL (0.2-0.9); Monocytes % 4.6 %; Neutrophils # 8.54 10^3/uL (1.8-7.7); Neutrophils % 75.9 %; Nucleated Red Blood Cells % 0 %; Platelet Count 405 10^3/cmm (157-399); Red Blood Count 3.53 10^6/uL (3.85-5.65); Red Cell Distribution Width 14.3 % (12.1-15.1); White Blood Count 11.27 10^3/uL (3.29-11.43)
[2024-07-03 06:51] LABS: Anion Gap 17.2 (5-19); Blood Urea Nitrogen 11 mg/dL (6-20); Calcium 8.6 mg/dL (8.5-10.5); Carbon Dioxide 22 mmol/L (22-29); Chloride 104 mmol/L (98-107); Creatinine Clr Calc Pharmacy 74.9578; Glomerular Filtration Rate 55.6 mL/min (90-130); Glucose 92 mg/dL (65-115); Osmolality Calculated 289 mOsm/kg (285-295); Potassium 3.2 mmol/L (3.5-5.1); Sodium 140 mmol/L (136-145)
[2024-07-03] MEDS: metroNIDAZOLE 500 MG Tablet PO ×3 (08:41→23:11)
[2024-07-03] MEDS: potassium chloride ER 20 mEq Tablet 40 MEQ PO (08:41)
[2024-07-03] MEDS: cefTRIAXone 1,000 mg SDV 1000 MG IVP (08:41)
[2024-07-03] MEDS: docusate sodium 100 mg Capsule PO ×2 (08:41→17:38)
[2024-07-03] MEDS: scopolamine 1.5 Patch 1 PATCH TRANSDERMA (10:33)
[2024-07-03] MEDS: oxyCODONE 5 mg IR Tab/Cap PO ×2 (10:34→23:14)
--- NOTE | 2024-07-03 10:36 | P.PN_ITS ---
Subjective 2 Subjective: Clinically doing better no abdominal pain having bowel movements and passing gas, but she continues to complain of persistent nausea. This has been able to be controlled by medication but she is still not feeling 100% well. Vitals/I&O/Wt Last Vital Signs Temp 98.3 F 07/03/24 07:58 Pulse 85 07/03/24 10:33 Resp 17 07/03/24 10:34 BP 127/71 07/03/24 10:33 Pulse Ox 94 07/03/24 07:58 O2 Del Method Room Air 07/03/24 07:58 O2 Flow Rate 6 06/27/24 15:20 07/02/24 07/03/24 07/03/24 22:59 06:59 14:59 Intake Total 2099 Output Total Balance 2099 -2074 Weight last 48 hrs Weight 188 lb 14.4 oz Weight 189 lb 6.4 oz Physical Exam 2 GI: OTHER: Abdominal exam is benign abdomen soft nontender nondistended, output from the drain is serous. Urinary Catheter Management: Quijano: Cath Placed During This Visit: yes, but has since been removed by the nurse Reason for Continuing Indwelling Catheter: Decision to DC Catheter Urinary Catheter Date of Insertion: 06/29/24 Urinary Catheter Time of Insertion: 22:53 Date Urinary Catheter Removed: 06/30/24 Time Urinary Catheter Discontinued: 10:42 Data 07/03/24 06:04 07/03/24 06:04 Micro: Microbiology 06/29/24 18:23 Gram Stain - Final Abdomen Anaerobic Culture - Preliminary Abscess Culture - Final Escherichia coli 06/27/24 14:35 Gram Stain - Final Buttock Anaerobic Culture - Preliminary Bacteroides fragilis Abscess Culture - Final Strep anginosus group 06/27/24 14:30 Gram Stain - Final Buttock Anaerobic Culture - Preliminary Bacteroides fragilis Abscess Culture - Final Strep anginosus group A&P Assessment and plan (1) Abscess, perianal: (2) Acute appendicitis: Plan Patient is having good progression after I&D of perianal abscess and laparoscopic appendectomy for perforated acute appendicitis. Sepsis has resolved, bacteremia will be treated with 2 weeks of IV antibiotics. Kidney injury is improving. The MARIAMA drain was removed today as output has been low and is completely serous in nature. I reviewed the gluteal wound today and is completely healthy no evidence of purulence. I think at this point most likely her nausea is due to medication, we will watch her today and if she is stable she may be able to go home either this afternoon or tomorrow morning. Attestations 2 Medical Necessity Statement*: For discharge in the next 24 to 48 hours Coding Level of Care Code Acute Code for [facility] Fwd Diagnoses Abscess, perianal K61.0 Acute appendicitis K35.80
--- NOTE | 2024-07-03 14:38 | P.PN_ITS ---
Subjective 2 Subjective: Patient was seen this morning, family members at bedside, she continues to complain of feeling nauseous, feeling unwell, no fevers, no chills, abdominal pain is minimal she has had a bowel movement this morning she is on room air she was able to ambulate Vitals/I&O/Wt Last Vital Signs Temp 97.5 F L 07/03/24 12:00 Pulse 79 07/03/24 12:00 Resp 17 07/03/24 12:00 BP 132/85 07/03/24 12:00 Pulse Ox 95 07/03/24 12:00 O2 Del Method Room Air 07/03/24 12:00 O2 Flow Rate 6 06/27/24 15:20 07/02/24 07/03/24 07/03/24 22:59 06:59 14:59 Intake Total 960 / 2100 240 / 240 Output Total Balance 960 2099 -2074 240 / 240 Weight last 48 hrs Weight 85.684 kg Weight 85.91 kg Physical Exam 2 Const: COMMON NORMALS: no acute distress and patient oriented x3 Resp: COMMON NORMALS: normal respiratory effort, No retractions, No use of accessory muscles and clear to auscultation bilaterally AUSCULTATION: clear to auscultation bilaterally Cardio: COMMON NORMALS: regular rate, regular rhythm, S1 normal heart sound present and S2 normal heart sound present RATE: regular rate RHYTHM: r egular rhythm HEART SOUNDS: S1 normal heart sound present and S2 normal heart sound present GI: COMMON NORMALS: Normal to inspection, nondistended, normoactive bowel sounds present and non-tender OTHER: MARIAMA drain in place Extremity: COMMON NORMALS: no pedal edema Neuro: COMMON NORMALS: patient oriented x3 Psych: COMMON NORMALS: mental status grossly normal Urinary Catheter Management: Quijano: Cath Placed During This Visit: yes, but has since been removed by the nurse Reason for Continuing Indwelling Catheter: Decision to DC Catheter Urinary Catheter Date of Insertion: 06/29/24 Urinary Catheter Time of Insertion: 22:53 Date Urinary Catheter Removed: 06/30/24 Time Urinary Catheter Discontinued: 10:42 Data 07/03/24 06:04 07/03/24 06:04 Micro: Microbiology 06/27/24 14:30 Gram Stain - Final Buttock Anaerobic Culture - Preliminary Bacteroides fragilis Abscess Culture - Final Strep anginosus group 06/27/24 14:35 Gram Stain - Final Buttock Anaerobic Culture - Preliminary Bacteroides fragilis Abscess Culture - Final Strep anginosus group 06/29/24 18:23 Gram Stain - Final Abdomen Anaerobic Culture - Preliminary Abscess Culture - Final Escherichia coli A&P Assessment and plan (1) E. coli bacteremia: (2) Abscess, perianal: (3) Fibroid uterus: (4) Acute appendicitis: (5) Sepsis: Plan Left-sided perianal abscess CT/CT abdomen pelvis w con* [id number] IMPRESSION: 1. Midline to left-sided Perianal abscess, as described above. Adjacent severe edema, fluid and air bubbles extending into the posterior left gluteal deep subcutaneous tissues. Recommend surgical consultation. -Patient's status post incision and drainage, in the emergency room -Status post incision and drainage in the OR by Dr. Jaylene Romo, measuring 7 x 7 x 5 cm, Plan ? Abscess cultures anaerobic Bacteroides, strep species -Continue IV antibiotics, rocephin, po flagyl -Continue wound care Acute appendicitis Right lower quadrant pain -CT scan this morning shows Liver: There is diffuse fatty infiltration of the liver. The liver is otherwise normal. Gallbladder and biliary ducts: There is layering hyperdensity within the gallbladder. This could reflect vicarious excretion of contrast which is layering within the gallbladder or possibly sludge. No pericholecystic inflammatory change is identified. Pancreas: Normal. No ductal dilation. Spleen: Normal. No splenomegaly. Adrenal glands: Normal. No mass. Kidneys and ureters: Small nonobstructing renal calculus is noted on the left. The kidneys otherwise have a normal noncontrast appearance. Stomach and bowel: Unremarkable. No obstruction. No mucosal thickening. Appendix: There is dilatation of the appendix with adjacent wall thickening and periappendiceal fat stranding compatible with appendicitis. Status post ruptured acute appendicitis with peritonitis, status post laparoscopic appendecto Plan -Currently MARIAMA drain in place, serosanguineous output, -Continue IV antibiotics, rocephin, po flagyl E. coli bacteremia, -CRP 139.3, Pro-Evert 14.36 -Source -Left-sided perianal abscess -Possible UTI given patient's symptoms of dysuria - appendicitis -Await sensitivity, continue Zosyn -Repeat blood cultures negative so far -E. coli is resistant to Cipro will likely need Rocephin for 2 weeks, midline placed, Acute kidney injury, improving -Likely multifactorial from sepsis, bacteremia, contrast-induced nephropathy, dehydration -oral hydration -Monitor urine output closely Full code Lovenox for DVT prophylaxis tonight Plan scalate antibiotic therapy, up out of bed, pain control control Attestations 2 Medical Necessity Statement*: Patient requires hospitalization for acutely bacteremia, acute appendicitis, JONATHAN Diagnoses E. coli bacteremia R78.81; B96.20 Abscess, perianal K61.0 Fibroid uterus D25.9 Acute appendicitis K35.80 Sepsis A41.9
[2024-07-03] MEDS: pantoprazole 40 mg SDV IVP (15:24)
[2024-07-03 15:52] LABS: Anion Gap 18.1 (5-19); Blood Urea Nitrogen 11 mg/dL (6-20); Calcium 8.9 mg/dL (8.5-10.5); Carbon Dioxide 23 mmol/L (22-29); Chloride 101 mmol/L (98-107); Creatinine Clr Calc Pharmacy 68.7114; Glomerular Filtration Rate 50.3 mL/min (90-130); Glucose 97 mg/dL (65-115); Osmolality Calculated 287 mOsm/kg (285-295); Potassium 3.1 mmol/L (3.5-5.1); Sodium 139 mmol/L (136-145)
[2024-07-03] MEDS: enoxaparin 40 mg/0.4 mL Syringe SUBCUT (23:11)
[2024-07-04] VITALS: BP 99/63; PULSE 85; RESP 17; TEMP 36.8; O2SAT 95
[2024-07-04 04:00] VITALS: BP 131/68; PULSE 77; RESP 15; TEMP 36.4; O2SAT 94
[2024-07-04] MEDS: acetaminophen 325 mg Tablet 650 MG PO ×2 (05:34→09:23)
[2024-07-04 06:13] LABS: Basophils % 0.2 %; Eosinophils # 0.3 10^3/uL (0.0-0.8); Eosinophils % 3.2 %; Lymphocytes # 1.9 10^3/uL (0.8-4.8); Lymphocytes % 19.3 %; Mean Corpuscular HGB Conc 33.3 g/dL (30-55); Mean Platelet Volume 8.4 fL (7.4-10.4); Monocytes # 0.6 10^3/uL (0.2-0.9); Monocytes % 5.8 %; Neutrophils # 6.55 10^3/uL (1.8-7.7); Neutrophils % 68.3 %; Nucleated Red Blood Cells % 0 %; Platelet Count 425 10^3/cmm (157-399); Red Blood Count 3.45 10^6/uL (3.85-5.65); Red Cell Distribution Width 14.5 % (12.1-15.1)
[2024-07-04 06:32] LABS: C Reactive Protein 49.5 mg/L (0.0-4.9)
[2024-07-04 07:06] LABS: Anion Gap 16.3 (5-19); Blood Urea Nitrogen 11 mg/dL (6-20); Calcium 8.4 mg/dL (8.5-10.5); Carbon Dioxide 23 mmol/L (22-29); Chloride 102 mmol/L (98-107); Creatinine Clr Calc Pharmacy 74.8983; Glomerular Filtration Rate 55.6 mL/min (90-130); Glucose 100 mg/dL (65-115); Osmolality Calculated 285 mOsm/kg (285-295); Potassium 3.3 mmol/L (3.5-5.1); Sodium 138 mmol/L (136-145)
[2024-07-04 07:13] LABS: Procalcitonin 0.75 ng/mL (0-0.5)
[2024-07-04 08:00] VITALS: BP 126/83; PULSE 82; RESP 16; TEMP 36.8; O2SAT 97
[2024-07-04] MEDS: ondansetron 2 mg/ML SDV 2 mL 4 MG IVP (08:00)
--- NOTE | 2024-07-04 08:13 | P.PN_ITS ---
Subjective 2 Subjective: Patient has been doing well during the last 24 hours, tolerating diet passing gas having several bowel movements. Still having some nausea but otherwise she is in good spirits. Vitals/I&O/Wt Last Vital Signs Temp 97.5 F L 07/04/24 04:00 Pulse 77 07/04/24 04:00 Resp 15 07/04/24 04:00 BP 131/68 07/04/24 04:00 Pulse Ox 94 07/04/24 04:00 O2 Del Method Room Air 07/04/24 04:00 O2 Flow Rate 6 06/27/24 15:20 07/03/24 07/04/24 07/04/24 22:59 06:59 14:59 Intake Total 840 / 1080 480 / 1560 Balance 840 / 1080 480 / 1560 Weight last 48 hrs Weight 188 lb 9.6 oz Weight 188 lb 14.4 oz Physical Exam 2 GI: OTHER: Abdomen is soft nontender nondistended, surgical incisions covered with Dermabond. : OTHER: No evidence of purulence around the dressing site. Urinary Catheter Management: Quijano: Cath Placed During This Visit: yes, but has since been removed by the nurse Reason for Continuing Indwelling Catheter: Decision to DC Catheter Urinary Catheter Date of Insertion: 06/29/24 Urinary Catheter Time of Insertion: 22:53 Date Urinary Catheter Removed: 06/30/24 Time Urinary Catheter Discontinued: 10:42 Data 07/04/24 05:53 07/04/24 05:53 Micro: Microbiology 06/27/24 14:30 Gram Stain - Final Buttock Anaerobic Culture - Preliminary Bacteroides fragilis Abscess Culture - Final Strep anginosus group 06/27/24 14:35 Gram Stain - Final Buttock Anaerobic Culture - Preliminary Bacteroides fragilis Abscess Culture - Final Strep anginosus group 06/29/24 18:23 Gram Stain - Final Abdomen Anaerobic Culture - Preliminary Abscess Culture - Final Escherichia coli A&P Assessment and plan (1) Abscess, perianal: (2) Acute appendicitis: (3) Acute kidney injury: (4) Sepsis: (5) E. coli bacteremia: Plan Patient is showing good progression after laparoscopic appendectomy for perforated acute appendicitis and I&D of perianal abscess, she has continued to receive IV antibiotics due to bacteremia, she is doing okay tolerating diet having bowel movements and passing gas, only concern is persistent nausea but despite the nausea she has been able to eat and has not have any vomiting at all. The abdominal exam is completely benign. Her white count is normal. Creatinine has improved is 1.1 today. CRP has consistently trended down. As well as procalcitonin. From my standpoint patient is okay to transition to the outpatient setting we will follow-up with the medical team regarding the recommendations before deciding on discharge. Attestations 2 Medical Necessity Statement*: Possible discharge today or tomorrow. Coding Level of Care Code Acute Code for [facility] Fwd Diagnoses Abscess, perianal K61.0 Acute appendicitis K35.80 Acute kidney injury N17.9 Sepsis A41.9 E. coli bacteremia R78.81; B96.20
[2024-07-04] MEDS: cefTRIAXone 1,000 mg SDV 1000 MG IVP (09:24)
[2024-07-04] MEDS: metroNIDAZOLE 500 MG Tablet PO (09:24)
[2024-07-04] MEDS: docusate sodium 100 mg Capsule PO (09:24)
--- NOTE | 2024-07-04 10:44 | P.DS_ITS ---
Discharge Providers Date of Admission: 06/27/24 11:48 Date of Discharge: July 04, 2024 Attending Provider at Admission: Michael Rogers MD Attending Provider at Discharge: Michael Rogers MD Primary Care Provider: Jonathon Gil MD Diagnoses at Discharge Discharge Diagnosis (1) Abscess, perianal: Status: Acute (2) Acute appendicitis: Status: Acute (3) Acute kidney injury: Status: Acute (4) Sepsis: Status: Acute (5) E. coli bacteremia: Status: Acute Reason for Visit Reason for Visit: Poss UTI Hospital Course Hospital Course This is a 39-year-old female who presented to the hospital with perianal pain fever and chills, patient was noted to have a left perianal abscess that was initially I&D in the ER but due to very large amount of purulence a CT scan was obtained and showed evidence of a persistent perianal abscess pocket and an incidental finding of possible acute appendicitis. At the moment of evaluation patient did not have any abdominal pain or GI symptoms. She was taken to the OR for I&D of perianal abscess that was done without complications, patient was noted to be septic before going to the operating room and was started on IV antibiotics, she was noted to be bacteremic once blood cultures were drawn. On hospital day 2 she started complaining of abdominal pain and therefore we decided to repeat CT scan of the abdomen and pelvis which showed persistent acute appendicitis and now there was some free fluid in the right paracolic gutter therefore I decided to proceed to the OR for laparoscopic appendectomy, laparoscopic appendectomy was done and show evidence of perforated acute appendicitis. Patient has been doing well since then, tolerating diet having bowel function no abdominal pain, IntraOp peritoneal drain was removed on hospital day 3 and had serous output. White count has been normal procalcitonin and CRP trended down. Patient will be discharged home on 2 weeks of IV antibiotics as guided by infectious diseases at medical team, she will follow-up with me in 2 weeks. Physical Exam GI: OTHER: Abdomen is soft, nontender, nondistended, surgical incisions are covered with Dermabond. : OTHER: Gluteal wound is healing well, no evidence of purulence. Urinary Catheter Management: Quijano: Cath Placed During This Visit: yes, but has since been removed by the nurse Reason for Continuing Indwelling Catheter: Decision to DC Catheter Urinary Catheter Date of Insertion: 06/29/24 Urinary Catheter Time of Insertion: 22:53 Date Urinary Catheter Removed: 06/30/24 Time Urinary Catheter Discontinued: 10:42 Discharge Data Studies Completed and Pending Completed Studies During Hospitalization Category Date Time Status CT abdomen pelvis w con* [id number] Stat Cat Scan 06/27/24 09:[address] abdomen pelvis wo con [id number] Stat Cat Scan 06/29/24 11:06 Completed US renal BI* [id number] Routine Ultrasound 06/29/24 11:06 Completed Pending at discharge Category Date Time Status Abscess Culture and Gram Stain Routine Lab 06/27/24 14:30 Results Abscess Culture and Gram Stain Routine Lab 06/27/24 14:35 Results Abscess Culture and Gram Stain Routine Lab 06/29/24 18:23 Results Anaerobic Culture Routine Lab 06/27/24 14:30 Results Anaerobic Culture Routine Lab 06/27/24 14:35 Results Anaerobic Culture Routine Lab 06/29/24 18:23 Results Basic Metabolic Panel AM LABS Lab 07/05/24 04:00 Ordered Basic Metabolic Panel AM LABS Lab 07/06/24 04:00 Ordered Blood Culture Stat Lab 06/29/24 14:15 Results Complete Blood Count w/Auto AM LABS Lab 07/05/24 04:00 Ordered Complete Blood Count w/Auto AM LABS Lab 07/06/24 04:00 Ordered Pathology: Surgical [PTH] Routine Pth 06/29/24 19:46 Received Radiology Impressions Abdomen/Pelvis CT 06/29/24 11:06 IMPRESSION: 1. Appendicitis. 2. Trace free fluid within the right paracolic gutter. 3. Please see above comments for additional details. ADDENDUM: 06/29/24 1153 COMMENT: THIS REPORT CONTAINS FINDINGS THAT MAY BE CRITICAL TO PATIENT CARE. The exam findings were verbally communicated by me to Dr. Rogers via telephone conference at 11:50 AM OPTICAL ENGINEERING TECHNICIAN on 06/29/2024. The findings were acknowledged and understood. Renal Ultrasound 06/29/24 11:06 IMPRESSION: Normal renal ultrasound. Laboratory Results WBC 9.60 10^3/uL (3.29-11.43) 07/04/24 05:53 RBC 3.45 10^6/uL (3.85-5.65) L 07/04/24 05:53 Hgb 10.00 g/dL (11.27-16.99) L 07/04/24 05:53 Hct 30.0 % (36-47) L 07/04/24 05:53 MCV 87.0 fl (85-98) 07/04/24 05:53 MCH 29.0 pg (27-33) 07/04/24 05:53 MCHC 33.3 g/dL (30-55) D 07/04/24 05:53 RDW 14.5 % (12.1-15.1) 07/04/24 05:53 Plt Count 425 10^3/cmm (157-399) H 07/04/24 05:53 MPV 8.4 fL (7.4-10.4) 07/04/24 05:53 Neut % (Auto) 68.3 % 07/04/24 05:53 Lymph % (Auto) 19.3 % 07/04/24 05:53 [place] % (Auto) 5.8 % 07/04/24 05:53 Eos % (Auto) 3.2 % 07/04/24 05:53 Baso % (Auto) 0.2 % 07/04/24 05:53 Neut # (Auto) 6.55 10^3/uL (1.8-7.7) 07/04/24 05:53 Lymph # (Auto) 1.9 10^3/uL (0.8-4.8) 07/04/24 05:53 [place] # (Auto) 0.6 10^3/uL (0.2-0.9) 07/04/24 05:53 Eos # (Auto) 0.3 10^3/uL (0.0-0.8) 07/04/24 05:53 Baso # (Auto) 0.0 10^3/uL (0.0-0.1) 07/04/24 05:53 Nucleated RBC % (auto) 0 % 07/04/24 05:53 Total Counted 100 (0-100) 06/28/24 04:48 Atypical Lymphs % 0.0 % (0-5) 06/28/24 04:48 Absolute Neutrophils 13.8 10^3/cmm (1.4-6.5) H 06/28/24 04:48 Segmented Neutrophils 59 % 06/28/24 04:48 Band Neutrophils 37.0 % 06/28/24 04:48 Absolute Lymphocytes 0.6 10^3/cmm (1.2-3.4) L 06/28/24 04:48 Lymphocytes (Manual) 4 % 06/28/24 04:48 Monocytes (Manual) 0.0 % 06/28/24 04:48 Absolute Monocytes 0.0 10^3/cmm (0.1-0.6) L 06/28/24 04:48 Eosinophils (Manual) 0 % 06/28/24 04:48 Absolute Eosinophils 0.0 10^3/cmm (0.0-0.7) 06/28/24 04:48 Basophils (Manual) 0.0 % 06/28/24 04:48 Absolute Basophils 0.0 10^3/cmm (0.0-0.2) 06/28/24 04:48 Nucleated RBCs # 0.0 /100WBC 07/04/24 05:53 Platelet Estimate Normal (Normal) 06/28/24 04:48 Sodium 138 mmol/L (136-145) 07/04/24 05:53 Potassium 3.3 mmol/L (3.5-5.1) L 07/04/24 05:53 Chloride 102 mmol/L (98-107) 07/04/24 05:53 Carbon Dioxide 23 mmol/L (22-29) 07/04/24 05:53 Anion Gap 16.3 (5-19) 07/04/24 05:53 BUN 11 mg/dL (6-20) 07/04/24 05:53 Creatinine 1.1 mg/dL (0.5-0.9) H 07/04/24 05:53 GFR Calculation 55.6 mL/min (90-130) L 07/04/24 05:53 Glucose 100 mg/dL (65-115) 07/04/24 05:53 Calculated Osmolality 285 mOsm/kg (285-295) 07/04/24 05:53 Calcium 8.4 mg/dL (8.5-10.5) L 07/04/24 05:53 Phosphorus 4.6 mg/dL (2.5-4.5) H 06/30/24 04:46 Magnesium 2.0 mg/dL (1.7-2.3) 06/30/24 04:46 Total Bilirubin 0.2 mg/dL (0.15-1.2) 07/01/24 02:41 Direct Bilirubin 0.20 mg/dL (0.00-0.30) 07/01/24 02:41 GGT 133 U/L (5-36) H 07/01/24 02:41 AST 21 U/L (0-32) 07/01/24 02:41 ALT 28 U/L (0-33) 07/01/24 02:41 Alkaline Phosphatase 92 U/L (35-105) 07/01/24 02:41 Creatine Kinase 37 U/L (26-192) 07/01/24 02:41 C-Reactive Protein 49.5 mg/L (0.0-4.9) H 07/04/24 05:53 Total Protein 4.3 g/dL (6.6-8.7) L 07/01/24 02:41 Albumin 2.5 g/dL (3.5-5.2) L 07/01/24 02:41 Globulin 1.8 g/dL (1.3-4.6) 07/01/24 02:41 Lipase 10 U/L (13-60) L 07/01/24 02:41 Procalcitonin 0.75 ng/mL (0-0.5) H 07/04/24 05:53 Urine Color Yellow (Yellow) 06/29/24 09:40 Urine Appearance Cloudy (CLEAR) A 06/29/24 09:40 Urine pH 5.0 (5-7) 06/29/24 09:40 Ur Specific [place] 1.017 (1.005-1.030) 06/29/24 09:40 Urine Protein Negative (Negative) 06/29/24 09:40 Urine Glucose (UA) Negative (Normal) 06/29/24 09:40 Urine Ketones Negative (Negative) 06/29/24 09:40 Urine Blood 1+ (Negative) A 06/29/24 09:40 Urine Nitrate Negative (Negative) 06/29/24 09:40 Urine Bilirubin Negative (Negative) 06/29/24 09:40 Urine Urobilinogen 1.0 mg/dL (Negative) 06/29/24 09:40 Ur Leukocyte Esterase Trace (Negative) A 06/29/24 09:40 Urine RBC 6-10 /hpf (0-2) 06/29/24 09:40 Urine WBC 0-5 /hpf (0-5) 06/29/24 09:40 Ur Squamous Epith Cells 11-20 /hpf (0-5) 06/29/24 09:40 Amorphous Sediment Not Reportable 06/29/24 09:40 Urine Bacteria 3+ /hpf (NONE) H 06/29/24 09:40 Hyaline Casts 0.81 /lpf 06/29/24 09:40 Urine HCG, Qual Negative (Negative) 06/27/24 12:08 Vancomycin Trough 7.5 ug/mL (10-15) L 06/30/24 11:57 Vitals Last Vital Signs Temp 98.3 F 07/04/24 08:00 Pulse 82 07/04/24 08:00 Resp 16 07/04/24 08:00 BP 126/83 07/04/24 08:00 Pulse Ox 97 07/04/24 08:00 O2 Del Method Room Air 07/04/24 08:00 O2 Flow Rate 6 06/27/24 15:20 Discharge Plan Discharge Patient Disposition: Home Condition: Stable Prescriptions: New ceftriaxone 1 gram Recon Soln 1,000 mg IVP Q24H 14 Days Qty: 22 0RF Rx Instructions: start 06/29/2024 stop 07/12/2024 docusate sodium 100 mg Capsule 100 mg PO BID 30 Days Qty: 60 0RF metronidazole 500 mg Tablet 500 mg PO TID 9 Days Qty: 27 0RF scopolamine base [Transderm-Scop] 1 mg over 3 days Patch 3 Day 1 patch transdermal Q3D PRN (Reason: nausea) 9 Days Qty: 3 0RF ondansetron 4 mg tablet,disintegrating 4 mg PO Q6H PRN (Reason: nausea and vomiting) 7 Days Qty: 28 0RF oxycodone 5 mg tablet 5 mg PO Q8H PRN (Reason: pain) 7 Days Qty: 20 0RF Continued Proctofoam HC 1-1 % foam 1 applic [place] QID PRN (Reason: itching) Qty: 10 0RF Preparation H (pe) 0.25 % suppository 1 supp [place] BID PRN (Reason: hemorrhoids) Qty: 12 0RF medroxyprogesterone [Depo-Provera] 150 mg/mL suspension 150 mg IM .every 10-12 weeks Qty: 1 3RF Discharge Orders: Discharge Order (Routine); Ordered 07/04/24 Ordered By: David Davies Other Ambulatory Orders: Miscellaneous Procedure (Order) Location: None Selected Ordered By: David Davies Referrals: [facility] Infusion Center [Outside] ([facility] need [facility] infusion at 12pm on 07/05/24, and then they will schedule the rest, and then to Outpatient Surgery on Tuesday and Tuesday at 1130am ) Jonathon Gil MD [Primary Care Provider] - (We have notified your physician's clinic of the need for a follow-up appointment to be scheduled. If you have not heard from them within the next 2 business days, please call them directly. ) Michael Rogers MD [Physician] - 2 weeks (We have notified your physician's clinic of the need for a follow-up appointment to be scheduled. If you have not heard from them within the next 2 business days, please call them directly. ) Stacey Nathan MD [Hospitalist] - 1 week (We have notified your physician's clinic of the need for a follow-up appointment to be scheduled. If you have not heard from them within the next 2 business days, please call them directly. ) [facility], [Staff Physician] - (We have notified your physician's clinic of the need for a follow-up appointment to be scheduled. If you have not heard from them within the next 2 business days, please call them directly. ) Discharge Diet: As Directed Discharge Activity: Resume usual activity Patient Instructions: Opioid Safety Activity Restrictions/Additional Instructions: - Please ambulate with care -Please monitor for calf pain or calf swelling if so go to emergency room -Please take antibiotics as prescribed -As for your IV Rocephin 1 g every 24 hours, stop date 07/12/2024, can remove midline thereafter -Take Flagyl as prescribed -Can use scopolamine patch as needed for nausea, vomiting -Zofran for breakthrough nausea vomiting -If you have any fevers, recurrent abdominal pain, lack of stooling please go to the emergency room -For your perianal abscess continue dressing changes daily, follow-up with wound care -Follow-up with Dr. Rogers Discharge Attestations Time Spent in Discharge Care*: less than 30 min Quality Metrics Clinical Quality Measures [ No reported AMI, CVA or VTE this stay] Coding Level of Care Code Acute Code for [facility] Fwd Diagnoses Abscess, perianal K61.0 Acute appendicitis K35.80 Acute kidney injury N17.9 Sepsis A41.9 E. coli bacteremia R78.81; B96.20
--- NOTE | 2024-07-04 10:45 | P.PN_ITS ---
Subjective 2 Subjective: Patient was seen this morning, no fevers overnight, no vomiting she does feel nauseous but the scopolamine patch has helped, has had a bowel movement, she is ambulating, Vitals/I&O/Wt Last Vital Signs Temp 98.3 F 07/04/24 08:00 Pulse 82 07/04/24 08:00 Resp 16 07/04/24 08:00 BP 126/83 07/04/24 08:00 Pulse Ox 97 07/04/24 08:00 O2 Del Method Room Air 07/04/24 08:00 O2 Flow Rate 6 06/27/24 15:20 07/03/24 07/04/24 07/04/24 22:59 06:59 14:59 Intake Total 840 / 1080 480 / 1560 60 / 60 Balance 840 / 1080 480 / 1560 60 / 60 Weight last 48 hrs Weight 85.548 kg Weight 85.684 kg Physical Exam 2 Const: COMMON NORMALS: no acute distress and patient oriented x3 Resp: COMMON NORMALS: normal respiratory effort, No retractions, No use of accessory muscles and clear to auscultation bilaterally AUSCULTATION: clear to auscultation bilaterally Cardio: COMMON NORMALS: regular rate, regular rhythm, S1 normal heart sound present and S2 normal heart sound present RATE: regular rate RHYTHM: r egular rhythm HEART SOUNDS: S1 normal heart sound present and S2 normal heart sound present GI: COMMON NORMALS: Normal to inspection, nondistended, normoactive bowel sounds present and non-tender OTHER: MARIAMA drain removed Extremity: COMMON NORMALS: no pedal edema Neuro: COMMON NORMALS: patient oriented x3 Psych: COMMON NORMALS: mental status grossly normal Urinary Catheter Management: Quijano: Cath Placed During This Visit: yes, but has since been removed by the nurse Reason for Continuing Indwelling Catheter: Decision to DC Catheter Urinary Catheter Date of Insertion: 06/29/24 Urinary Catheter Time of Insertion: 22:53 Date Urinary Catheter Removed: 06/30/24 Time Urinary Catheter Discontinued: 10:42 Data 07/04/24 05:53 07/04/24 05:53 Micro: Microbiology 06/27/24 14:30 Gram Stain - Final Buttock Anaerobic Culture - Preliminary Bacteroides fragilis Abscess Culture - Final Strep anginosus group 06/27/24 14:35 Gram Stain - Final Buttock Anaerobic Culture - Preliminary Bacteroides fragilis Abscess Culture - Final Strep anginosus group 06/29/24 18:23 Gram Stain - Final Abdomen Anaerobic Culture - Preliminary Abscess Culture - Final Escherichia coli A&P Assessment and plan (1) E. coli bacteremia: (2) Abscess, perianal: (3) Fibroid uterus: (4) Acute appendicitis: (5) Sepsis: Plan Left-sided perianal abscess CT/CT abdomen pelvis w con* [id number] IMPRESSION: 1. Midline to left-sided Perianal abscess, as described above. Adjacent severe edema, fluid and air bubbles extending into the posterior left gluteal deep subcutaneous tissues. Recommend surgical consultation. -Patient's status post incision and drainage, in the emergency room -Status post incision and drainage in the OR by Dr. Jaylene Romo, measuring 7 x 7 x 5 cm, Plan ? Abscess cultures anaerobic Bacteroides, strep species -Continue IV antibiotics, rocephin stop 07/12, po flagyl stop 07/12 -Continue wound care Acute appendicitis Right lower quadrant pain -CT scan this morning shows Liver: There is diffuse fatty infiltration of the liver. The liver is otherwise normal. Gallbladder and biliary ducts: There is layering hyperdensity within the gallbladder. This could reflect vicarious excretion of contrast which is layering within the gallbladder or possibly sludge. No pericholecystic inflammatory change is identified. Pancreas: Normal. No ductal dilation. Spleen: Normal. No splenomegaly. Adrenal glands: Normal. No mass. Kidneys and ureters: Small nonobstructing renal calculus is noted on the left. The kidneys otherwise have a normal noncontrast appearance. Stomach and bowel: Unremarkable. No obstruction. No mucosal thickening. Appendix: There is dilatation of the appendix with adjacent wall thickening and periappendiceal fat stranding compatible with appendicitis. Status post ruptured acute appendicitis with peritonitis, status post laparoscopic appendecto Plan -Currently MARIAMA drain removed -Continue IV antibiotics, rocephin, po flagyl stop 07/12 E. coli bacteremia, -CRP 139.3, Pro-Evert 14.36 -Source -Left-sided perianal abscess -Possible UTI given patient's symptoms of dysuria - appendicitisr -E. coli is resistant to Cipro will likely need Rocephin for 2 weeks, midline placed, Acute kidney injury, improving -Likely multifactorial from sepsis, bacteremia, contrast-induced nephropathy, dehydration -oral hydration -Monitor urine output closely Full code Lovenox for DVT prophylaxis tonight Plan patient will be discharged today Attestations 2 Medical Necessity Statement*: Patient will be discharged today Diagnoses E. coli bacteremia R78.81; B96.20 Abscess, perianal K61.0 Fibroid uterus D25.9 Acute appendicitis K35.80 Sepsis A41.9
[2024-07-04 12:00] VITALS: BP 125/82; PULSE 80; RESP 18; TEMP 36.9; O2SAT 96
[2024-07-04 12:54] VITALS: BP 125/82; PULSE 80; RESP 18; TEMP 36.9; O2SAT 96
== END 2024-07-04 12:57 | disposition home or self-care (01) | DRG 853 ==
LOC: ER 10:40 → OR 10:44 → MEDSURG 11:49
PROVIDERS: Family Medicine; Student in an Organized Health Care Education/Training Program; Admitting Provider Surgery; Emergency Provider Emergency Medicine; PCP Obstetrics & Gynecology; Visit Provider Surgery
PROC: 0J990ZZ Drainage of Buttock Subcutaneous Tissue and Fascia, Open Approach (ICD-10-PCS; principal; 2024-06-27 12:00)
PROC: 0J990ZZ Drainage of Buttock Subcutaneous Tissue and Fascia, Open Approach (ICD-10-PCS; 2024-06-27 12:00)
PROC: 0DTJ4ZZ Resection of Appendix, Percutaneous Endoscopic Approach (ICD-10-PCS; CPT 44970; principal; 2024-06-29 17:50)
DX: A41.9 Sepsis, unspecified organism (principal); K35.32 Acute appendicitis with perforation, localized peritonitis, and gangrene, without abscess; K61.2 Anorectal abscess; N17.9 Acute kidney failure, unspecified; R65.20 Severe sepsis without septic shock; B96.20 Unspecified Escherichia coli [E. coli] as the cause of diseases classified elsewhere; D25.9 Leiomyoma of uterus, unspecified; Z87.440 Personal history of urinary (tract) infections; Z82.49 Family history of ischemic heart disease and other diseases of the circulatory system; Z83.3 Family history of diabetes mellitus
CPT/HCPCS: 36415; 36569; 51702; 74176; 74177; 76770; 80048; 80053; 80076; 80202; 81001; 81025; 82550; 82977; 83690; 83735; 84100; 84145; 85007; 85025; 86140; 87040; 87070; 87075; 87077; 87150; 87186; 87205; 88304; 96365; 96367; 96372; 99285; C1751; J0131; J0330; J0696; J1100; J1171; J1200; J1650; J1885; J2020; J2060; J2250; J2270; J2405; J2470; J2543; J2704; J2765; J3010; J3370; J3480; J3490; J7030; J7050; J7120

== ENCOUNTER 2024-07-12 11:30 | Oncology outpatient (recurring) (ONCR) | payer OTHER, SELFPAY ==
[2024-07-05] MEDS: cefTRIAXone 1,000 mg SDV 1000 MG IVP (12:21)
[2024-07-05 12:31] VITALS: BP 121/88; TEMP 36.3
[2024-07-06 10:57] VITALS: BP 134/90; PULSE 80; RESP 18; TEMP 36.2; O2SAT 94
[2024-07-06] MEDS: cefTRIAXone 1,000 mg SDV 1000 MG IVP (11:13)
[2024-07-07 11:38] VITALS: BP 129/93; PULSE 84; RESP 18; TEMP 36.2; O2SAT 98
[2024-07-07] MEDS: cefTRIAXone 1,000 mg SDV 1000 MG IVP (11:41)
[2024-07-08] MEDS: cefTRIAXone 1,000 mg SDV 1000 MG IVP (11:19)
[2024-07-08 11:34] VITALS: BP 132/96; PULSE 94; RESP 18; TEMP 37; O2SAT 94
[2024-07-09] MEDS: cefTRIAXone 1,000 mg SDV 1000 MG IVP (12:29)
[2024-07-09 12:51] VITALS: BP 135/89; TEMP 37
[2024-07-10] MEDS: cefTRIAXone 1,000 mg SDV 1000 MG IVP (12:02)
[2024-07-10 12:14] VITALS: BP 129/92; PULSE 77; TEMP 36.7; O2SAT 96
[2024-07-11] MEDS: cefTRIAXone 1,000 mg SDV 1000 MG IVP (11:39)
[2024-07-11 11:48] VITALS: BP 138/95; PULSE 83; RESP 16; TEMP 36.3; O2SAT 96
[2024-07-12 12:44] VITALS: BP 154/99; PULSE 84; TEMP 37.1; O2SAT 95
[2024-07-12] MEDS: cefTRIAXone 1,000 mg SDV 1000 MG IVP (12:49)
== END 2024-07-31 23:59 | disposition home or self-care (01) ==
PROVIDERS: PCP Obstetrics & Gynecology; Visit Provider Student in an Organized Health Care Education/Training Program
DX: K61.0 Anal abscess (principal); R78.81 Bacteremia; B96.20 Unspecified Escherichia coli [E. coli] as the cause of diseases classified elsewhere; Z79.899 Other long term (current) drug therapy; Z53.9 Procedure and treatment not carried out, unspecified reason
CPT/HCPCS: 96374; J0696

== ENCOUNTER 2024-07-15 15:58 | Emergency (ER) | payer OTHER, SELFPAY ==
[2024-07-15] VITALS (9 sets, daily range): BP systolic 128–147; BP diastolic 91–99; PULSE 90–105; RESP 18; TEMP 36.8; O2SAT 91–99
[2024-07-15 16:33] LABS: Basophils # 0.1 10^3/uL (0.0-0.1); Basophils % 0.4 %; Eosinophils # 0.1 10^3/uL (0.0-0.8); Eosinophils % 1.1 %; Hematocrit 35.2 % (36-47); Lymphocytes # 1.7 10^3/uL (0.8-4.8); Lymphocytes % 13.6 %; Mean Corpuscular HGB Conc 32.1 g/dL (30-55); Mean Corpuscular Volume 87.1 fl (85-98); Mean Platelet Volume 8.6 fL (7.4-10.4); Monocytes # 0.9 10^3/uL (0.2-0.9); Monocytes % 7.4 %; Neutrophils % 77.1 %; Nucleated Red Blood Cells % 0 %; Platelet Count 407 10^3/cmm (157-399); Red Blood Count 4.04 10^6/uL (3.85-5.65); Red Cell Distribution Width 15.2 % (12.1-15.1); White Blood Count 12.45 10^3/uL (3.29-11.43)
[2024-07-15 16:46] LABS: HCG, Serum Qual Negative (Negative)
[2024-07-15 16:55] LABS: Alanine Aminotransferase 14 U/L (0-33); Albumin Level 3.9 g/dL (3.5-5.2); Alkaline Phosphatase 102 U/L (35-105); Anion Gap 20.8 (5-19); Aspartate Amino Transferase 11 U/L (0-32); Blood Urea Nitrogen 8 mg/dL (6-20); Calcium 9.7 mg/dL (8.5-10.5); Carbon Dioxide 19 mmol/L (22-29); Chloride 106 mmol/L (98-107); Globulin 3.7 g/dL (1.3-4.6); Glomerular Filtration Rate 80.3 mL/min (90-130); Glucose 115 mg/dL (65-115); Lipase 14 U/L (13-60); Osmolality Calculated 293 mOsm/kg (285-295); Potassium 3.8 mmol/L (3.5-5.1); Sodium 142 mmol/L (136-145); Total Bilirubin 0.5 mg/dL (0.15-1.2); Total Protein 7.6 g/dL (6.6-8.7)
--- NOTE | 2024-07-15 17:47 | CTR_ITS ---
PROCEDURE INFORMATION: Exam: CT Abdomen And Pelvis With Contrast Exam date and time: 07/15/2024 6:10 PM Age: 39 years old Clinical indication: Abdominal pain; Epigastric; Prior surgery; Surgery date: <1 month; Surgery type: Tali anal abscess; Additional info: Post op abd pain; Large perianal abscess i d 1 week ago TECHNIQUE: Imaging protocol: Computed tomography of the abdomen and pelvis with contrast. Radiation optimization: All CT scans at this facility use at least one of these dose optimization techniques: automated exposure control; mA and/or kV adjustment per patient size (includes targeted exams where dose is matched to clinical indication); or iterative reconstruction. Contrast material: OMNIPAQUE 350; Contrast volume: 100 ml; Contrast route: INTRAVENOUS (IV); COMPARISON: CT abdomen pelvis wo con [id number] 06/29/2024 11:20 AM RADIATION DOSE METRICS: Total DLP (mGy-cm): 868.09 FINDINGS: Lungs: There is a filling defect within the superior mesenteric vein with surrounding reticulation of mesenteric fat consistent with superior mesenteric vein thrombosis. Liver: The liver is diffusely decreased in density, compatible with hepatic steatosis. Gallbladder and biliary ducts: Normal. No calcified stones. No ductal dilation. Pancreas: Normal. No ductal dilation. Spleen: Normal. No splenomegaly. Adrenal glands: Normal. No mass. Kidneys and ureters: There are multifocal areas of wedge shaped relative low attenuation cortices in both kidneys without hydronephrosis or calcification. Findings concerning for multifocal pyelonephritis. Stomach and bowel: Unremarkable. No obstruction. No mucosal thickening. Appendix: No evidence of appendicitis. Intraperitoneal space: Unremarkable. No free air. No significant fluid collection. Vasculature: Unremarkable. No abdominal aortic aneurysm. Lymph nodes: Unremarkable. No enlarged lymph nodes. Urinary bladder: Unremarkable as visualized. Reproductive: Unremarkable as visualized. Bones/joints: Unremarkable. No acute fracture. Soft tissues: There is a 1.6 cm irregular air and debris containing collection in the left posteromedial buttock extending towards the rectal anal junction which may represent the residual perianal abscess. CT/CT abdomen pelvis w con* [id number] IMPRESSION: 1. There is a filling defect within the superior mesenteric vein with surrounding reticulation of mesenteric fat consistent with superior mesenteric vein thrombosis. 2. Findings in the kidneys concerning for multifocal pyelonephritis. 3. Small 1.6 cm residual left perianal/buttock abscess.
[2024-07-15 17:58] LABS: Bilirubin Urine 1+ (Negative); Blood Urine 3+ (Negative); Glucose Urine UA Negative (Normal); Ketones Urine Trace (Negative); Leukocyte Esterase Urine 1+ (Negative); Nitrate Urine Positive (Negative); Protein Urine 1+ (Negative); Specific Gravity, Urine 1.021 (1.005-1.030); Urine Appearance Cloudy (CLEAR); Urine Color Dark Yellow (Yellow)
[2024-07-15 18:04] LABS: Add Urine Microscopic? YES; Bacteria Urine None Seen /hpf; Hyaline Casts Urine 3.71 /lpf; RBC Urine 51-100 /hpf (0-2); Squamous Epithelial Cell Urine 21-50 /hpf (0-5); Universal Test for UA Present (0)
[2024-07-15] MEDS: iohexol 350 mg/mL 500 mL Btl (per mL) IV (18:11)
[2024-07-15 18:15] LABS: Add Urine Culture? No; Mucus Urine 1+ /hpf
[2024-07-15] MEDS: sodium chloride 0.9% 1,000 ML 999 ML IV ×2 (18:22→21:50)
[2024-07-15] MEDS: ondansetron 2 mg/ML SDV 2 mL 4 MG IVP ×2 (18:43→22:17)
[2024-07-15] MEDS: fentaNYL 50 mcg/mL INJ 2mL 88.5 MCG IVP (18:43)
[2024-07-15] MEDS: pantoprazole 40 mg SDV IVP (18:45)
--- NOTE | 2024-07-15 19:17 | W.ED.ABDPA2 ---
Documented by User: LUZ Hightower 07/16/24 00:02 HPI - Abdominal Pain General: Chief Complaint: Abdominal Pain Stated Complaint: severe stomach pain, 1 week postop abd sx Time Seen by Provider: 07/15/24 17:45 History of Present Illness: Samantha Farmer is a 39-year-old female who presents to the emergency department with diffuse abdominal pain, nausea vomiting and softer stools. She reports that her stools are black and tarry. Onset of symptoms Tuesday. Her abdominal pain is originally waxed and waned but over the last 24 hours has become more consistent/constant and has worsened. She denies fever or chills She denies chest pain or shortness of breath She is 1 week status post admission for large perianal abscess that she was septic from. She has completed her antibiotics as prescribed?Flagyl and she is continue to take Oxy and docusate. Associated Symptoms: Reports bloating, GI cramping, diarrhea, dysuria, melena and nausea; Denies chills, constipation, fever(s), hematochezia, hematuria and vomiting Related Data Previous Rx's Medication Instructions Recorded medroxyprogesterone 150 mg/mL 150 mg IM .every 10-12 weeks #1 mL 09/06/23 intramuscular suspension (Depo-Provera) hydrocortisone 1 %-pramoxine 1 % 1 applic WA QID PRN itching #10 06/24/24 rectal foam (Proctofoam HC) grams phenylephrine HCl 0.25 % rectal 1 supp WA BID PRN hemorrhoids #12 06/24/24 suppository (Preparation H (pe)) ea ceftriaxone 1 gram solution for 1,000 mg IVP Q24H 2 weeks #22 ea 07/04/24 injection docusate sodium 100 mg capsule 100 mg PO BID 30 days #60 caps 07/04/24 Allergies Allergy/AdvReac Type Severity Reaction Status Date / Time No Known Allergies Allergy Verified 07/15/24 16:14 Review of Systems General: Reports: 10 or more systems reviewed and unremarkable except in HPI and below Const: Denies: fever(s), chills, change in appetite, change in weight, fatigue or malaise Card: Denies: chest pain, palpitations, irregular heart rhythm, edema, dyspnea on exertion, orthopnea or leg pain with exertion Resp: Denies: dyspnea, productive cough, non-productive cough, wheezing, stridor or chest congestion GI: Reports: abdominal pain, nausea, diarrhea, bloating, GI cramping and melena; Denies: vomiting, dysphagia, constipation or hematochezia : Reports: flank pain, dysuria, urinary urgency and oliguria; Denies: difficulty voiding, urinary frequency, urinary hesitancy or hematuria Musc: Denies: neck pain, back pain, extremity pain, joint pain, joint swelling, joint redness, joint warmth or muscle weakness Skin/Breast: Denies: rash, pruritus, erythema, photosensitivity or new lesions Neuro: Denies: headache(s), numbness in extremities, weakness in extremities, sensory changes, lack of coordination, difficulty walking, frequent falls, dizziness, confusion, Slurred speech present, difficulty communicating thoughts, seizure-like activity or involuntary movements Endo: Denies: polyuria, polydipsia or tired all the time Gama/Lymph: Denies: easy bruising or easy bleeding PFSH ED PFSH: Medical History No pertinent past medical history Denies diabetes, asthma, hypertension, seizures, DVT/PE PCP: Sees any of the providers at [facility] Surgical History Status post delivery 03/10/2021--primary low transverse delivery by Dr. Bowers at [facility] [place] lie. ---> No extensions, double layer closure Family History Brother Diabetes Father Heart disease Hypertension Grandmother Stroke Paternal Denies family history of Colon cancer Ovarian cancer Hyperlipidemia Breast cancer Uterine cancer Thyroid disease Social History Smoking and tobacco/nicotine status: never used tobacco/nicotine Second hand smoke exposure: No Alcohol intake: never Substance/Drug Use: never Physical Exam Const: COMMON NORMALS: no acute distress, patient oriented x3 and alert GENERAL APPEARANCE: cooperative ORIENTATION/CONSCIOUSNESS: Yes awake, Yes oriented to person, Yes oriented to place and Yes oriented to time HENMT: COMMON NORMALS: normocephalic and atraumatic HEAD & SCALP: normocephalic and atraumatic FACE & SINUS: normal facial exam MOUTH: Normal oral and palatal mucosa present THROAT: posterior oropharynx normal Eye: COMMON NORMALS: Equal, round and reactive pupils present, EOMs intact bilaterally, conjunctivae normal and no scleral icterus GENERAL EYE: appearance normal, both eyes and all related structures ALIGNMENT: Yes alignment normal PERIORBITAL: periorbital findings normal CONJUNCTIVA: Yes conjunctivae normal PUPIL: Yes Equal, round and reactive pupils present Neck/C-Spine: COMMON NORMALS: full ROM GENERAL: Yes normal visual inspection Lymph: LYMPHATIC: no lymphadenopathy noted Chest: COMMONS NORMALS: normal inspection of the chest Breast/axilla inspection: Yes no chest deformity, asymmetry, normal contours, no nodules, masses, tenderness Resp: COMMON NORMALS: normal respiratory effort, No retractions, No use of accessory muscles and clear to auscultation bilaterally EFFORT & INSPECTION: Yes able to speak in complete sentences and Yes symmetric chest movement AUSCULTATION: clear to auscultation bilaterally Cardio: COMMON NORMALS: regular rate, regular rhythm and Peripheral pulses 2+ throughout RATE: regular rate RHYTHM: regular rhythm PERIPHERAL PULSES: Peripheral pulses 2+ throughout GI: COMMON NORMALS: Soft to palpation INSPECTION: Yes abdominal distension AUSCULTATION: Yes Hypoactive bowel sounds present PALPATION: Yes Soft to palpation and Yes Tenderness to palpation present (GI) Details: other (Diffuse) RECTAL EXAM: deferred Extremity: COMMON NORMALS: normal to inspection GENERAL: Yes normal exam except as noted Neuro: COMMON NORMALS: patient oriented x3 SENSORIUM/ORIENTATION: Yes alert, Yes oriented to person, Yes oriented to place and Yes oriented to time CRANIAL NERVES: Yes CN normal except as noted Psych: COMMON NORMALS: mental status grossly normal, Normal thought process present, cooperative, activity/motor behavior normal, denies homicidal ideation and denies suicidal ideation THOUGHT PROCESS: Normal thought process present Skin: COMMON NORMALS: no rashes or lesions noted, no wounds and turgor normal GENERAL SKIN EXAM: no rashes or lesions noted and turgor normal Course Vital Signs: Vital signs: Vital Signs Temperature 98.3 F 07/15/24 16:10 Pulse Rate 78 07/16/24 01:41 Respiratory Rate 18 07/15/24 22:17 Blood Pressure 136/87 07/16/24 01:41 Pulse Oximetry 99 07/16/24 01:41 Oxygen Delivery Me thod Room Air 07/15/24 22:20 MDM - Abdominal Pain Medical Decision Making Patient was evaluated in the emergency department for complaints of abdominal pain, nausea vomiting and diarrhea. Stools are black and tarry. The symptoms began Tuesday. She is 1 week out from an admission where she had a large perianal abscess incision and drainage and washout. She was septic. She returns now with ongoing abdominal pain that is new. Underwent a laboratory evaluation, urinalysis, and CT of her abdomen pelvis. She has a mild white count and no anemia. Her electrolytes all seem to be within normal limits. The urinalysis reveals very dark urine with leukoesterase, white blood cell, red blood cell. The CT of her abdomen pelvis revealed multifocal pyelonephritis as well as residual perianal buttock abscess. There is a filling defect within the superior mesenteric vein with surrounding reticulation of mesenteric fat consistent with superior mesenteric vein thrombosis. I consulted Dr. Rogers who reviewed imaging and recommended heparin drip be started. Patient needs to transfer to a center with vascular surgery for thrombolysis versus thrombectomy Have a call out to [facility], Dr. Bennett, to see if she patient is an appropriate transfer to their facility. Currently they do not have any [facility] beds. Dr bennett does not recommend transfer for vascular reasons. This will not require surgical intervention. She only needs anticoagulation. At this time she has a mild bump in her white blood cell and a mild bump in her anion gap. Her renal fuction is intact. She is hemodynamically stable. Normotensive and does not have tachycardia. She is afebrile. She is not guarding on her exam and has no abdominal rigidity. We are going to start her on antibiotics for multifocal pyelonephritis. Zosylora We did do Hemoccult. I was unable to get a good specimen despite 2 attempts. Results are inconclusive. Since vascular -thrombectomy or thrombolysis is not recommended by vascular at [facility], I have consulted Hospitalist here at [facility] at 1945. Spoke with hospitalist who recommends transfer to larger center due to patient's complexity. Call out to [facility]. Spoke with Dr. Corea at [facility] [place], hospitalist. She has accepted the patient. We will arrange transport At midnight we are still waiting on transportation. We are going to transition care to Dr. Guaman for ongoing pain management and other needs until her departure. Lab Data 07/15/24 16:22 07/15/24 16:22 Labs/Radiology: Radiology Impressions Abdomen/Pelvis CT 07/15/24 17:47 IMPRESSION: 1. There is a filling defect within the superior mesenteric vein with surrounding reticulation of mesenteric fat consistent with superior mesenteric vein thrombosis. 2. Findings in the kidneys concerning for multifocal pyelonephritis. 3. Small 1.6 cm residual left perianal/buttock abscess. ADDENDUM: 07/15/243 Typographical errors: Lung bases: Clear Vasculature: There is filling defect in the superior mesenteric vein compatible for superior mesenteric vein thrombosis. THIS REPORT CONTAINS FINDINGS THAT MAY BE CRITICAL TO PATIENT CARE. The findings were verbally communicated via telephone conference with Dr. Thomas at 7:10 PM [employer] on 07/15/2024. The findings were acknowledged and understood. Laboratory Results WBC 12.45 10^3/uL (3.29-11.43) H 07/15/24 16:22 RBC 4.04 10^6/uL (3.85-5.65) 07/15/24 16:22 Hgb 11.30 g/dL (11.27-16.99) 07/15/24 16:22 Hct 35.2 % (36-47) L 07/15/24 16:22 MCV 87.1 fl (85-98) 07/15/24 16:22 MCH 28.0 pg (27-33) 07/15/24 16:22 MCHC 32.1 g/dL (30-55) 07/15/24 16:22 RDW 15.2 % (12.1-15.1) H 07/15/24 16:22 Plt Count 407 10^3/cmm (157-399) H 07/15/24 16:22 MPV 8.6 fL (7.4-10.4) 07/15/24 16:22 Neut % (Auto) 77.1 % 07/15/24 16:22 Lymph % (Auto) 13.6 % 07/15/24 16:22 [place] % (Auto) 7.4 % 07/15/24 16:22 Eos % (Auto) 1.1 % 07/15/24 16:22 Baso % (Auto) 0.4 % 07/15/24 16:22 Neut # (Auto) 9.60 10^3/uL (1.8-7.7) H 07/15/24 16:22 Lymph # (Auto) 1.7 10^3/uL (0.8-4.8) 07/15/24 16:22 [place] # (Auto) 0.9 10^3/uL (0.2-0.9) 07/15/24 16:22 Eos # (Auto) 0.1 10^3/uL (0.0-0.8) 07/15/24 16:22 Baso # (Auto) 0.1 10^3/uL (0.0-0.1) 07/15/24 16:22 Nucleated RBC % (auto) 0 % 07/15/24 16:22 Nucleated RBCs # 0.0 /100WBC 07/15/24 16:22 Sodium 142 mmol/L (136-145) 07/15/24 16:22 Potassium 3.8 mmol/L (3.5-5.1) 07/15/24 16:22 Chloride 106 mmol/L (98-107) 07/15/24 16:22 Carbon Dioxide 19 mmol/L (22-29) L 07/15/24 16:22 Anion Gap 20.8 (5-19) H 07/15/24 16:22 BUN 8 mg/dL (6-20) 07/15/24 16:22 Creatinine 0.8 mg/dL (0.5-0.9) 07/15/24 16:22 GFR Calculation 80.3 mL/min (90-130) L 07/15/24 16:22 Glucose 115 mg/dL (65-115) 07/15/24 16:22 Calculated Osmolality 293 mOsm/kg (285-295) 07/15/24 16:22 Lactic Acid 0.9 mmol/L (0.5-2.2) 07/15/24 16:22 Calcium 9.7 mg/dL (8.5-10.5) 07/15/24 16:22 Total Bilirubin 0.5 mg/dL (0.15-1.2) 07/15/24 16:22 AST 11 U/L (0-32) 07/15/24 16:22 ALT 14 U/L (0-33) 07/15/24 16:22 Alkaline Phosphatase 102 U/L (35-105) 07/15/24 16:22 Total Protein 7.6 g/dL (6.6-8.7) 07/15/24 16:22 Albumin 3.9 g/dL (3.5-5.2) 07/15/24 16:22 Globulin 3.7 g/dL (1.3-4.6) 07/15/24 16:22 Lipase 14 U/L (13-60) 07/15/24 16:22 HCG, Qual Negative (Negative) 07/15/24 16:22 Urine Color Dark yellow (Yellow) A 07/15/24 17:50 Urine Appearance Cloudy (CLEAR) A 07/15/24 17:50 Urine pH 6.0 (5-7) 07/15/24 17:50 Ur Specific [place] 1.021 (1.005-1.030) 07/15/24 17:50 Urine Protein 1+ (Negative) A 07/15/24 17:50 Urine Glucose (UA) Negative (Normal) 07/15/24 17:50 Urine Ketones Trace (Negative) 07/15/24 17:50 Urine Blood 3+ (Negative) A 07/15/24 17:50 Urine Nitrate Positive (Negative) A 07/15/24 17:50 Urine Bilirubin 1+ (Negative) H 07/15/24 17:50 Urine Urobilinogen 1.0 mg/dL (Negative) 07/15/24 17:50 Ur Leukocyte Esterase 1+ (Negative) A 07/15/24 17:50 Urine RBC 51-100 /hpf (0-2) H 07/15/24 17:50 Urine WBC 11-20 /hpf (0-5) H 07/15/24 17:50 Ur Squamous Epith Cells 21-50 /hpf (0-5) 07/15/24 17:50 Amorphous Sediment Not Reportable 07/15/24 17:50 Urine Bacteria None seen /hpf (NONE) 07/15/24 17:50 Hyaline Casts 3.71 /lpf 07/15/24 17:50 Urine Mucus 1+ /hpf 07/15/24 17:50 All radiology interpretation(s) finalized by discharge Discharge Plan Discharge Patient Disposition: Transfer to ED Clinical Impression: Superior mesenteric vein thrombosis, Pyelonephritis of right kidney, Pyelonephritis of left kidney, Abscess, perirectal Condition: Stable Prescriptions: No Action Proctofoam HC 1-1 % foam 1 applic WA QID PRN (Reason: itching) Qty: 10 0RF Preparation H (pe) 0.25 % suppository 1 supp WA BID PRN (Reason: hemorrhoids) Qty: 12 0RF medroxyprogesterone [Depo-Provera] 150 mg/mL suspension 150 mg IM .every 10-12 weeks Qty: 1 3RF ceftriaxone 1 gram Recon Soln 1,000 mg IVP Q24H 14 Days Qty: 22 0RF Rx Instructions: start 06/29/2024 stop 07/12/2024 docusate sodium 100 mg Capsule 100 mg PO BID 30 Days Qty: 60 0RF Referrals: Jonathon Gil MD [Primary Care Provider] - Coding Level of Care Code ED Cushion Filler for Chg Fwd Documented by User: Alex Guaman DO 07/16/24 05:04 HPI - Abdominal Pain General: Chief Complaint: Abdominal Pain Stated Complaint: severe stomach pain, 1 week postop abd sx Time Seen by Provider: 07/15/24 17:45 Related Data Previous Rx's Medication Instructions Recorded medroxyprogesterone 150 mg/mL 150 mg IM .every 10-12 weeks #1 mL 09/06/23 intramuscular suspension (Depo-Provera) hydrocortisone 1 %-pramoxine 1 % 1 applic WA QID PRN itching #10 06/24/24 rectal foam (Proctofoam HC) grams phenylephrine HCl 0.25 % rectal 1 supp WA BID PRN hemorrhoids #12 06/24/24 suppository (Preparation H (pe)) ea ceftriaxone 1 gram solution for 1,000 mg IVP Q24H 2 weeks #22 ea 07/04/24 injection docusate sodium 100 mg capsule 100 mg PO BID 30 days #60 caps 07/04/24 Allergies Allergy/AdvReac Type Severity Reaction Status Date / Time No Known Allergies Allergy Verified 07/15/24 16:14 PFS ED PFSH: Medical History No pertinent past medical history Denies diabetes, asthma, hypertension, seizures, DVT/PE PCP: Sees any of the providers at [facility] Surgical History Status post delivery 03/10/2021--primary low transverse delivery by Dr. Bowers at [facility] [place]. ---> No extensions, double layer closure Family History Brother Diabetes Father Heart disease Hypertension Grandmother Stroke Paternal Denies family history of Colon cancer Ovarian cancer Hyperlipidemia Breast cancer Uterine cancer Thyroid disease Social History Smoking and tobacco/nicotine status: never used tobacco/nicotine Second hand smoke exposure: No Alcohol intake: never Substance/Drug Use: never Course Vital Signs: Vital signs: Vital Signs Temperature 98.3 F 07/15/24 16:10 Pulse Rate 78 07/16/24 01:41 Respiratory Rate 18 07/15/24 22:17 Blood Pressure 136/87 07/16/24 01:41 Pulse Oximetry 99 07/16/24 01:41 Oxygen Delivery Me thod Room Air 07/15/24 22:20 MDM - Abdominal Pain Medical Decision Making Patient was evaluated in the emergency department for complaints of abdominal pain, nausea vomiting and diarrhea. Stools are black and tarry. The symptoms began Tuesday. She is 1 week out from an admission where she had a large perianal abscess incision and drainage and washout. She was septic. She returns now with ongoing abdominal pain that is new. Underwent a laboratory evaluation, urinalysis, and CT of her abdomen pelvis. She has a mild white count and no anemia. Her electrolytes all seem to be within normal limits. The urinalysis reveals very dark urine with leukoesterase, white blood cell, red blood cell. The CT of her abdomen pelvis revealed multifocal pyelonephritis as well as residual perianal buttock abscess. There is a filling defect within the superior mesenteric vein with surrounding reticulation of mesenteric fat consistent with superior mesenteric vein thrombosis. I consulted Dr. Rogers who reviewed imaging and recommended heparin drip be started. Patient needs to transfer to a center with vascular surgery for thrombolysis versus thrombectomy Have a call out to [facility], Dr. Bennett, to see if she patient is an appropriate transfer to their facility. Currently they do not have any [facility] beds. Dr bennett does not recommend transfer for vascular reasons. This will not require surgical intervention. She only needs anticoagulation. At this time she has a mild bump in her white blood cell and a mild bump in her anion gap. Her renal fuction is intact. She is hemodynamically stable. Normotensive and does not have tachycardia. She is afebrile. She is not guarding on her exam and has no abdominal rigidity. We are going to start her on antibiotics for multifocal pyelonephritis. Zosylora We did do Hemoccult. I was unable to get a good specimen despite 2 attempts. Results are inconclusive. Since vascular -thrombectomy or thrombolysis is not recommended by vascular at [facility], I have consulted Hospitalist here at [facility] at 1945. Spoke with hospitalist who recommends transfer to larger center due to patient's complexity. Call out to [facility]. Spoke with Dr. Corea at [facility] [place], hospitalist. She has accepted the patient. We will arrange transport At midnight we are still waiting on transportation. We are going to transition care to Dr. Guaman for ongoing pain management and other needs until her departure. This patient was originally seen by Mrs. GodoyDARIUSZ williamson.? I agree with her history, evaluation, and treatment. Lab Data 07/15/24 16:22 07/15/24 16:22 Labs/Radiology: Radiology Impressions Abdomen/Pelvis CT 07/15/24 17:47 IMPRESSION: 1. There is a filling defect within the superior mesenteric vein with surrounding reticulation of mesenteric fat consistent with superior mesenteric vein thrombosis. 2. Findings in the kidneys concerning for multifocal pyelonephritis. 3. Small 1.6 cm residual left perianal/buttock abscess. ADDENDUM: 07/15/241912 Typographical errors: Lung bases: Clear Vasculature: There is filling defect in the superior mesenteric vein compatible for superior mesenteric vein thrombosis. THIS REPORT CONTAINS FINDINGS THAT MAY BE CRITICAL TO PATIENT CARE. The findings were verbally communicated via telephone conference with Dr. Thomas at 7:10 PM [employer] on 07/15/2024. The findings were acknowledged and understood. Laboratory Results WBC 12.45 10^3/uL (3.29-11.43) H 07/15/24 16: RBC 4.04 10^6/uL (3.85-5.65) 07/15/24 16:22 Hgb 11.30 g/dL (11.27-16.99) 07/15/24 16: Hct 35.2 % (36-47) L 07/15/24 16:22 MCV 87.1 fl (85-98) 07/15/24 16:22 MCH 28.0 pg (27-33) 07/15/24 16: MCHC 32.1 g/dL (30-55) 07/15/24 16: RDW 15.2 % (12.1-15.1) H 07/15/24 16:22 Plt Count 407 10^3/cmm (157-399) H 07/15/24 16: MPV 8.6 fL (7.4-10.4) 07/15/24 16: Neut % (Auto) 77.1 % 07/15/24 16: Lymph % (Auto) 13.6 % 07/15/24 16: [place] % (Auto) 7.4 % 07/15/24 16: Eos % (Auto) 1.1 % 07/15/24 16: Baso % (Auto) 0.4 % 07/15/24 16: Neut # (Auto) 9.60 10^3/uL (1.8-7.7) H 07/15/24 16: Lymph # (Auto) 1.7 10^3/uL (0.8-4.8) 07/15/24 16:22 [place] # (Auto) 0.9 10^3/uL (0.2-0.9) 07/15/24 16: Eos # (Auto) 0.1 10^3/uL (0.0-0.8) 07/15/24 16: Baso # (Auto) 0.1 10^3/uL (0.0-0.1) 07/15/24 16: Nucleated RBC % (auto) 0 % 07/15/24 16: Nucleated RBCs # 0.0 /100WBC 07/15/24 16:22 Sodium 142 mmol/L (136-145) 07/15/24 16:22 Potassium 3.8 mmol/L (3.5-5.1) 07/15/24 16:22 Chloride 106 mmol/L (98-107) 07/15/24 16:22 Carbon Dioxide 19 mmol/L (22-29) L 07/15/24 16:22 Anion Gap 20.8 (5-19) H 07/15/24 16:22 BUN 8 mg/dL (6-20) 07/15/24 16:22 Creatinine 0.8 mg/dL (0.5-0.9) 07/15/24 16:22 GFR Calculation 80.3 mL/min (90-130) L 07/15/24 16:22 Glucose 115 mg/dL (65-115) 07/15/24 16:22 Calculated Osmolality 293 mOsm/kg (285-295) 07/15/24 16:22 Lactic Acid 0.9 mmol/L (0.5-2.2) 07/15/24 16:22 Calcium 9.7 mg/dL (8.5-10.5) 07/15/24 16:22 Total Bilirubin 0.5 mg/dL (0.15-1.2) 07/15/24 16:22 AST 11 U/L (0-32) 07/15/24 16:22 ALT 14 U/L (0-33) 07/15/24 16:22 Alkaline Phosphatase 102 U/L (35-105) 07/15/24 16:22 Total Protein 7.6 g/dL (6.6-8.7) 07/15/24 16:22 Albumin 3.9 g/dL (3.5-5.2) 07/15/24 16:22 Globulin 3.7 g/dL (1.3-4.6) 07/15/24 16:22 Lipase 14 U/L (13-60) 07/15/24 16:22 HCG, Qual Negative (Negative) 07/15/24 16:22 Urine Color Dark yellow (Yellow) A 07/15/24 17:50 Urine Appearance Cloudy (CLEAR) A 07/15/24 17:50 Urine pH 6.0 (5-7) 07/15/24 17:50 Ur Specific [place] 1.021 (1.005-1.030) 07/15/24 17:50 Urine Protein 1+ (Negative) A 07/15/24 17:50 Urine Glucose (UA) Negative (Normal) 07/15/24 17:50 Urine Ketones Trace (Negative) 07/15/24 17:50 Urine Blood 3+ (Negative) A 07/15/24 17:50 Urine Nitrate Positive (Negative) A 07/15/24 17:50 Urine Bilirubin 1+ (Negative) H 07/15/24 17:50 Urine Urobilinogen 1.0 mg/dL (Negative) 07/15/24 17:50 Ur Leukocyte Esterase 1+ (Negative) A 07/15/24 17:50 Urine RBC 51-100 /hpf (0-2) H 07/15/24 17:50 Urine WBC 11-20 /hpf (0-5) H 07/15/24 17:50 Ur Squamous Epith Cells 21-50 /hpf (0-5) 07/15/24 17:50 Amorphous Sediment Not Reportable 07/15/24 17:50 Urine Bacteria None seen /hpf (NONE) 07/15/24 17:50 Hyaline Casts 3.71 /lpf 07/15/24 17:50 Urine Mucus 1+ /hpf 07/15/24 17:50 Discharge Plan Discharge Patient Disposition: Transfer to ED Clinical Impression: Superior mesenteric vein thrombosis, Pyelonephritis of right kidney, Pyelonephritis of left kidney, Abscess, perirectal Condition: Stable Prescriptions: No Action Proctofoam HC 1-1 % foam 1 applic WA QID PRN (Reason: itching) Qty: 10 0RF Preparation H (pe) 0.25 % suppository 1 supp WA BID PRN (Reason: hemorrhoids) Qty: 12 0RF medroxyprogesterone [Depo-Provera] 150 mg/mL suspension 150 mg IM .every 10-12 weeks Qty: 1 3RF ceftriaxone 1 gram Recon Soln 1,000 mg IVP Q24H 14 Days Qty: 22 0RF Rx Instructions: start 06/29/2024 stop 07/12/2024 docusate sodium 100 mg Capsule 100 mg PO BID 30 Days Qty: 60 0RF Referrals: Jonathon Gil MD [Primary Care Provider] - Coding Level of Care Code ED Cushion Filler for Chg Fwaziza
[2024-07-15] MEDS: heparin 5,000 unit/mL INJ 1 mL IVP (19:51)
--- NOTE | 2024-07-15 20:04 | PC.NURSE ---
PATIENT HEPARIN DRIP UNVERIFIED BY PHARMACY AT THIS TIME. CALLED AND SPOKE TO CPS AND THEY STATED THEY WOULD VERIFY MED.
[2024-07-15 20:07] LABS: Lactic Sepsis W/Reflex 0.9 mmol/L (0.5-2.2)
[2024-07-15] MEDS: heparin drip 25,000 UNIT/500 ML PREMIX 24.77 UNIT IV (20:30)
[2024-07-15] MEDS: piperacillin-tazobactam 4.5 GM in sodium chloride 0.9% (plus) 50 ML IV (21:06)
[2024-07-15] MEDS: HYDROmorphone 1 mg/mL INJ 1 mL IVP (22:17)
[2024-07-16 01:41] VITALS: BP 136/87; PULSE 78; O2SAT 99
== END 2024-07-16 01:42 ==
PROVIDERS: Emergency Medicine; Emergency Provider Nurse Practitioner; PCP Obstetrics & Gynecology
DX: K55.059 Acute (reversible) ischemia of intestine, part and extent unspecified (principal); N12 Tubulo-interstitial nephritis, not specified as acute or chronic; K61.1 Rectal abscess
CPT/HCPCS: 36415; 74177; 80053; 81001; 83605; 83690; 84703; 85025; 86850; 86900; 87040; 96374; 96375; 96376; 99285; J1171; J1644; J2405; J2470; J2543; J3010; J7030

== ENCOUNTER 2024-08-03 10:29 | Emergency (ER) | payer SELFPAY ==
[2024-08-03] VITALS (9 sets, daily range): BP systolic 113–144; BP diastolic 70–90; PULSE 105–130; RESP 15–18; TEMP 36.7; O2SAT 98–100; BMI 28.3
--- NOTE | 2024-08-03 10:49 | CTR_ITS ---
PROCEDURE INFORMATION: Exam: CT Abdomen And Pelvis With Contrast Exam date and time: 08/03/2024 12:47 PM Age: 39 years old Clinical indication: Abdominal pain; Generalized; Additional info: Abdominal pain PT recently dx with abdominal thrombosis, PT C/O abdominal pain. PT C/O dizzy and weakness that started today. PT states she became light headed today and almost passed out. TECHNIQUE: Imaging protocol: Computed tomography of the abdomen and pelvis with contrast. Radiation optimization: All CT scans at this facility use at least one of these dose optimization techniques: automated exposure control; mA and/or kV adjustment per patient size (includes targeted exams where dose is matched to clinical indication); or iterative reconstruction. Contrast material: OMNI 350; Contrast volume: 100 ml; Contrast route: INTRAVENOUS (IV); COMPARISON: CT abdomen pelvis w con* [id number] 07/15/2024 6:10 PM RADIATION DOSE METRICS: Total DLP (mGy-cm): 800.11 FINDINGS: Lungs: Lung bases are clear. No pleural effusion. Liver: Normal. No mass. Gallbladder and biliary ducts: Normal. No calcified stones. No ductal dilation. Pancreas: Normal. No ductal dilation. Spleen: Normal. No splenomegaly. Adrenal glands: Normal. No mass. Kidneys and ureters: Normal. No hydronephrosis. Stomach and bowel: Unremarkable. No obstruction. No mucosal thickening. Appendix: No evidence of appendicitis. Intraperitoneal space: See Reproductive finding. Vasculature: There is persistent thrombosis involving the superior mesenteric vein. Lymph nodes: Unremarkable. No enlarged lymph nodes. Urinary bladder: Unremarkable as visualized. Reproductive: There is a large amount of thrombus and liquid hemorrhage lying within the endometrial cavity causing cavity distension. In addition, there is what appears to be active hemorrhage from the right adnexa. Free peritoneal fluid is noted throughout the abdomen and pelvis. I see no free peritoneal air. Bones/joints: Unremarkable. No acute fracture. Soft tissues: Unremarkable. CT/CT abdomen pelvis w con* [id number] IMPRESSION: 1. Active hemorrhage from the right ovary with [id number] hemoperitoneum noted 2. Interval development of extensive endometrial hemorrhage with endometrial cavity distension 3. 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
--- NOTE | 2024-08-03 10:49 | US_ITS ---
WS: [id number] US transvaginal [id number] HISTORY: heavy vaginal bleeding/clots COMPARISON: None available. Uterus: 11.5 cm x 4.7 cm x 5.8 cm. Mildly enlarged anteverted uterus. Endometrium: 2.2 cm. Heterogeneous endometrium. Increased echogenicity throughout the endometrium. Ce ntral nodule in the endometrium may be clotted blood or polyp. Not a typical appearance for neoplasm. Neither ovary is identified. Moderate amount of free fluid in the pelvis. Low-level echoes within the free fluid. Suspicious for h emoperitoneum. US/US transvaginal [id number] IMPRESSION: 1. Enlarged heterogeneous endometrium. Increased echogenicity in the endometri um may be related to blood clot versus bleeding polyp and less likely mass. 2. Moderate complex free fluid in the pelvis. Consistent with hemoperitoneum. Source of the hemoperitoneum is not evident. Recommend CT evaluation of the abd omen and pelvis with IV contrast. 3. Neither ovary is identified.
--- NOTE | 2024-08-03 10:51 | W.ED.ABDPA2 ---
Documented by User: MARY ELLEN Cortez 08/03/24 15:10 HPI - Abdominal Pain General: Chief Complaint: Abdominal Pain Stated Complaint: ABD PAIN Time Seen by Provider: 08/03/24 10:35 Source: patient Mode of arrival: EMS Limitations: no limitations History of Present Illness: Patient is a 39-year-old female presents to ED today with a complaint of lightheadedness/dizziness/presyncopal feelings as well as heavy vaginal bleeding with clot passage. Patient has had an extensive medical history over the last 2 months or so. She was admitted here to our facility back in June for a perianal abscess and appendicitis. She was septic with bacteremia at that visit. Since then she is continue to follow-up with wound care for her perianal abscess. She return to the emergency department last month with complaints of abdominal pain. She was found to have pyelonephritis as well as superior mesenteric vein thrombosis. She was subsequently transferred to [facility] on that visit. She states while at [facility], she underwent colonoscopy and endoscopy. She was started on anticoagulation, Eliquis, for the mesenteric vein thrombosis. Patient states she is on Depo-Provera. She states normally she does not have vaginal bleeding while on this. She is scheduled for her next shot on Tuesday. Over the past several days she has noticed heavy vaginal bleeding, pelvic cramping, and clot passage. She is having diffuse abdominal pain. MD elicited complaint: abdominal pain and other (pelvic pain, vaginal bleeding) Onset (ago): day(s) Pain Consistency: constant Location: Diffuse and Pelvis Severity: moderate Quality: cramping Migration to: no migration Exacerbating factors: nothing Relieving factors: nothing Associated Symptoms: Reports nausea; Denies chills, diarrhea, dysuria, fever(s) and vomiting Related Data Home Medications Medication Instructions Recorded Confirmed acetaminophen 325 mg tablet 325 mg PO Q4H 08/03/24 08/03/24 apixaban 5 mg tablet (Eliquis) 5 mg PO BID 08/03/24 08/03/24 Previous Rx's Medication Instructions Recorded medroxyprogesterone 150 mg/mL See Rx Instructions .Route 07/23/24 intramuscular suspension .COMPLEX #1 mL Allergies Allergy/AdvReac Type Severity Reaction Status Date / Time No Known Allergies Allergy Verified 07/15/24 16:14 Review of Systems Const: Denies: fever(s), chills, body aches, fatigue or malaise Card: Denies: chest pain Resp: Denies: dyspnea GI: Reports: abdominal pain and nausea; Denies: vomiting or diarrhea : Reports: vaginal bleeding and pelvic pain; Denies: flank pain, difficulty voiding, dysuria, urinary frequency, urinary urgency, urinary hesitancy or vaginal discharge Musc: Denies: neck pain, back pain, extremity pain, extremity swelling, joint pain or joint swelling Skin/Breast: Denies: rash Neuro: Denies: headache(s), numbness in extremities, weakness in extremities, sensory changes or dizziness PFS ED PFSH: Medical History No pertinent past medical history Denies diabetes, asthma, hypertension, seizures, DVT/PE PCP: Sees any of the providers at [facility] Surgical History Status post delivery 03/10/2021--primary low transverse delivery by Dr. Bowers at [facility] for unstable lie. ---> No extensions, double layer closure Family History Brother Diabetes Father Heart disease Hypertension Grandmother Stroke Paternal Denies family history of Colon cancer Ovarian cancer Hyperlipidemia Breast cancer Uterine cancer Thyroid disease Social History Smoking and tobacco/nicotine status: never used tobacco/nicotine Second hand smoke exposure: No Alcohol intake: never Substance/Drug Use: never Physical Exam Const: COMMON NORMALS: no acute distress, patient oriented x3, no limitations, alert and well nourished GENERAL APPEARANCE: ill appearing ORIENTATION/CONSCIOUSNESS: Yes awake, Yes oriented to person, Yes oriented to place and Yes oriented to time HENMT: COMMON NORMALS: normocephalic and atraumatic HEAD & SCALP: normocephalic and atraumatic Eye: COMMON NORMALS: no scleral icterus Neck/C-Spine: COMMON NORMALS: full ROM, no lymphadenopathy, supple and no meningeal signs Chest: COMMONS NORMALS: normal inspection of the chest Resp: COMMON NORMALS: normal respiratory effort and clear to auscultation bilaterally AUSCULTATION: clear to auscultation bilaterally Cardio: COMMON NORMALS: regular rate and regular rhythm RATE: regular rate RHYTHM: regular rhythm GI: COMMON NORMALS: Normal to inspection, nondistended, normoactive bowel sounds present, Soft to palpation, No hepatosplenomegaly present and no masses INSPECTION: Yes normal to inspection PALPATION: Yes Soft to palpation, Yes Tenderness to palpation present (GI) (diffuse) and Yes No hepatosplenomegaly present : COMMON NORMALS: Yes no CVA tenderness BLADDER/KIDNEY EXAM: Yes no CVA tenderness Back/Pelvis: COMMON NORMALS: no CVA tenderness and thoracic and lumbar spine normal to inspection Extremity: COMMON NORMALS: normal to inspection GENERAL: Yes normal exam except as noted Neuro: COMMON NORMALS: patient oriented x3, moves all extremities, no focal motor deficits and no sensory deficits noted SENSORIUM/ORIENTATION: Yes alert, Yes oriented to person, Yes oriented to place and Yes oriented to time MENINGEAL SIGNS: Yes no meningeal signs Skin: COMMON NORMALS: no rashes or lesions noted NARRATIVE SKIN EXAM: pale GENERAL SKIN EXAM: no rashes or lesions noted Course Consultations: Consultation #1: Dr. Motley-recommending transfer; will come and place consult on her chart as requested Dr. Davies-agrees with need for transfer due to recommendation of CUSTOMER SERVICE TRAINER Consultation #2: Dr. SalcidoFucv-ZLPMP-[facility] [place]-declines patient due to no vascular coverage Consultation #3: [facility]-awaited callback from CUSTOMER SERVICE TRAINER for over an hour; eventually called transfer line back and will do ER to ER transfer; spoke to Dr. Rowell through [facility] ED who will accept patient Vital Signs: Vital signs: Vital Signs Temperature 98.0 F 08/03/24 12:51 Pulse Rate 122 H 08/03/24 13:36 Respiratory Rate 16 08/03/24 13:06 Blood Pressure 123/74 08/03/24 13:36 Pulse Oximetry 100 08/03/24 13:36 Oxygen Delivery Me thod Room Air 08/03/24 10:31 MDM - Abdominal Pain Medical Decision Making Patient is a very nice 39-year-old female here for complaints of heavy vaginal bleeding with clot passage. She arrives stable apart from sinus tachycardia. She was found to have a hemoglobin of 5.9 which is down from 11.3 on 07/15. She was immediately ordered fluids and blood products. Spoke to Dr. Motley immediately-stated she was not a candidate for estrogen given her superior mesenteric vein thrombosis. Was not sure about use of TXA. I spoke to Dr. Ludwig who did recommend going ahead and giving this. Dr. Motley recommended US imaging which was already ordered. US of her pelvis was able to be completed showing enlarged heterogeneous endometrium with increased echogenicity and clot. She was also found to have a hemoperitoneum. CT scan was already ordered but called to complete this stat. CT scan showing active hemorrhage from her right ovary with mild to moderate hemoperitoneum. Spoke to Dr. Moltey again who stated he would not do surgery on this patient and recommending stabilizing her medically and transferring. I have asked him to come and place consult note on her chart. I did speak to Dr. Davies who also agreed for need for transfer especially if CUSTOMER SERVICE TRAINER was not planning on surgery as he would be able to do limited things for her apart from continued transfusion. I spoke to [facility] and [facility] both of which declined due to need for vascular coverage given her superior mesenteric vein thrombosis. I spoke to [place] who was supposed to call back but this took over an hour. Ultimately I decided to transfer her ED to ED to [facility]. Admitting physician was Dr. Rowell. They confirmed vascular/CUSTOMER SERVICE TRAINER availability. Dr. Ludwig has been aware of patient throughout her entire ED stay and agrees with care for her here and need for transfer as we have a patient who is anticoagulated for known superior mesenteric vein thrombosis in the setting of acute gynecologic hemorrhage. He will place consult on her chart as well. Will go by air transfer. Medical Records I reviewed the patient's medical records. Lab Data I reviewed the patient's lab results. 08/03/24 11:06 08/03/24 11:06 Labs/Radiology: Radiology Impressions Abdomen/Pelvis CT 08/03/24 10:49 IMPRESSION: 1. Active hemorrhage from the right ovary with [id number] hemoperitoneum noted 2. Interval development of extensive endometrial hemorrhage with endometrial cavity distension 3. Persistent thrombosis of the superior mesenteric vein ADDENDUM: 08/03/24 [id number] COMMENT: THIS REPORT CONTAINS FINDINGS THAT MAY BE CRITICAL TO PATIENT CARE. The exam findings were verbally communicated by me to Ai Rahman via telephone conference at 1:04 PM PAYROLL ASSISTANT on 08/03/2024. The findings were acknowledged and understood. Transvaginal US 08/03/24 10:49 IMPRESSION: 1. Enlarged heterogeneous endometrium. Increased echogenicity in the endometrium may be related to blood clot versus bleeding polyp and less likely mass. 2. Moderate complex free fluid in the pelvis. Consistent with hemoperitoneum. Source of the hemoperitoneum is not evident. Recommend CT evaluation of the abdomen and pelvis with IV contrast. 3. Neither ovary is identified. Laboratory Results WBC 9.79 10^3/uL (3.29-11.43) 08/03/24 11:06 RBC 2.08 10^6/uL (3.85-5.65) L 08/03/24 11:06 Hgb 5.90 g/dL (11.27-16.99) L* 08/03/24 11:06 Hct 18.8 % (36-47) L* 08/03/24 11:06 MCV 90.4 fl (85-98) 08/03/24 11:06 MCH 28.4 pg (27-33) 08/03/24 11:06 MCHC 31.4 g/dL (30-55) 08/03/24 11:06 RDW 17.0 % (12.1-15.1) H 08/03/24 11:06 Plt Count 268 10^3/cmm (157-399) 08/03/24 11:06 MPV 8.6 fL (7.4-10.4) 08/03/24 11:06 Neut % (Auto) 83.4 % 08/03/24 11:06 Lymph % (Auto) 11.0 % 08/03/24 11:06 [place] % (Auto) 4.1 % 08/03/24 11:06 Eos % (Auto) 0.7 % 08/03/24 11:06 Baso % (Auto) 0.3 % 08/03/24 11:06 Neut # (Auto) 8.16 10^3/uL (1.8-7.7) H 08/03/24 11:06 Lymph # (Auto) 1.1 10^3/uL (0.8-4.8) 08/03/24 11:06 [place] # (Auto) 0.4 10^3/uL (0.2-0.9) 08/03/24 11:06 Eos # (Auto) 0.1 10^3/uL (0.0-0.8) 08/03/24 11:06 Baso # (Auto) 0.0 10^3/uL (0.0-0.1) 08/03/24 11:06 Nucleated RBC % (auto) 0 % 08/03/24 11:06 Nucleated RBCs # 0.0 /100WBC 08/03/24 11:06 PT 17.80 SECONDS (12.1-14.9) H 08/03/24 11:06 INR 1.37 (0.8-1.2) H 08/03/24 11:06 APTT 22.7 SECONDS (23.9-36.7) L 08/03/24 11:06 Sodium 141 mmol/L (136-145) 08/03/24 11:06 Potassium 3.5 mmol/L (3.5-5.1) 08/03/24 11:06 Chloride 110 mmol/L (98-107) H 08/03/24 11:06 Carbon Dioxide 19 mmol/L (22-29) L 08/03/24 11:06 Anion Gap 15.5 (5-19) 08/03/24 11:06 BUN 11 mg/dL (6-20) 08/03/24 11:06 Creatinine 0.5 mg/dL (0.5-0.9) 08/03/24 11:06 GFR Calculation 138.1 mL/min (90-130) H 08/03/24 11:06 Glucose 132 mg/dL (65-115) H 08/03/24 11:06 Calculated Osmolality 293 mOsm/kg (285-295) 08/03/24 11:06 Lactic Acid 1.6 mmol/L (0.5-2.2) 08/03/24 11:06 Calcium 8.5 mg/dL (8.5-10.5) 08/03/24 11:06 Total Bilirubin 0.3 mg/dL (0.15-1.2) 08/03/24 11:06 AST 11 U/L (0-32) 08/03/24 11:06 ALT 14 U/L (0-33) 08/03/24 11:06 Alkaline Phosphatase 80 U/L (35-105) 08/03/24 11:06 Total Protein 5.8 g/dL (6.6-8.7) L 08/03/24 11:06 Albumin 3.4 g/dL (3.5-5.2) L 08/03/24 11:06 Globulin 2.4 g/dL (1.3-4.6) 08/03/24 11:06 Lipase 12 U/L (13-60) L 08/03/24 11:06 HCG, Qual Negative (Negative) 08/03/24 11:06 Urine Color Red (Yellow) A 08/03/24 12:00 Urine Appearance Turbid (CLEAR) A 08/03/24 12:00 Urine pH 5.5 (5-7) 08/03/24 12:00 Ur Specific Tavernier 1.020 (1.005-1.030) 08/03/24 12:00 Urine Protein 2+ (Negative) A 08/03/24 12:00 Urine Glucose (UA) Negative (Normal) 08/03/24 12:00 Urine Ketones Negative (Negative) 08/03/24 12:00 Urine Blood 3+ (Negative) A 08/03/24 12:00 Urine Nitrate Negative (Negative) 08/03/24 12:00 Urine Bilirubin 1+ (Negative) H 08/03/24 12:00 Urine Urobilinogen 0.2 mg/dL (Negative) 08/03/24 12:00 Ur Leukocyte Esterase 1+ (Negative) A 08/03/24 12:00 Urine RBC >100 /hpf (0-2) H 08/03/24 12:00 Urine WBC 11-20 /hpf (0-5) H 08/03/24 12:00 Ur Squamous Epith Cells 0-5 /hpf (0-5) 08/03/24 12:00 Amorphous Sediment Not Reportable 08/03/24 12:00 Urine Bacteria Trace /hpf (NONE) 08/03/24 12:00 Hyaline Casts 5.94 /lpf 08/03/24 12:00 Blood Type A Positive 08/03/24 12:13 Rho(D) Type Rh positive 08/03/24 12:13 Antibody Screen Negative 08/03/24 12:13 Crossmatch See Detail 08/03/24 12:13 All radiology interpretation(s) finalized by discharge Discharge Plan Discharge Patient Disposition: Transfer to ED Clinical Impression: Hemorrhage of right ovary, Anemia due to acute blood loss, Superior mesenteric vein thrombosis, Abnormal uterine bleeding due to disorder of endometrium Condition: Stable Prescriptions: No Action medroxyprogesterone 150 mg/mL suspension See Rx Instructions .ROUTE .COMPLEX Qty: 1 3RF Dose Instruction: INJECT 150MG INTRAMUSCULARLY EVERY 10-12 WEEKS Rx Instructions: INJECT 150MG INTRAMUSCULARLY EVERY 10-12 WEEKS Eliquis 5 mg Tablet 5 mg PO BID acetaminophen 325 mg Tablet 325 mg PO Q4H Referrals: Jonathon Gil MD [Primary Care Provider] - Coding Level of Care Code ED Automotive Parts Specialist for Chg Fwd Documented by User: Mark Ludwig 08/03/24 15:21 HPI - Abdominal Pain General: Chief Complaint: Abdominal Pain Stated Complaint: ABD PAIN Time Seen by Provider: 08/03/24 10:35 Related Data Home Medications Medication Instructions Recorded Confirmed acetaminophen 325 mg tablet 325 mg PO Q4H 08/03/24 08/03/24 apixaban 5 mg tablet (Eliquis) 5 mg PO BID 08/03/24 08/03/24 Previous Rx's Medication Instructions Recorded medroxyprogesterone 150 mg/mL See Rx Instructions .Route 07/23/24 intramuscular suspension .COMPLEX #1 mL Allergies Allergy/AdvReac Type Severity Reaction Status Date / Time No Known Allergies Allergy Verified 07/15/24 16:14 PFS ED PFSH: Medical History No pertinent past medical history Denies diabetes, asthma, hypertension, seizures, DVT/PE PCP: Sees any of the providers at [facility] Surgical History Status post delivery 03/10/2021--primary low transverse delivery by Dr. Bowers at [facility] for unstable lie. ---> No extensions, double layer closure Family History Brother Diabetes Father Heart disease Hypertension Grandmother Stroke Paternal Denies family history of Colon cancer Ovarian cancer Hyperlipidemia Breast cancer Uterine cancer Thyroid disease Social History Smoking and tobacco/nicotine status: never used tobacco/nicotine Second hand smoke exposure: No Alcohol intake: never Substance/Drug Use: never Course Vital Signs: Vital signs: Vital Signs Temperature 98.0 F 08/03/24 12:51 Pulse Rate 122 H 08/03/24 13:36 Respiratory Rate 16 08/03/24 13:06 Blood Pressure 123/74 08/03/24 13:36 Pulse Oximetry 100 08/03/24 13:36 Oxygen Delivery Me thod Room Air 08/03/24 10:31 MDM - Abdominal Pain Medical Records I Dr. Ludwig was the collaborating physician and on this patient's care I had direct patient [id number] contact the patient and family patient presented to the ER with family present chief complaint of vaginal bleeding she was found to be having acute hemorrhage of the right ovary with mild to moderate hemoperitoneum as well as extensive endometrial hemorrhage SHIPPING ROOM SUPERVISOR was contacted in which she recommends transfer to higher level care due to lack of vascular surgery as patient also has a inferior mesenteric vein clot that she is currently on anticoagulation for multiple facilities were contacted patient was accepted at [facility] outpatient to going by air as her hemoglobin currently is 5.9 and is actively bleeding patient is somewhat tachycardic but remains in guarded condition at this time. On exam patient's heart rate is tachycardic equal breath sounds appreciated bilaterally abdomen is mildly tender patient appears to be nondiaphoretic but slightly pale. Lab Data 08/03/24 11:06 08/03/24 11:06 Labs/Radiology: Radiology Impressions Abdomen/Pelvis CT 08/03/24 10:49 IMPRESSION: 1. Active hemorrhage from the right ovary with [id number] hemoperitoneum noted 2. Interval development of extensive endometrial hemorrhage with endometrial cavity distension 3. 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 The exam findings were verbally communicated by me to Ai Rahman via telephone conference at 1:04 PM PAYROLL ASSISTANT on 08/03/2024. The findings were acknowledged and understood. Transvaginal US 08/03/24 10:49 IMPRESSION: 1. Enlarged heterogeneous endometrium. Increased echogenicity in the endometrium may be related to blood clot versus bleeding polyp and less likely mass. 2. Moderate complex free fluid in the pelvis. Consistent with hemoperitoneum. Source of the hemoperitoneum is not evident. Recommend CT evaluation of the abdomen and pelvis with IV contrast. 3. Neither ovary is identified. Laboratory Results WBC 9.79 10^3/uL (3.29-11.43) 08/03/24 11:06 RBC 2.08 10^6/uL (3.85-5.65) L 08/03/24 11:06 Hgb 5.90 g/dL (11.27-16.99) L* 08/03/24 11:06 Hct 18.8 % (36-47) L* 08/03/24 11:06 MCV 90.4 fl (85-98) 08/03/24 11:06 MCH 28.4 pg (27-33) 08/03/24 11:06 MCHC 31.4 g/dL (30-55) 08/03/24 11:06 RDW 17.0 % (12.1-15.1) H 08/03/24 11:06 Plt Count 268 10^3/cmm (157-399) 08/03/24 11:06 MPV 8.6 fL (7.4-10.4) 08/03/24 11:06 Neut % (Auto) 83.4 % 08/03/24 11:06 Lymph % (Auto) 11.0 % 08/03/24 11:06 [place] % (Auto) 4.1 % 08/03/24 11:06 Eos % (Auto) 0.7 % 08/03/24 11:06 Baso % (Auto) 0.3 % 08/03/24 11:06 Neut # (Auto) 8.16 10^3/uL (1.8-7.7) H 08/03/24 11:06 Lymph # (Auto) 1.1 10^3/uL (0.8-4.8) 08/03/24 11:06 [place] # (Auto) 0.4 10^3/uL (0.2-0.9) 08/03/24 11:06 Eos # (Auto) 0.1 10^3/uL (0.0-0.8) 08/03/24 11:06 Baso # (Auto) 0.0 10^3/uL (0.0-0.1) 08/03/24 11:06 Nucleated RBC % (auto) 0 % 08/03/24 11:06 Nucleated RBCs # 0.0 /100WBC 08/03/24 11:06 PT 17.80 SECONDS (12.1-14.9) H 08/03/24 11:06 INR 1.37 (0.8-1.2) H 08/03/24 11:06 APTT 22.7 SECONDS (23.9-36.7) L 08/03/24 11:06 Sodium 141 mmol/L (136-145) 08/03/24 11:06 Potassium 3.5 mmol/L (3.5-5.1) 08/03/24 11:06 Chloride 110 mmol/L (98-107) H 08/03/24 11:06 Carbon Dioxide 19 mmol/L (22-29) L 08/03/24 11:06 Anion Gap 15.5 (5-19) 08/03/24 11:06 BUN 11 mg/dL (6-20) 08/03/24 11:06 Creatinine 0.5 mg/dL (0.5-0.9) 08/03/24 11:06 GFR Calculation 138.1 mL/min (90-130) H 08/03/24 11:06 Glucose 132 mg/dL (65-115) H 08/03/24 11:06 Calculated Osmolality 293 mOsm/kg (285-295) 08/03/24 11:06 Lactic Acid 1.6 mmol/L (0.5-2.2) 08/03/24 11:06 Calcium 8.5 mg/dL (8.5-10.5) 08/03/24 11:06 Total Bilirubin 0.3 mg/dL (0.15-1.2) 08/03/24 11:06 AST 11 U/L (0-32) 08/03/24 11:06 ALT 14 U/L (0-33) 08/03/24 11:06 Alkaline Phosphatase 80 U/L (35-105) 08/03/24 11:06 Total Protein 5.8 g/dL (6.6-8.7) L 08/03/24 11:06 Albumin 3.4 g/dL (3.5-5.2) L 08/03/24 11:06 Globulin 2.4 g/dL (1.3-4.6) 08/03/24 11:06 Lipase 12 U/L (13-60) L 08/03/24 11:06 HCG, Qual Negative (Negative) 08/03/24 11:06 Urine Color Red (Yellow) A 08/03/24 12:00 Urine Appearance Turbid (CLEAR) A 08/03/24 12:00 Urine pH 5.5 (5-7) 08/03/24 12:00 Ur Specific Tavernier 1.020 (1.005-1.030) 08/03/24 12:00 Urine Protein 2+ (Negative) A 08/03/24 12:00 Urine Glucose (UA) Negative (Normal) 08/03/24 12:00 Urine Ketones Negative (Negative) 08/03/24 12:00 Urine Blood 3+ (Negative) A 08/03/24 12:00 Urine Nitrate Negative (Negative) 08/03/24 12:00 Urine Bilirubin 1+ (Negative) H 08/03/24 12:00 Urine Urobilinogen 0.2 mg/dL (Negative) 08/03/24 12:00 Ur Leukocyte Esterase 1+ (Negative) A 08/03/24 12:00 Urine RBC >100 /hpf (0-2) H 08/03/24 12:00 Urine WBC 11-20 /hpf (0-5) H 08/03/24 12:00 Ur Squamous Epith Cells 0-5 /hpf (0-5) 08/03/24 12:00 Amorphous Sediment Not Reportable 08/03/24 12:00 Urine Bacteria Trace /hpf (NONE) 08/03/24 12:00 Hyaline Casts 5.94 /lpf 08/03/24 12:00 Blood Type A Positive 08/03/24 12:13 Rho(D) Type Rh positive 08/03/24 12:13 Antibody Screen Negative 08/03/24 12:13 Crossmatch See Detail 08/03/24 12:13 Discharge Plan Discharge Patient Disposition: Transfer to ED Clinical Impression: Hemorrhage of right ovary, Anemia due to acute blood loss, Superior mesenteric vein thrombosis, Abnormal uterine bleeding due to disorder of endometrium Condition: Stable Prescriptions: No Action medroxyprogesterone 150 mg/mL suspension See Rx Instructions .ROUTE .COMPLEX Qty: 1 3RF Dose Instruction: INJECT 150MG INTRAMUSCULARLY EVERY 10-12 WEEKS Rx Instructions: INJECT 150MG INTRAMUSCULARLY EVERY 10-12 WEEKS Eliquis 5 mg Tablet 5 mg PO BID acetaminophen 325 mg Tablet 325 mg PO Q4H Referrals: Jonathon Gil MD [Primary Care Provider] - Coding Level of Care Code ED Automotive Parts Specialist for Edward Jerez
--- NOTE | 2024-08-03 10:55 | PC.PHAR ---
patient states she was put on eliquis in her last stay at [facility] recently, no records as of yet but i faxed them to send me her med list they had her on
[2024-08-03 11:15] LABS: Basophils % 0.3 %; Eosinophils # 0.1 10^3/uL (0.0-0.8); Eosinophils % 0.7 %; Lymphocytes # 1.1 10^3/uL (0.8-4.8); Mean Corpuscular HGB Conc 31.4 g/dL (30-55); Mean Corpuscular Hemoglobin 28.4 pg (27-33); Mean Corpuscular Volume 90.4 fl (85-98); Mean Platelet Volume 8.6 fL (7.4-10.4); Monocytes # 0.4 10^3/uL (0.2-0.9); Monocytes % 4.1 %; Neutrophils # 8.16 10^3/uL (1.8-7.7); Neutrophils % 83.4 %; Nucleated Red Blood Cells % 0 %; Platelet Count 268 10^3/cmm (157-399); Red Blood Count 2.08 10^6/uL (3.85-5.65); White Blood Count 9.79 10^3/uL (3.29-11.43)
[2024-08-03 11:29] LABS: HCG, Serum Qual Negative (Negative)
[2024-08-03 11:31] LABS: Alanine Aminotransferase 14 U/L (0-33); Albumin Level 3.4 g/dL (3.5-5.2); Alkaline Phosphatase 80 U/L (35-105); Anion Gap 15.5 (5-19); Aspartate Amino Transferase 11 U/L (0-32); Blood Urea Nitrogen 11 mg/dL (6-20); Calcium 8.5 mg/dL (8.5-10.5); Carbon Dioxide 19 mmol/L (22-29); Chloride 110 mmol/L (98-107); Creatinine Clr Calc Pharmacy 156.6486; Globulin 2.4 g/dL (1.3-4.6); Glomerular Filtration Rate 138.1 mL/min (90-130); Glucose 132 mg/dL (65-115); Lipase 12 U/L (13-60); Osmolality Calculated 293 mOsm/kg (285-295); Potassium 3.5 mmol/L (3.5-5.1); Sodium 141 mmol/L (136-145); Total Bilirubin 0.3 mg/dL (0.15-1.2); Total Protein 5.8 g/dL (6.6-8.7)
[2024-08-03 11:32] LABS: Lactic Sepsis W/Reflex 1.6 mmol/L (0.5-2.2)
[2024-08-03 11:43] LABS: Hematocrit 18.8 % (36-47)
[2024-08-03] MEDS: sodium chloride 0.9% 1,000 ML 999 ML IV (12:09)
[2024-08-03] MEDS: tranexamic acid 1,000 MG/100 ML PREMIX 600 MG IV (12:19)
[2024-08-03] MEDS: iohexol 350 mg/mL 500 mL Btl (per mL) IV (12:50)
[2024-08-03 13:02] LABS: Bilirubin Urine 1+ (Negative); Blood Urine 3+ (Negative); Glucose Urine UA Negative (Normal); Ketones Urine Negative (Negative); Leukocyte Esterase Urine 1+ (Negative); Nitrate Urine Negative (Negative); Protein Urine 2+ (Negative); Urine Appearance Turbid (CLEAR); Urobilinogen Urine 0.2 mg/dL (Negative); pH Urine 5.5 (5-7)
[2024-08-03 13:04] LABS: INR 1.37 (0.8-1.2)
[2024-08-03 13:05] LABS: Partial Thromboplastin Time 22.7 SECONDS (23.9-36.7)
[2024-08-03 13:08] LABS: Add Urine Microscopic? YES; Bacteria Urine Trace /hpf; Hyaline Casts Urine 5.94 /lpf; RBC Urine >100 /hpf (0-2); Squamous Epithelial Cell Urine 0-5 /hpf (0-5)
[2024-08-03 13:09] LABS: UA Slide Review UA Slide Review Perf; Urine Color Red (Yellow)
[2024-08-03 13:10] LABS: Add Urine Culture? Yes
[2024-08-03] MEDS: diphenhydrAMINE 50 mg/mL SDV 1mL 25 MG IVP (14:17)
--- NOTE | 2024-08-03 15:35 | P.CONIM_ITS ---
Providers/Reason for Consult 2 Consulting Physican/Specialty*: Paul Motley MD, ob-application development specialist Reason for Consult*: heavy vaginal bleeding hemoperitoneum Primary UNMANNED EQUIPMENT OPERATOR: Paul Motley MD Primary Care Provider: Jonathon Gil MD UNMANNED EQUIPMENT OPERATOR Consult HPI History of Present Illness Samantha Farmer is a 39 year old female A1 On DMPA since April 2021 Has been doing well with minimal or no bleeding Over the past two months, patient has been hospitalized for several major issues Including thrombosis of superior mesenteric vein Ruptured appendix Peritonitis E. coli Sepsis Acute kidney injury Perianal abscess Patient presently on Eliquis Presented to ER today c/o heavy vaginal bleeding x several days No pain Evaluation in ER shows: Hgb 5.9; a decrease from 13 at the end of July Pelvic sono uterus 11.5 x 4.7 x 5.8 Endometrium 2.2 cm, heterogeneous Ovaries not seen Moderate free fluid CT thrombus in superior mesenteric vein Large amount of blood and clots in endometrial cavity Right adnexal hemorrhage and free peritoneal fluid Patient is presently receiving blood transfusions Medications/Allergies Home Medications Medication Instructions Recorded Confirmed Last Taken Type medroxyprogesterone 150 mg/mL See Rx Instructions .Route 07/23/24 08/03/24 Unknown Rx intramuscular suspension .COMPLEX #1 mL acetaminophen 325 mg tablet 325 mg PO Q4H 08/03/24 08/03/24 Unknown History apixaban 5 mg tablet (Eliquis) 5 mg PO BID 08/03/24 08/03/24 Unknown History Allergies Allergy/AdvReac Type Severity Reaction Status Date / Time No Known Allergies Allergy Verified 07/15/24 16:14 PFSH UNMANNED EQUIPMENT OPERATOR 2 PFSH: Medical History No pertinent past medical history Denies diabetes, asthma, hypertension, seizures, DVT/PE PCP: Sees any of the providers at [facility] Surgical History Status post delivery 03/10/2021--primary low transverse delivery by Dr. Bowers at [facility] [place] for unstable lie. ---> No extensions, double layer closure Family History Brother Diabetes Father Heart disease Hypertension Grandmother Stroke Paternal Denies family history of Colon cancer Ovarian cancer Hyperlipidemia Breast cancer Uterine cancer Thyroid disease Social History Smoking and tobacco/nicotine status: never used tobacco/nicotine Second hand smoke exposure: No Alcohol intake: never Substance/Drug Use: never Vitals/I&O/Wt Last Vital Signs Temp 98.0 F 08/03/24 12:51 Pulse 118 H 08/03/24 16:03 Resp 16 08/03/24 13:06 BP 128/88 08/03/24 16:03 Pulse Ox 100 08/03/24 16:03 O2 Del Method Room Air 08/03/24 10:31 08/03/24 08/03/24 08/03/24 06:59 14:59 22:59 Intake Total 0 / 0 700 / 700 Balance 0 / 0 700 / 700 Weight last 48 hrs Weight 170 lb Physical Exam 2 Narrative: Weight 170 lbs; 5?5? General pale Comfortable, awake, alert Abd: soft, nontender Data 08/03/24 11:06 08/03/24 11:06 A&P Assessment and plan (1) Abnormal uterine bleeding due to disorder of endometrium: Heavy vaginal bleeding Hemoperitoneum Possible hemorrhagic ovarian cyst Acute blood loss anemia On Eliquis h/o multiple co-morbidities h/o superior mesenteric vein thrombosis recommend stabilization with blood transfusion possible TXA patient is not a candidate for estrogen rx patient may need vascular interventional treatment options or surgical tx if she does not stabilize or have decrease in her vaginal bleeding recommend transfer patient to tertiary center where vascular options are available and higher levels of application development specialist surgery care Consult Attestations 2 Medical Necessity Statement: patient with heavy vaginal bleeding, hemoperitoneum, acute blood loss anemia Coding Level of Care Code Acute Code for Chg Fwd Diagnoses Abnormal uterine bleeding due to disorder of endometrium N93.9; N85.9 Time Spent (min) 60
--- NOTE | 2024-08-03 16:01 | PC.NURSE ---
UNABLE TO COMPLETE ORTHOSTATIC VITALS ON PT DUE TO CRITICAL STATUS
--- NOTE | 2024-08-03 16:02 | PC.NURSE ---
PT TRANSFUSED 1 UNIT OF BLOOD SECOND UNIT [facility]
== END 2024-08-03 16:12 ==
PROVIDERS: Physician Assistant; Emergency Provider Emergency Medicine; PCP Obstetrics & Gynecology
DX: N83.8 Other noninflammatory disorders of ovary, fallopian tube and broad ligament (principal); D50.0 Iron deficiency anemia secondary to blood loss (chronic); K55.059 Acute (reversible) ischemia of intestine, part and extent unspecified; N93.8 Other specified abnormal uterine and vaginal bleeding
CPT/HCPCS: 36415; 36430; 74177; 76830; 80053; 81001; 83605; 83690; 84703; 85025; 85610; 85730; 86850; 86900; 86920; 87086; 96374; 96375; 99291; 99292; J1200; J7030; P9016

== ENCOUNTER → 2024-08-09 13:21 | Outpatient (BNVA) | payer OTHER, SELFPAY | PROVIDERS: PCP Obstetrics & Gynecology; Visit Provider Family Medicine | DX: D62 Acute posthemorrhagic anemia (principal) | CPT/HCPCS: 85025 ==

== ENCOUNTER → 2024-08-20 13:00 | Outpatient (BNVA) | payer OTHER, SELFPAY | PROVIDERS: PCP Obstetrics & Gynecology; Visit Provider Family Medicine | DX: D64.9 Anemia, unspecified (principal) | CPT/HCPCS: 85025 ==

== ENCOUNTER → 2024-09-11 11:52 | Outpatient (BNVA) | payer OTHER, SELFPAY | PROVIDERS: PCP Family Medicine; Visit Provider Student in an Organized Health Care Education/Training Program | DX: K55.069 Acute infarction of intestine, part and extent unspecified (principal) | CPT/HCPCS: 36415; 86160; 86162; 86235; 86255; 86376 ==

== ENCOUNTER 2024-09-26 15:14 | Oncology outpatient (recurring) (ONCR) | payer OTHER, SELFPAY ==
[2024-09-26 17:04] LABS: Erythrocyte Sedimentation Rate 18 mm/hr (0-15)
[2024-09-26 17:17] LABS: Basophils # 0.1 10^3/uL (0.0-0.1); Basophils % 0.6 %; Eosinophils # 0.4 10^3/uL (0.0-0.8); Eosinophils % 4.6 %; Hematocrit 37.4 % (36-47); Lymphocytes # 2.7 10^3/uL (0.8-4.8); Mean Corpuscular HGB Conc 33.2 g/dL (30-55); Mean Corpuscular Hemoglobin 29.3 pg (27-33); Mean Corpuscular Volume 88.4 fl (85-98); Mean Platelet Volume 8.4 fL (7.4-10.4); Monocytes # 0.6 10^3/uL (0.2-0.9); Monocytes % 7.1 %; Neutrophils % 55.5 %; Nucleated Red Blood Cells % 0 %; Platelet Count 401 10^3/cmm (157-399); Red Blood Count 4.23 10^6/uL (3.85-5.65); Red Cell Distribution Width 13.2 % (12.1-15.1); Reticulocyte % 1.5 % (0.5-2.0); White Blood Count 8.47 10^3/uL (3.29-11.43)
[2024-09-26 17:23] LABS: D Dimer 1.51 ug/mLFEU (0-0.59)
[2024-09-26 17:40] LABS: Alanine Aminotransferase 31 U/L (0-33); Albumin Level 4.6 g/dL (3.5-5.2); Alkaline Phosphatase 101 U/L (35-105); Anion Gap 16.9 (5-19); Aspartate Amino Transferase 20 U/L (0-32); Blood Urea Nitrogen 7 mg/dL (6-20); C Reactive Protein 7.6 mg/L (0.0-4.9); Calcium 9.4 mg/dL (8.5-10.5); Carbon Dioxide 21 mmol/L (22-29); Chloride 110 mmol/L (98-107); Creatinine Clr Calc Pharmacy 164.0769; Ferritin 32 ng/mL (15-150); Globulin 2.8 g/dL (1.3-4.6); Glomerular Filtration Rate 138.1 mL/min (90-130); Glucose 87 mg/dL (65-115); Iron 32 ug/dL (37-145); Osmolality Calculated 295 mOsm/kg (285-295); Percent Saturation 9.4 % (20-50); Potassium 3.9 mmol/L (3.5-5.1); Sodium 144 mmol/L (136-145); Total Bilirubin 0.2 mg/dL (0.15-1.2); Total Iron Binding Capacity 338 mcg/dl; Total Protein 7.4 g/dL (6.6-8.7); Unsaturated Iron Binding 306 ug/dL (112-347)
[2024-09-26 17:52] LABS: Lactate Dehydrogenase 196 U/L (135-214)
[2024-09-26 17:54] LABS: Vitamin B12 374 pg/mL (232-1245)
[2024-09-26 17:55] LABS: Folate Level 6.6 ng/mL (4.8-37.3)
== END 2024-09-28 23:59 | disposition home or self-care (01) ==
PROVIDERS: Internal Medicine; PCP Family Medicine; Visit Provider Student in an Organized Health Care Education/Training Program
DX: K55.059 Acute (reversible) ischemia of intestine, part and extent unspecified (principal); D64.9 Anemia, unspecified; Z79.01 Long term (current) use of anticoagulants
CPT/HCPCS: 36415; 80053; 82607; 82728; 82746; 83010; 83540; 83550; 83615; 85025; 85045; 85378; 85651; 86140

== ENCOUNTER 2024-10-24 12:38 | Oncology outpatient (recurring) (ONCR) | payer OTHER, SELFPAY ==
[2024-10-24 13:03] LABS: Basophils % 0.5 %; Eosinophils # 0.3 10^3/uL (0.0-0.8); Eosinophils % 3.4 %; Lymphocytes # 2.5 10^3/uL (0.8-4.8); Lymphocytes % 32.3 %; Mean Corpuscular HGB Conc 32.9 g/dL (30-55); Mean Corpuscular Hemoglobin 28.8 pg (27-33); Mean Corpuscular Volume 87.6 fl (85-98); Mean Platelet Volume 8.1 fL (7.4-10.4); Monocytes # 0.4 10^3/uL (0.2-0.9); Monocytes % 5.5 %; Neutrophils # 4.35 10^3/uL (1.8-7.7); Neutrophils % 57.4 %; Nucleated Red Blood Cells % 0 %; Platelet Count 344 10^3/cmm (157-399); Red Blood Count 4.34 10^6/uL (3.85-5.65); Red Cell Distribution Width 13.2 % (12.1-15.1); Reticulocyte % 1.5 % (0.5-2.0); White Blood Count 7.59 10^3/uL (3.29-11.43)
[2024-10-24 13:08] LABS: Erythrocyte Sedimentation Rate 11 mm/hr (0-15)
[2024-10-24 13:21] LABS: D Dimer 1.41 ug/mLFEU (0-0.59)
[2024-10-24 13:23] LABS: Alanine Aminotransferase 28 U/L (0-33); Albumin Level 4.5 g/dL (3.5-5.2); Alkaline Phosphatase 93 U/L (35-105); Anion Gap 15.6 (5-19); Aspartate Amino Transferase 18 U/L (0-32); Blood Urea Nitrogen 10 mg/dL (6-20); C Reactive Protein 6.6 mg/L (0.0-4.9); Calcium 9.6 mg/dL (8.5-10.5); Carbon Dioxide 20 mmol/L (22-29); Chloride 108 mmol/L (98-107); Ferritin 32 ng/mL (15-150); Globulin 2.6 g/dL (1.3-4.6); Glomerular Filtration Rate 111.9 mL/min (90-130); Glucose 91 mg/dL (65-115); Iron 46 ug/dL (37-145); Lactate Dehydrogenase 171 U/L (135-214); Osmolality Calculated 289 mOsm/kg (285-295); Percent Saturation 14.2 % (20-50); Potassium 3.6 mmol/L (3.5-5.1); Sodium 140 mmol/L (136-145); Total Bilirubin 0.3 mg/dL (0.15-1.2); Total Iron Binding Capacity 323 mcg/dl; Total Protein 7.1 g/dL (6.6-8.7); Unsaturated Iron Binding 277 ug/dL (112-347)
[2024-10-24 13:37] LABS: Vitamin B12 347 pg/mL (232-1245)
[2024-10-24 13:44] LABS: Folate Level 7.4 ng/mL (4.8-37.3)
== END 2024-10-29 23:59 | disposition home or self-care (01) ==
PROVIDERS: Internal Medicine; PCP Family Medicine; Visit Provider Student in an Organized Health Care Education/Training Program
DX: K55.059 Acute (reversible) ischemia of intestine, part and extent unspecified (principal); D50.9 Iron deficiency anemia, unspecified; Z79.01 Long term (current) use of anticoagulants
CPT/HCPCS: 36415; 80053; 82607; 82728; 82746; 83010; 83540; 83550; 83615; 85025; 85045; 85378; 85651; 86140

== ENCOUNTER 2025-01-23 16:06 | Oncology outpatient (recurring) (ONCR) | payer OTHER, SELFPAY ==
[2025-01-23 15:26] LABS: Basophils # 0.1 10^3/uL (0.0-0.1); Basophils % 0.7 %; Eosinophils # 0.5 10^3/uL (0.0-0.8); Eosinophils % 7.2 %; Hematocrit 37.7 % (36-47); Lymphocytes % 26.1 %; Mean Corpuscular HGB Conc 34.7 g/dL (30-55); Mean Corpuscular Hemoglobin 30.5 pg (27-33); Mean Corpuscular Volume 87.9 fl (85-98); Mean Platelet Volume 8.1 fL (7.4-10.4); Monocytes # 0.3 10^3/uL (0.2-0.9); Monocytes % 4.4 %; Neutrophils # 4.59 10^3/uL (1.8-7.7); Neutrophils % 61.3 %; Nucleated Red Blood Cells % 0 %; Platelet Count 366 10^3/cmm (157-399); Red Blood Count 4.29 10^6/uL (3.85-5.65); Red Cell Distribution Width 13.8 % (12.1-15.1); White Blood Count 7.48 10^3/uL (3.29-11.43)
[2025-01-23 15:28] LABS: Erythrocyte Sedimentation Rate 9 mm/hr (0-15)
[2025-01-23 15:46] LABS: Alanine Aminotransferase 25 U/L (0-33); Albumin Level 4.1 g/dL (3.5-5.2); Alkaline Phosphatase 91 U/L (35-105); Aspartate Amino Transferase 17 U/L (0-32); Chloride 109 mmol/L (98-107); Ferritin 58 ng/mL (15-150); Iron 46 ug/dL (37-145); Lactate Dehydrogenase 193 U/L (135-214); Percent Saturation 15.6 % (20-50); Potassium 3.6 mmol/L (3.5-5.1); Sodium 141 mmol/L (136-145); Total Iron Binding Capacity 294 mcg/dl; Unsaturated Iron Binding 248 ug/dL (112-347)
[2025-01-23 16:23] LABS: Anion Gap 18.6 (5-19); Blood Urea Nitrogen 7 mg/dL (6-20); Calcium 9.1 mg/dL (8.5-10.5); Carbon Dioxide 17 mmol/L (22-29); Globulin 2.7 g/dL (1.3-4.6); Glomerular Filtration Rate 138.1 mL/min (90-130); Glucose 147 mg/dL (65-115); Osmolality Calculated 293 mOsm/kg (285-295); Total Bilirubin 0.3 mg/dL (0.15-1.2); Total Protein 6.8 g/dL (6.6-8.7); Vitamin B12 421 pg/mL (232-1245)
== END 2025-01-28 23:59 | disposition home or self-care (01) ==
PROVIDERS: Internal Medicine; PCP Family Medicine; Visit Provider Internal Medicine
DX: D64.9 Anemia, unspecified (principal); K55.069 Acute infarction of intestine, part and extent unspecified; I82.90 Acute embolism and thrombosis of unspecified vein
CPT/HCPCS: 36415; 80053; 82607; 82728; 82746; 83010; 83540; 83550; 83615; 85025; 85045; 85378; 85651; 86140

== ENCOUNTER 2025-07-17 13:17 | Oncology outpatient (recurring) (ONCR) | payer OTHER, SELFPAY ==
[2025-07-17 13:42] LABS: Hematocrit 39.9 % (36-47); Hemoglobin 13.40 g/dL (11.27-16.99); Mean Corpuscular HGB Conc 33.6 g/dL (30-55); Mean Corpuscular Hemoglobin 29.6 pg (27-33); Mean Corpuscular Volume 88.1 fl (85-98); Nucleated Red Blood Cells % 0 %; Platelet Count 349 10^3/cmm (157-399); Red Blood Count 4.53 10^6/uL (3.85-5.65); White Blood Count 10.21 10^3/uL (3.29-11.43)
[2025-07-17 14:09] LABS: Alanine Aminotransferase 23 U/L (0-33); Albumin Level 4.3 g/dL (3.5-5.2); Alkaline Phosphatase 89 U/L (35-105); Anion Gap 15.8 (5-19); Aspartate Amino Transferase 16 U/L (0-32); Blood Urea Nitrogen 9 mg/dL (6-20); Calcium 9.4 mg/dL (8.5-10.5); Carbon Dioxide 21 mmol/L (22-29); Chloride 104 mmol/L (98-107); Ferritin 133 ng/mL (15-150); Globulin 2.8 g/dL (1.3-4.6); Glucose 122 mg/dL (65-115); Iron 71 ug/dL (37-145); Osmolality Calculated 284 mOsm/kg (285-295); Potassium 3.8 mmol/L (3.5-5.1); Sodium 137 mmol/L (136-145); Total Iron Binding Capacity 292 mcg/dl; Total Protein 7.1 g/dL (6.6-8.7); Unsaturated Iron Binding 221 ug/dL (112-347)
== END 2025-07-31 23:59 | disposition home or self-care (01) ==
PROVIDERS: PCP Family Medicine; Visit Provider Internal Medicine
DX: D64.9 Anemia, unspecified (principal); I82.90 Acute embolism and thrombosis of unspecified vein; K55.069 Acute infarction of intestine, part and extent unspecified
CPT/HCPCS: 80053; 82728; 83540; 83550; 85025